=== PATIENT | female | born 1950 | race Caucasian/White ===

== ENCOUNTER 2019-12-01 11:28 | Inpatient (IN) | payer MEDICARE, SELFPAY ==
[2019-12-01] VITALS (11 sets, daily range): BP systolic 101–144; BP diastolic 49–87; PULSE 64–154; RESP 16–26; TEMP 36.1–36.4; O2SAT 98–100; BMI 31.3
--- NOTE | ~2019-12-01 | CT_ITS ---
EXAMINATION: CT abdomen pelvis w con EXAM DATE: 12/01/2019 21:01 INDICATION: Abdominal pain, bloating, fever and diarrhea. TECHNIQUE: Spiral CT of the abdomen and pelvis was performed following intravenous injection of 100 m L Omnipaque 350. Axial, coronal and sagittal images were reviewed. The dose-length product (DLP) fo r this examination was 680.92 mGy-cm. The exposure was tailored according to patient size (auto mA e xposure control), and iterative reconstruction (ASIR) was used as additional dose reduction technique . Comparison is made to prior examination from 02/17/2018. FINDINGS: The liver, spleen, adrenal glands and pancreas are unremarkable. There are cholecystectomy clips. Portal and splenic veins are patent. Kidneys enhance symmetrically. There is no hydronephr osis. The uterus is not identified and has likely been surgically resected. The bladder is unremar kable. There is no retroperitoneal or pelvic lymphadenopathy. There is mild scattered arterioscler otic disease. The appendix is not positively visualized. There is no pericecal inflammatory change to suggest appe ndicitis. Mild diffuse colonic edema, with colonic fluid. Mild sigmoid diverticulosis without adjac ent inflammation. There is expected amount of colonic stool. No free intraperitoneal gas. The he art is normal in size. There are no pericardial or pleural effusions. The lung bases are unremarkab le. There are no osteoblastic or osteolytic lesions identified. IMPRESSION: 1. Mild pancolitis. Could be enterocolitis given colonic fluid, diarrhea. 2. Mild sigmoid diverticulosis. Reviewed, dictated and finalized at location A. GATION INSTALLATION SPECIALIST
[2019-12-01 11:57] LABS: Basophils Absolute Auto 0.1 K/mm3 (0.0-0.1); Basophils Percent Auto 0.9 % (0.2-1.2); Eosinophils Absolute Auto 0.1 K/mm3 (0-0.3); Eosinophils Percent Auto 0.9 % (0-4.4); Hematocrit 42.3 % (37.0-47.0); Hemoglobin 14.2 g/dL (12.0-15.0); Immature Granulocyte Absolute 0.07 K/mm3 (0.00-0.031); Immature Granulocyte Percent A 0.6 % (0-0.5); Lymphocytes Absolute Auto 1.63 K/mm3 (0.9-3.2); Lymphocytes Percent Auto 14.1 % (18.3-44.2); Mean Corpuscular HGB Conc 33.6 g/dl (32-36); Mean Corpuscular Hemoglobin 29.3 pg (26-34); Mean Corpuscular Volume 87.2 fl (80-100); Mean Platelet Volume 9.8 fl (7.4-10.4); Monocytes Absolute Auto 0.6 K/mm3 (0.1-0.6); Monocytes Percent Auto 5.2 % (2.6-8.5); Neutrophils Absolute Auto 9.1 K/mm3 (1.3-6.7); Neutrophils Percent Auto 78.3 % (45.5-73.1); Platelet Count Result 468 k/mm3 (150-375); Red Blood Count 4.85 M/mm3 (4.2-5.4); Red Cell Distribution Width 13.2 % (11.5-14.5); White Blood Count 11.6 K/mm3 (4.5-10.0)
--- NOTE | 2019-12-01 12:03 | ECG_ITS ---
Measurements Intervals Veteran Rate: 116 P: [place]: 0 QRS: 73 QRSD: 101 T: -22 QT: 327 QTc: 455 Interpretive Statements ATRIAL FIBRILLATION WITH RAPID VENTRICULAR RESPONSE NONSPECIFIC ST & T-WAVE ABNORMALITY- INF/LAT LEADS BASELINE ARTIFACT- I, II, III, AVF ABNORMAL ECG Electronically Signed On 12-01-2019 13:22:34 BLENDER/BRAZE APPLICATOR by Neo Flores D.O.
[2019-12-01 12:09] LABS: Alanine Aminotransferase 26 U/L (4-35); Albumin Level 4.4 g/dL (3.5-5.1); Alkaline Phosphatase 92 U/L (38-126); Aspartate Amino Transferase 37 U/L (14-36); Bilirubin,Total 0.8 mg/dL (0.2-1.3); Blood Urea Nitrogen 12 mg/dL (7-17); Calcium 8.8 mg/dL (8.4-10.2); Carbon Dioxide 17 mmol/L (22-30); Chloride 103 mmol/L (98-107); Estimated CRCL calculation 52 ml/min; Estimated Glomerular Filt Rate > 60; Glucose 112 mg/dL (65-105); Lipase 34 U/L (23-300); Potassium 3.1 mmol/L (3.4-5.0); Sodium 136 mmol/L (137-145)
--- NOTE | 2019-12-01 12:22 | ED.NAVMDI ---
HPI - Nausea/Vomiting/Diarrhea General Chief complaint: Nausea/Vomiting/Diarrhea Stated complaint: fever, nausea, diarrhea Time Seen by Provider: 12/01/19 11:41 Source: patient and RN notes reviewed Mode of arrival: ambulatory Limitations: no limitations History of Present Illness HPI Narrative: Pt is a 69 y/o female who presents to the ED with c/o nausea, vomiting, and diarrhea. She notes that she took Amoxicillin 4 days ago for routine dental work, and states that she began having diarrhea the following day. Pt notes that she took a large amount of Imodium for her symptoms 3 days ago. She states that her diarrhea resolved 2 days ago, but returned around 12:00 PM yesterday. Pt notes that she also developed a fever, headache, and lightheadedness earlier yesterday. She states that she has had roughly 20 episodes of diarrhea throughout the night last night. Pt notes that her stools have been yellow and watery, and denies any gross hematochezia. She also reports having yellow-colored emesis and ABD cramping since yesterday. Pt notes that she has a Hx of A-Fib, and states that she began having palpitations earlier this morning. She currently denies any neck pain, cough, or rhinorrhea. MD elicited complaint: nausea, vomiting and diarrhea Onset (ago): day(s) (4) Description of vomiting: bilious Description of diarrhea: watery and other (yellow) Associated nausea: Yes Associated abdominal pain: Yes Location of pain: diffuse Quality: cramping Associated symptoms: fever/chills (fever), headaches, palpitation and other (lightheadedness) Related Data Home Medications Medication Instructions Recorded Confirmed aspirin 81 mg tablet,delayed 81 mg PO DAILY 09/29/19 12/01/19 release fluoxetine 20 mg capsule 20 mg PO DAILY 09/29/19 12/01/19 multivitamin 1 tablet PO DAILY 09/29/19 12/01/19 nifedipine 30 mg tablet,extended 30 mg PO DAILY 09/29/19 12/01/19 release pravastatin 10 mg tablet 10 mg PO DAILY 09/29/19 12/01/19 calcium carbonate [Calcium 600] 2,400 mg PO HS 12/01/19 12/01/19 cholecalciferol (vitamin D3) 5,000 unit PO HS 12/01/19 12/01/19 [Vitamin D3] cyanocobalamin (vitamin B-12) 6,000 mcg PO DAILY 12/01/19 12/01/19 [Vitamin B-12] metoprolol tartrate 50 mg PO Q12H 12/01/19 12/01/19 Allergies Allergy/AdvReac Type Severity Reaction Status Date / Time lisinopril Allergy Mild dizzy Verified 09/29/19 08:15 alendronate sodium Allergy Unknown Hives Verified 11/15/17 13:58 Review of Systems Review of Systems: All systems reviewed & are unremarkable except as noted in HPI and below Constitutional: Constitutional: Denies chills, Reports fever(s), Reports headache(s) and Denies weakness ENT: Denies nasal discharge and Denies neck pain Cardiovascular: Cardiovascular: Denies chest pain, Reports palpitations and Denies dyspnea Respiratory: Respiratory: Denies cough and Denies dyspnea Gastrointestinal: Gastrointestinal: Reports abdominal pain (ABD cramping), Denies hematochezia, Reports diarrhea, Reports nausea and Reports vomiting Genitourinary: Genitourinary: Denies hematuria and Denies dysuria Musculoskeletal: Musculoskeletal: Denies back pain and Denies neck pain Neurologic: Reports other (lightheadedness) PENDING SALE TO [facility] Past Medical History Medical History (Updated 12/02/19 @ 10:08 by Autumn Mcintosh MD) Anxiety Degenerative joint disease GERD (gastroesophageal reflux disease) History of rectal polyps Hypertension Hypothyroidism IBS (irritable bowel syndrome) MDD (major depressive disorder), recurrent episode, moderate Mixed hyperlipidemia Paroxysmal atrial fibrillation On metoprolol. She is not on long-term anticoagulation. Surgical History Surgical History (Updated 12/01/19 @ 22:12 by Piedad Galvan PA-C) History of hysterectomy History of total left knee replacement With revision. Hx of appendectomy Hx of carpal tunnel repair Hx of cataract surgery Hx of cholecystectomy Hx of tubal ligation S/P partial thyroid
[2019-12-01] MEDS: SODIUM CHLORIDE 0.9% IV 1,000 ML 999 ML IV CONT (12:54)
[2019-12-01] MEDS: POTASSIUM CHLORIDE 20 MEQ TABLET 40 MEQ PO (14:01)
[2019-12-01 14:24] LABS: Add Urine Microscopic? YES; Appearance Urine Clear (Clear); Bacteria Urine Trace /hpf; Bilirubin Urine Negative (Negative); Blood Urine 1+ (Negative); Color Urine Yellow (Yellow); Glucose Urine UA Negative (Negative); Ketones Urine Trace mg/dL (Negative); Leukocyte Esterase Ur Negative LEU/UL (Negative); Mucus Urine Rare /lpf; Nitrate Urine Negative (Negative); Protein Urine Negative (Negative); RBC Urine 0-2 /hpf (0-2); Specific Grav Ur 1.009 (1.001-1.035); Squamous Epithelial Cell Urine Occasional /hpf (Few); Urobilinogen Urine Negative mg/dL (<2.0)
--- NOTE | 2019-12-01 17:08 | ADMGEN ---
This patient, Eugenia Chang, was admitted to 2 Medical Room 255-01. Patient/family oriented to hospital policies and general routines including ID bracelet, bed and alarms, visiting hours, pain management, procedures, bathroom and other care routines, personal items, smoking policy, room service/diet, and visiting hours. Valuables list has been completed. Information on how to activate the Rapid Response Team has been discussed. Patient/Family are encouraged to report perceived risks to care and to ask questions if they do not understand what they are told or what they should do. Report received from PAULINE Beltran.
[2019-12-01] MEDS: SODIUM CHLORIDE 0.9% IV 1,000 ML 125 ML IV CONT (17:36)
--- NOTE | 2019-12-01 19:15 | PM.IMHP ---
H&P: HPI History of Present Illness Chief complaint: Fever, nausea, diarrhea. Narrative: Eugenia Chang is a very pleasant 69-year-old female with hypertension, hypothyroidism, paroxysmal atrial fibrillation, and GERD who presented to the emergency department earlier this morning from home for evaluation of nausea, diarrhea, and fever. She had a routine teeth cleaning at her dentist on Wednesday, and notes having to take prophylactic antibiotics (4 - 500 milligram tablets of amoxicillin) since a knee replacement. She was found to have a cavity at that visit, and returned on Wednesday to have that filled. She was instructed once again to take another dose of prophylactic antibiotics, again taking a total of 4 tablets of amoxicillin 500 milligrams. Later that afternoon, she began having diarrhea for which she took Imodium without much benefit. She continues to have innumerable bouts of diarrhea, at least 20 episodes per day. The stools are foul smelling and are described as yellow and watery in nature. Additionally, she has had nausea and notes 1 episode of emesis this morning. Yesterday evening she developed chills, shakes, and had a temperature of 103?. She has also been having diffuse abdominal cramping, more so in the lower abdomen. Today she was lightheaded and weak, and felt it would be best to come in for evaluation. She denies sick contacts. No recent travel. No history of C diff. She denies blood in mucus in the stool. Review of Systems Review of Systems: Narrative: Twelve systems were reviewed with pertinent positives and negatives as per HPI. No sinus congestion, rhinorrhea, otalgia, or odynophagia. She feels mildly short of breath, especially after having diarrhea. She denies cough and wheezing. No chest pain. She did go into AFib at about 0130 this morning, initially it was rapid but her heart rate slowed down after receiving IV fluids in the emergency department. She now believes that she is in a normal sinus rhythm. No dysuria. Except as documented, all other systems were reviewed and are negative. [facility] Past Medical History Medical History (Updated 12/01/19 @ 22:19 by Piedad Galvan PA-C) Anxiety Degenerative joint disease GERD (gastroesophageal reflux disease) History of rectal polyps Hypertension Hypothyroidism IBS (irritable bowel syndrome) MDD (major depressive disorder), recurrent episode, moderate Mixed hyperlipidemia Paroxysmal atrial fibrillation On metoprolol. She is not on long-term anticoagulation. Surgical History Surgical History (Updated 12/01/19 @ 22:12 by Piedad Galvan PA-C) History of hysterectomy History of total left knee replacement With revision. Hx of appendectomy Hx of carpal tunnel repair Hx of cataract surgery Hx of cholecystectomy Hx of tubal ligation S/P partial thyroidectomy For benign thyroid nodules. Family History Family History Mother Hypertension Uterine cancer High cholesterol Sibling PAD (peripheral artery disease) Hx of heart artery stent Father Family history of heart disease in male family member before age 55, Onset Age: 70 CHF (congestive heart failure) Sibling Hypertension High cholesterol Sibling Pancreatic cancer History of quadruple bypass CHF (congestive heart failure) Social History Social History (Updated 12/01/19 @ 22:12 by Piedad Galvan PA-C) Social History: The patient is and lives with her in [place]. 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 No alcohol or drug abuse. She designates her as her surrogate decision maker and she wishes to be a full code. Spiritual care concerns: No Agree to blood products: Yes Meds Home Medications and Allergies Home Medications Medication Instructions Recorded Confirmed Type aspirin 81 m
[2019-12-01 20:29] LABS: Lactic Acid Reflex 1.2 mmol/L (0.7-2.1)
[2019-12-01 20:38] LABS: Blood Urea Nitrogen 11 mg/dL (7-17); Calcium 8.5 mg/dL (8.4-10.2); Carbon Dioxide 27 mmol/L (22-30); Chloride 104 mmol/L (98-107); Estimated CRCL calculation 59 ml/min; Estimated Glomerular Filt Rate > 60; Glucose 113 mg/dL (65-105); Magnesium 1.7 mg/dL (1.6-2.3); Phosphorus 1.7 mg/dL (2.5-4.5); Potassium 2.8 mmol/L (3.4-5.0); Sodium 139 mmol/L (137-145)
--- NOTE | 2019-12-01 22:45 | PC.NURSE ---
12-01-2019 @1445, called and left message for pharmacy for IV dose of potassium phos
[2019-12-01] MEDS: METOPROLOL TARTRATE 50 MG TAB PO (22:46)
[2019-12-01] MEDS: CALCIUM CARBONATE (TUMS) 500 MG (200 MG ELEMENTAL) 800 MG PO (22:46)
--- NOTE | 2019-12-01 23:30 | PC.NURSE ---
12/01/2019 @5163. 2nd call to pharmacy to get IV potassium phos. Per Masood he will send it up
[2019-12-01] MEDS: VANCOMYCIN ORAL 125 MG/2.5 ML SYRUP PO (23:40)
[2019-12-01] MEDS: CHOLECALCIFEROL 1,000 UNIT TABLET 5000 UNITS PO (23:40)
[2019-12-01] MEDS: POTASSIUM PHOS,M-BASIC-D-BASIC 20 MMOL in SODIUM CHLORIDE 0.9% IV 250 ML 62.5 MMOL IVPB (23:40)
[2019-12-02] VITALS (10 sets, daily range): BP systolic 124–137; BP diastolic 54–64; PULSE 63–83; RESP 16; TEMP 36.2–36.4; O2SAT 98–100
[2019-12-02 05:35] LABS: Basophils Percent Auto 0.5 % (0.2-1.2); Eosinophils Absolute Auto 0.2 K/mm3 (0-0.3); Eosinophils Percent Auto 1.9 % (0-4.4); Hematocrit 33.2 % (37.0-47.0); Immature Granulocyte Absolute 0.05 K/mm3 (0.00-0.031); Immature Granulocyte Percent A 0.6 % (0-0.5); Lymphocytes Absolute Auto 1.78 K/mm3 (0.9-3.2); Lymphocytes Percent Auto 20.3 % (18.3-44.2); Mean Corpuscular HGB Conc 33.1 g/dl (32-36); Mean Corpuscular Volume 90.5 fl (80-100); Mean Platelet Volume 9.9 fl (7.4-10.4); Monocytes Absolute Auto 0.7 K/mm3 (0.1-0.6); Monocytes Percent Auto 7.5 % (2.6-8.5); Neutrophils Absolute Auto 6.1 K/mm3 (1.3-6.7); Neutrophils Percent Auto 69.2 % (45.5-73.1); Platelet Count Result 355 k/mm3 (150-375); Red Blood Count 3.67 M/mm3 (4.2-5.4); Red Cell Distribution Width 13.4 % (11.5-14.5); White Blood Count 8.8 K/mm3 (4.5-10.0)
[2019-12-02] MEDS: SODIUM CHLORIDE 0.9% IV 1,000 ML 125 ML IV CONT (05:44)
[2019-12-02] MEDS: LEVOTHYROXINE SODIUM 100 MCG TABLET PO (05:44)
[2019-12-02] MEDS: VANCOMYCIN ORAL 125 MG/2.5 ML SYRUP PO ×3 (05:44→17:00)
[2019-12-02 05:54] LABS: Blood Urea Nitrogen 8 mg/dL (7-17); Calcium 8.2 mg/dL (8.4-10.2); Carbon Dioxide 23 mmol/L (22-30); Chloride 104 mmol/L (98-107); Estimated CRCL calculation 59 ml/min; Estimated Glomerular Filt Rate > 60; Glucose 82 mg/dL (65-105); Magnesium 1.8 mg/dL (1.6-2.3); Potassium 3.4 mmol/L (3.4-5.0); Sodium 137 mmol/L (137-145)
[2019-12-02] MEDS: ASPIRIN 81 MG ENTERIC TABLET PO (08:52)
[2019-12-02] MEDS: CYANOCOBALAMIN 1,000 MCG TABLET 6000 MCG PO (08:52)
[2019-12-02] MEDS: FLUOXETINE HCL 20 MG CAP PO (08:53)
[2019-12-02] MEDS: NIFEdipine 30 MG TAB.ER.24 PO (08:53)
[2019-12-02] MEDS: PANTOPRAZOLE SOD SESQUIHYDRATE 20 MG TAB PO ×2 (08:54→16:56)
[2019-12-02] MEDS: METOPROLOL TARTRATE 50 MG TAB PO ×2 (08:55→21:24)
[2019-12-02] MEDS: PRAVASTATIN SODIUM 10 MG TABLET PO (08:55)
--- NOTE | 2019-12-02 09:38 | PM.IMPN ---
Progress Note: A&P Assessment and Plan (1) Colitis: Code(s): K52.9 - Noninfective gastroenteritis and colitis, unspecified Status: Acute Assessment and Plan: Concern for C diff given recent antibiotic use. Empiric p.o. vancomycin, pending lab confirmation. C diff toxin pending along with stool cultures at this time. The patient is on isolation for possible C diff. (2) Dehydration: Code(s): E86.0 - Dehydration Status: Acute Assessment and Plan: Secondary to volume loss from diarrhea. She was receiving aggressive IV fluid rehydration, but fluids were stopped this morning due to euvolemia. Will monitor electrolytes and bicarb levels closely. (3) Hypokalemia: Code(s): E87.6 - Hypokalemia Status: Acute Assessment and Plan: Potassium will be replaced and monitored. (4) Hypertension: Code(s): I10 - Essential (primary) hypertension Status: Acute Assessment and Plan: Blood pressures were reviewed and they are stable. Continue antihypertensives and monitor daily. (5) GERD (gastroesophageal reflux disease): Code(s): K21.9 - Gastro-esophageal reflux disease without esophagitis Status: Acute Assessment and Plan: No acute issues. Continue omeprazole. (6) Hypothyroidism: Code(s): E03.9 - Hypothyroidism, unspecified Status: Acute Assessment and Plan: Continue levothyroxine. (7) Paroxysmal atrial fibrillation: Code(s): I48.0 - Paroxysmal atrial fibrillation Status: Acute Assessment and Plan: Currently sounds to be in a normal sinus rhythm. Patient reports she was in AFib earlier this morning. Today her telemetry shows normal sinus rhythm with a heart rate of 66 with no abnormal arrhythmias noted. Will DC telemetry at this time. Continue metoprolol. Time Spent With Patient Time with patient: 25 - 35 minutes Subjective Date/time seen: 12/02/19 09:38 Interval history: Date of service 12/02/2019: The patient reports 6 bowel movements within the last few hours this morning. The patient states it is more yellow and there is some substance to her stools now. She continues to have some intermittent abdominal cramping but it is improved. She denies any fevers, chills, nausea, vomiting, chest pain, shortness of breath, leg swelling, calf pain or any other symptoms at this time. Review of Systems Review of Systems: All systems reviewed & are unremarkable except as noted in HPI and below Exam Narrative: Exam Narrative: General: 69-year-old woman sitting up on the side of the bed talking to her . Appears comfortable. In no acute distress. Skin: No jaundice or cyanosis. Good skin turgor. Neck: Full range of motion. Supple. Respiratory: Lungs are clear to auscultation bilaterally. No bony chest wall tenderness. Cardiovascular: The heart has a regular rate and rhythm without murmur. Lower extremities: No lower extremity edema. Distal pulses are easily palpated. No calf tenderness to palpation. Gastrointestinal: Mild diffuse tenderness of her abdomen with palpation. The abdomen is soft and nondistended with active bowel sounds. Psychiatric: Lucid and oriented. Memory intact. Neurologic: No focal deficits. Speech is clear. No facial drooping. Objective Data Vital Signs Vital Signs: Vital Signs - 24 hr 12/01/19 11:38 12/01/19 11:59 12/01/19 12:04 Temperature 97.6 F Pulse Rate 64 154 H Respiratory Rate 16 26 H Blood Pressure 101/49 L 106/81 119/74 Pulse Oximetry 100 12/01/19 12:05 12/01/19 14:30 12/01/19 16:23 Temperature Pulse Rate 94 115 H Respiratory Rate 16 23 H Blood Pressure 106/81 119/74 Pulse Oximetry 98 12/01/19 17:19 12/01/19 17:45 12/01/19 20:00 Temperature 96.9 F L Pulse Rate 77 78 76 Respiratory Rate 18 Blood Pressure 144/70 H Pulse Oximetry 100 12/01/19 22:00 12/01/19 2
[2019-12-02] MEDS: POTASSIUM CHLORIDE 20 MEQ TABLET 40 MEQ PO (09:41)
[2019-12-02] MEDS: MAGNESIUM SULF 2 GM/WATER 50ML 2 GM/50 ML BAG IVPB (09:41)
[2019-12-02] MEDS: CHOLECALCIFEROL 1,000 UNIT TABLET 5000 UNITS PO (21:23)
[2019-12-02] MEDS: CALCIUM CARBONATE (TUMS) 500 MG (200 MG ELEMENTAL) 800 MG PO (21:25)
[2019-12-03] MEDS: VANCOMYCIN ORAL 125 MG/2.5 ML SYRUP PO ×5 (00:09→23:48)
--- NOTE | 2019-12-03 03:06 | PC.NURSE ---
Daylight Savings Time For Daylight Savings Time Ending in the Fall - Clocks are moved back. For Daylight Savings Time Beginning in the Spring - Clocks are moved ahead. For [facility], the time of change occurs at 0200 hrs. Time is taken from the room service server. This entry on the patient's chart recognizes the change in time reflected during documentation. Example: 2 entries for vital signs may be charted for 0200 hrs.
[2019-12-03 05:42] LABS: Hematocrit 32.3 % (37.0-47.0); Hemoglobin 10.5 g/dL (12.0-15.0); Mean Corpuscular HGB Conc 32.5 g/dl (32-36); Mean Corpuscular Hemoglobin 29.6 pg (26-34); Mean Platelet Volume 9.8 fl (7.4-10.4); Platelet Count Result 373 k/mm3 (150-375); Red Blood Count 3.55 M/mm3 (4.2-5.4); Red Cell Distribution Width 13.5 % (11.5-14.5)
[2019-12-03] MEDS: LEVOTHYROXINE SODIUM 100 MCG TABLET PO (05:49)
[2019-12-03 05:52] LABS: Blood Urea Nitrogen 6 mg/dL (7-17); Calcium 8.6 mg/dL (8.4-10.2); Carbon Dioxide 25 mmol/L (22-30); Chloride 110 mmol/L (98-107); Estimated CRCL calculation 66 ml/min; Estimated Glomerular Filt Rate > 60; Glucose 95 mg/dL (65-105); Magnesium 1.9 mg/dL (1.6-2.3); Potassium 3.6 mmol/L (3.4-5.0); Sodium 138 mmol/L (137-145)
[2019-12-03 06:00] VITALS: BP 130/56; PULSE 59; RESP 16; TEMP 36; O2SAT 99
[2019-12-03] MEDS: CYANOCOBALAMIN 1,000 MCG TABLET 6000 MCG PO (08:52)
[2019-12-03] MEDS: ASPIRIN 81 MG ENTERIC TABLET PO (08:52)
[2019-12-03 08:53] VITALS: PULSE 66
[2019-12-03] MEDS: METOPROLOL TARTRATE 50 MG TAB PO ×2 (08:53→21:09)
[2019-12-03] MEDS: FLUOXETINE HCL 20 MG CAP PO (08:53)
[2019-12-03] MEDS: PANTOPRAZOLE SOD SESQUIHYDRATE 20 MG TAB PO ×2 (08:53→17:12)
[2019-12-03] MEDS: NIFEdipine 30 MG TAB.ER.24 PO (08:53)
[2019-12-03] MEDS: PRAVASTATIN SODIUM 10 MG TABLET PO (08:53)
[2019-12-03 14:00] VITALS: BP 136/75; PULSE 66; RESP 18; TEMP 36.7; O2SAT 98
--- NOTE | 2019-12-03 15:34 | PM.IMPN ---
Progress Note: A&P Assessment and Plan (1) Colitis: Code(s): K52.9 - Noninfective gastroenteritis and colitis, unspecified Status: Acute Assessment and Plan: Concern for C diff given recent antibiotic use. Empiric p.o. vancomycin, pending lab confirmation. C diff toxin pending along with stool cultures at this time. The patient is on isolation for possible C diff. (2) Dehydration: Code(s): E86.0 - Dehydration Status: Acute Assessment and Plan: Secondary to volume loss from diarrhea. She is euvolemic. Will monitor electrolytes and bicarb levels closely. (3) Hypokalemia: Code(s): E87.6 - Hypokalemia Status: Acute Assessment and Plan: Potassium will be replaced and monitored. (4) Hypertension: Code(s): I10 - Essential (primary) hypertension Status: Acute Assessment and Plan: Blood pressures were reviewed and they are stable. Continue antihypertensives and monitor daily. (5) GERD (gastroesophageal reflux disease): Code(s): K21.9 - Gastro-esophageal reflux disease without esophagitis Status: Acute Assessment and Plan: No acute issues. Continue omeprazole. (6) Hypothyroidism: Code(s): E03.9 - Hypothyroidism, unspecified Status: Acute Assessment and Plan: Continue levothyroxine. (7) Paroxysmal atrial fibrillation: Code(s): I48.0 - Paroxysmal atrial fibrillation Status: Acute Assessment and Plan: Currently sounds to be in a normal sinus rhythm. Patient reports she was in AFib earlier this morning. Today her telemetry shows normal sinus rhythm with a heart rate of 66 with no abnormal arrhythmias noted. Will DC telemetry at this time. Continue metoprolol. Time Spent With Patient Time with patient: 25 - 35 minutes Subjective Date/time seen: 12/03/19 15:34 Interval history: Date of service 12/03/2019: The patient is feeling better todays. She has had a few bowel movements today and they are more formed, brown in color, and denies any abdominal craming. She is eating and drinking without any issues. She denies any fevers, chills, nausea, vomiting, chest pain, shortness of breath, leg swelling, calf pain or any other symptoms at this time. Review of Systems Review of Systems: All systems reviewed & are unremarkable except as noted in HPI and below Exam Narrative: Exam Narrative: General: 69-year-old woman sitting up on the side of the bed doing a word search. Appears comfortable. In no acute distress. Skin: No jaundice or cyanosis. Good skin turgor. Neck: Full range of motion. Supple. Respiratory: Lungs are clear to auscultation bilaterally. No bony chest wall tenderness. Cardiovascular: The heart has a regular rate and rhythm without murmur. Lower extremities: No lower extremity edema. Distal pulses are easily palpated. No calf tenderness to palpation. Gastrointestinal: The abdomen is soft, nontender and nondistended with active bowel sounds. Psychiatric: Lucid and oriented. Memory intact. Neurologic: No focal deficits. Speech is clear. No facial drooping. Objective Data Vital Signs Vital Signs: Vital Signs - 24 hr 12/02/19 16:00 12/02/19 21:24 12/02/19 21:34 Temperature 97.2 F L Pulse Rate 82 82 66 Respiratory Rate 16 Blood Pressure 129/57 L Pulse Oximetry 99 12/03/19 06:00 12/03/19 08:53 Temperature 96.8 F L Pulse Rate 59 L 66 Respiratory Rate 16 Blood Pressure 130/56 L Pulse Oximetry 99 Intake/Output Intake/Output: Intake & Output 11/30/19 12/01/19 12/02/19 12/04/19 23:59 23:59 23:59 00:59 Intake Total 1360 3081 1040 Output Total 1350 900 Balance 1360 1731 140 Meds/Results Medications: Active Medications Generic Name Dose Route Start Last Admin Trade Name Freq PRN Reason Stop Dose Admin Aspirin 81 mg 12/02/19 09:00 12/03/19 08:52 Aspirin Ec PO 81 mg
[2019-12-03] MEDS: CHOLECALCIFEROL 1,000 UNIT TABLET 5000 UNITS PO (21:08)
[2019-12-03] MEDS: CALCIUM CARBONATE (TUMS) 500 MG (200 MG ELEMENTAL) 800 MG PO (21:08)
[2019-12-03 21:09] VITALS: PULSE 68
[2019-12-03 21:14] VITALS: BP 160/73; PULSE 68; RESP 18; TEMP 36.2; O2SAT 100
[2019-12-04 06:00] VITALS: BP 134/71; PULSE 61; RESP 16; TEMP 36.1; O2SAT 100
[2019-12-04] MEDS: VANCOMYCIN ORAL 125 MG/2.5 ML SYRUP PO ×2 (06:43→12:46)
[2019-12-04] MEDS: LEVOTHYROXINE SODIUM 100 MCG TABLET PO (06:43)
[2019-12-04 07:07] LABS: Blood Urea Nitrogen 4 mg/dL (7-17); Calcium 8.6 mg/dL (8.4-10.2); Carbon Dioxide 25 mmol/L (22-30); Chloride 105 mmol/L (98-107); Estimated CRCL calculation 66 ml/min; Estimated Glomerular Filt Rate > 60; Glucose 85 mg/dL (65-105); Magnesium 1.7 mg/dL (1.6-2.3); Potassium 3.4 mmol/L (3.4-5.0); Sodium 138 mmol/L (137-145)
[2019-12-04 07:57] VITALS: PULSE 61
[2019-12-04] MEDS: PRAVASTATIN SODIUM 10 MG TABLET PO (07:57)
[2019-12-04] MEDS: NIFEdipine 30 MG TAB.ER.24 PO (07:57)
[2019-12-04] MEDS: CYANOCOBALAMIN 1,000 MCG TABLET 6000 MCG PO (07:57)
[2019-12-04] MEDS: METOPROLOL TARTRATE 50 MG TAB PO (07:57)
[2019-12-04] MEDS: PANTOPRAZOLE SOD SESQUIHYDRATE 20 MG TAB PO (07:58)
[2019-12-04] MEDS: FLUOXETINE HCL 20 MG CAP PO (07:58)
[2019-12-04] MEDS: ASPIRIN 81 MG ENTERIC TABLET PO (07:58)
[2019-12-04] MEDS: MAGNESIUM SULF 2 GM/WATER 50ML 2 GM/50 ML BAG IVPB (10:46)
[2019-12-04] MEDS: POTASSIUM CHLORIDE 20 MEQ TABLET 40 MEQ PO (10:47)
[2019-12-04 14:00] VITALS: BP 141/63; PULSE 63; RESP 18; TEMP 36.1; O2SAT 98
--- NOTE | 2019-12-04 15:47 | PM.DS ---
DS: Diagnosis Admitting Diagnosis Admitting Diagnosis: Noninfective gastroenteritis and colitis, unspecified Discharge Diagnosis (1) Colitis: Code(s): K52.9 - Noninfective gastroenteritis and colitis, unspecified Status: Acute Assessment and Plan: Concern for C diff given recent antibiotic use. Her stools are becoming much more formed and brown. C diff toxin was negative but she was positive for both GDH and PCR. Will continue her on oral vancomycin for C diff diagnosis for a total of 10 days and recommend her taking probiotics daily. (2) Dehydration: Code(s): E86.0 - Dehydration Status: Acute Assessment and Plan: Secondary to volume loss from diarrhea. She is euvolemic. Recommended her continue to drink plenty of water to stay hydrated. (3) Hypokalemia: Code(s): E87.6 - Hypokalemia Status: Acute Assessment and Plan: Potassium will be replaced and monitored. (4) Hypertension: Code(s): I10 - Essential (primary) hypertension Status: Acute Assessment and Plan: Blood pressures were reviewed and they are stable. Continue antihypertensives and monitor daily. (5) GERD (gastroesophageal reflux disease): Code(s): K21.9 - Gastro-esophageal reflux disease without esophagitis Status: Acute Assessment and Plan: No acute issues. Continue omeprazole. (6) Hypothyroidism: Code(s): E03.9 - Hypothyroidism, unspecified Status: Acute Assessment and Plan: Continue levothyroxine. (7) Paroxysmal atrial fibrillation: Code(s): I48.0 - Paroxysmal atrial fibrillation Status: Acute Assessment and Plan: Currently sounds to be in a normal sinus rhythm. Patient reports she was in AFib on arrival. Continue metoprolol. DS: Summary Hospital Course Reason for hospitalization: The patient is a 69 year old woman with history of HTN, parysxmal afib, IBS, who presented to the ER with worsening watery diarrhea over the last 3 days. The patient was at the dentist and had to take prophylactic Amoxicillin 4x 500 mg tablets both Wednesday and Wednesday. The patient began having diarrhea Wednesday and by Wednesday she was having 20 episodes per day and decided to come into the hospital. Initial labs showed temp 97.6F, BP 101/49, HR 64, RR 16, O2 100% on RA. Initial labs showed leukocytosis at 11,600, with a left shift, slight hyponatremia at 136, hypokalemia at 3.1, CO2 17, otherwise normal. CT Abd/pelvis showed Mild pancolitis. Could be enterocolitis given colonic fluid, diarrhea. Mild sigmoid diverticulosis. She was admitted into the hospital with possible C.diff, stool cultures sent, IV fluids, and PO Vancomycin. She slowly improved with her symptoms and C. diff GDH antigen was detected, Toxin A&B were not detected but the Toxin B PCR was detected. She was diagnosed with C diff to continue PO Vancomycin and follow up with PCP. Status at Discharge Cognitive/behavioral status at discharge: Stable, improved. Time Spent with Patient Time attestation: Total time spent providing and/or coordinating discharge services: Time spent: Greater than 30 minutes Exam Narrative: Exam Narrative: General: 69-year-old woman sitting up in bed reading a book. Appears comfortable. In no acute distress. Skin: No jaundice or cyanosis. Good skin turgor. Neck: Full range of motion. Supple. Respiratory: Lungs are clear to auscultation bilaterally. No bony chest wall tenderness. Cardiovascular: The heart has a regular rate and rhythm without murmur. Lower extremities: No lower extremity edema. Distal pulses are easily palpated. No calf tenderness to palpation. Gastrointestinal: The abdomen is soft, nontender and nondistended with active bowel sounds. Psychiatric: Lucid and oriented. Memory intact. Neurologic: No focal deficits. Speech is clear. No facial drooping. DS: Data Data Completed an
== END 2019-12-04 16:38 | disposition home or self-care (01) | DRG 373 ==
LOC: ANHED 15:59 → ANH2MED 16:25
PROVIDERS: Physician Assistant; Admitting Provider Family Medicine; Emergency Provider Emergency Medicine; PCP Family Medicine; Visit Provider Internal Medicine
DX: A04.72 Enterocolitis due to Clostridium difficile, not specified as recurrent (principal); E86.0 Dehydration; E87.6 Hypokalemia; I48.0 Paroxysmal atrial fibrillation; I10 Essential (primary) hypertension; K21.9 Gastro-esophageal reflux disease without esophagitis; E03.9 Hypothyroidism, unspecified; K58.9 Irritable bowel syndrome, unspecified; F41.8 Other specified anxiety disorders; E78.2 Mixed hyperlipidemia; Z96.652 Presence of left artificial knee joint; Z90.49 Acquired absence of other specified parts of digestive tract; Z90.710 Acquired absence of both cervix and uterus
CPT/HCPCS: 36415; 74177; 80048; 80053; 81001; 83605; 83690; 83735; 84100; 85025; 85027; 87040; 87045; 87046; 87324; 87427; 87493; 87804; 93005; 96361; 96365; 96366; 96367; 99285; A9270; G0378; J3475; J7030; J7050; Q9967

== ENCOUNTER 2019-12-20 12:05 | Emergency (ER) | payer MEDICARE, SELFPAY ==
[2019-12-20 12:18] VITALS: BP 145/86; PULSE 55; RESP 18; TEMP 36.8; O2SAT 99
--- NOTE | 2019-12-20 12:20 | ED.NAVMDI ---
HPI - Nausea/Vomiting/Diarrhea General Chief complaint: Nausea/Vomiting/Diarrhea Stated complaint: DIARRHEA,FEVER,HX C DIFF Time Seen by Provider: 12/20/19 12:18 Source: patient Mode of arrival: ambulatory Limitations: no limitations History of Present Illness HPI Narrative: Pt is a 69 y/o female who presents to the ED with c/o diarrhea that started at 0230. She states that she has had 5 episodes of watery loose diarrhea since 0230. She reports associated fever of 101.5, chills, and ABD cramps. Pt notes that she was admitted to the hospital on 12/01/19 until 12/04/19 for C.diff. She finished her Vancomycin a week ago. Pt notes that she took 2 Tylenol at 1100 for her fever. She is able to keep fluids down and she denies any vomiting. Pt reports a H/O HTN and HLD, but denies a H/O DM, emphysema, asthma, COPD, NE, or CVA. She is a nonsmoker and a nondrinker. MD elicited complaint: diarrhea Pertinent past history: other (C.diff) Onset (ago): hour(s) (10) Description of diarrhea: watery and other (loose) Associated abdominal pain: Yes Quality: cramping Context: other (Dx with C.diff on 12/01/19) Associated symptoms: fever/chills (101.5) Treatment prior to arrival: other (2 Tylenol ) Related Data Home Medications Medication Instructions Recorded Confirmed aspirin 81 mg tablet,delayed 81 mg PO DAILY 09/29/19 12/01/19 release multivitamin 1 tablet PO DAILY 09/29/19 12/01/19 nifedipine 30 mg tablet,extended 30 mg PO DAILY 09/29/19 12/01/19 release pravastatin 10 mg tablet 10 mg PO DAILY 09/29/19 12/01/19 calcium carbonate [Calcium 600] 2,400 mg PO HS 12/01/19 12/01/19 cholecalciferol (vitamin D3) 5,000 unit PO HS 12/01/19 12/01/19 [Vitamin D3] cyanocobalamin (vitamin B-12) 6,000 mcg PO DAILY 12/01/19 12/01/19 [Vitamin B-12] Allergies Allergy/AdvReac Type Severity Reaction Status Date / Time lisinopril Allergy Mild dizzy Verified 12/20/19 12:32 alendronate sodium Allergy Unknown Hives Verified 12/20/19 12:32 Review of Systems Review of Systems: All systems reviewed & are unremarkable except as noted in HPI and below Constitutional: Constitutional: Reports chills, Reports fever(s) (101.5) and Denies other (decreased intake) Gastrointestinal: Gastrointestinal: Reports abdominal pain (cramps), Reports diarrhea and Denies vomiting PMFSH Past Medical History Medical History Anxiety Degenerative joint disease GERD (gastroesophageal reflux disease) History of rectal polyps Hypertension Hypothyroidism IBS (irritable bowel syndrome) MDD (major depressive disorder), recurrent episode, moderate Mixed hyperlipidemia Paroxysmal atrial fibrillation On metoprolol. She is not on long-term anticoagulation. Surgical History Surgical History History of hysterectomy History of total left knee replacement With revision. Hx of appendectomy Hx of carpal tunnel repair Hx of cataract surgery Hx of cholecystectomy Hx of tubal ligation S/P partial thyroidectomy For benign thyroid nodules. Social History Social History (Updated 12/20/19 @ 12:43 by Amanda Roth) Social History: The patient is and lives with her in [place]. 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 No alcohol or drug abuse. She designates her as her surrogate decision maker and she wishes to be a full code. Smoking status: Never smoker Alcohol intake: never Spiritual care concerns: No Agree to blood products: Yes Exam Narrative: Exam Narrative: General appearance: Well-developed, well-nourished Skin: Normal color Head: Normocephalic, nontraumatic Eyes: Clear conjunctiva ENT: Oropharynx normal, ears normal, nose normal Neck: Supple, nontender Chest and respiratory: Airway patent, no respiratory distress, no accessory muscle use He
[2019-12-20 13:01] LABS: Basophils Absolute Auto 0.1 K/mm3 (0.0-0.1); Basophils Percent Auto 1.3 % (0.2-1.2); Eosinophils Absolute Auto 0.3 K/mm3 (0-0.3); Eosinophils Percent Auto 4.7 % (0-4.4); Hematocrit 40.4 % (37.0-47.0); Hemoglobin 12.9 g/dL (12.0-15.0); Immature Granulocyte Absolute 0.02 K/mm3 (0.00-0.031); Immature Granulocyte Percent A 0.3 % (0-0.5); Lymphocytes Percent Auto 35.3 % (18.3-44.2); Mean Corpuscular HGB Conc 31.9 g/dl (32-36); Mean Corpuscular Hemoglobin 29.3 pg (26-34); Mean Corpuscular Volume 91.6 fl (80-100); Mean Platelet Volume 9.8 fl (7.4-10.4); Monocytes Absolute Auto 0.7 K/mm3 (0.1-0.6); Neutrophils Absolute Auto 3.3 K/mm3 (1.3-6.7); Neutrophils Percent Auto 48.4 % (45.5-73.1); Platelet Count Result 516 k/mm3 (150-375); Red Blood Count 4.41 M/mm3 (4.2-5.4); Red Cell Distribution Width 13.1 % (11.5-14.5); White Blood Count 6.8 K/mm3 (4.5-10.0)
[2019-12-20] MEDS: SODIUM CHLORIDE 0.9% IV 1,000 ML 999 ML IV CONT (13:03)
[2019-12-20 13:13] LABS: Alanine Aminotransferase 19 U/L (4-35); Albumin Level 4.5 g/dL (3.5-5.1); Alkaline Phosphatase 83 U/L (38-126); Aspartate Amino Transferase 26 U/L (14-36); Bilirubin,Total 0.3 mg/dL (0.2-1.3); Blood Urea Nitrogen 21 mg/dL (7-17); Carbon Dioxide 29 mmol/L (22-30); Chloride 95 mmol/L (98-107); Estimated CRCL calculation 58 ml/min; Estimated Glomerular Filt Rate > 60; Glucose 90 mg/dL (65-105); Potassium 4.4 mmol/L (3.4-5.0); Sodium 134 mmol/L (137-145)
[2019-12-20] MEDS: MORPHINE SULFATE 4 MG/ML INJ IV PUSH (13:16)
[2019-12-20] MEDS: ONDANSETRON INJ 4 MG/2 ML VIAL IV PUSH (13:17)
[2019-12-20] MEDS: VANCOMYCIN ORAL 125 MG/2.5 ML SYRUP PO (14:02)
[2019-12-20 14:15] VITALS: BP 142/64; PULSE 90; RESP 16; O2SAT 97
== END 2019-12-20 14:15 | disposition home or self-care (01) ==
PROVIDERS: Emergency Provider Emergency Medicine; PCP Family Medicine
DX: R19.7 Diarrhea, unspecified (principal); K21.9 Gastro-esophageal reflux disease without esophagitis; Z87.19 Personal history of other diseases of the digestive system; I10 Essential (primary) hypertension; E78.2 Mixed hyperlipidemia; I48.0 Paroxysmal atrial fibrillation; Z98.49 Cataract extraction status, unspecified eye; E89.0 Postprocedural hypothyroidism; Z79.82 Long term (current) use of aspirin; Z96.652 Presence of left artificial knee joint
CPT/HCPCS: 36415; 80053; 85025; 96361; 96374; 96375; 99284; A9270; J2270; J2405; J7030

== ENCOUNTER 2020-05-01 16:05 | Outpatient (CLI) | payer MEDICARE, SELFPAY ==
--- NOTE | ~2020-05-01 | CT_ITS ---
EXAMINATION: CT brain & sinus wo con DATE: 05/01/2020 16:50 INDICATION: Dizziness, giddiness. Right facial pain and numbness. TECHNIQUE: Computed tomography (CT) of the head was performed without intravenous contrast. The mA wa s adjusted according to patient size. Iterative reconstruction technique was employed. Exam dose: 60 5.33 mGy-cm total exam DLP. COMPARISON: 03/14/2018 CT brain FINDINGS: No intracranial mass lesion or hemorrhage or cerebrovascular accident, midline shift or mas s effect is detected. Bilateral carotid siphon internal carotid artery calcifications. Mild nonspecif ic diminished attenuation of the cerebral white matter, likely due to chronic small vessel ischemic c hanges. Normal ventricular size. No subdural or epidural hematoma. No fracture or bone destruction of the cranial vault The paranasal sinuses are normally developed and aerated. The ostiomeatal units are patent. The mastoid air cells are aerated. Middle and inner ear apparatus appear unremarkable. IMPRESSION: No acute intracranial finding Cerebral atherosclerosis No significant abnormality of the paranasal sinuses or ostiomeatal units or mastoid air cells Reviewed, dictated and finalized at [facility]. Reviewed, dictated and finalized at location [facility]. IMPRESSION: No acute intracranial finding Cerebral atherosclerosis No significant abnormality of the paranasal sinuses or ostiomeatal units or mas toid air cells
== END 2020-05-01 16:06 | disposition home or self-care (01) ==
LOC: ANHIMG 16:07
PROVIDERS: PCP Family Medicine; Visit Provider Family Medicine
DX: R51 Headache (principal); R42 Dizziness and giddiness; I67.2 Cerebral atherosclerosis
CPT/HCPCS: 70450; 70486

== ENCOUNTER 2020-05-09 12:29 | Outpatient (CLI) | payer MEDICARE, SELFPAY ==
[2020-05-09 13:14] LABS: Erythrocyte Sedimentation Rate 42 mm/hr (0-20)
[2020-05-14 21:21] LABS: CRP, High Sensitivity 2.7 mg/L (***)
== END 2020-05-09 12:30 | disposition home or self-care (01) ==
PROVIDERS: PCP Family Medicine; Visit Provider Family Medicine
DX: R51 Headache (principal)
CPT/HCPCS: 36415; 85652; 86141

== ENCOUNTER 2020-05-20 00:16 | Outpatient (CLI) | payer MEDICARE, SELFPAY ==
[2020-05-20 19:31] LABS: SARS-CoV-2 RNA PCR Negative
== END 2020-05-20 00:17 | disposition home or self-care (01) ==
LOC: ANHCOVIDDT 00:17
PROVIDERS: PCP Family Medicine; Visit Provider Surgery
DX: Z01.812 Encounter for preprocedural laboratory examination (principal); Z20.828 Contact with and (suspected) exposure to other viral communicable diseases
CPT/HCPCS: 87635; C9803; U0003

== ENCOUNTER 2020-05-22 02:54 | Day surgery (SDC) | payer MEDICARE, SELFPAY ==
[2020-05-20 14:52] VITALS: BMI 32.8
--- NOTE | 2020-05-21 12:40 | P.PNAN_ITS ---
Anes - Initial Pre Proc Eval Procedure: Operation Date: 05/22/20 07:30 Proposed Procedures p Right Temporal Artery Biopsy - Hemant Cho DO Date/Time: 05/21/20 12:40 Surgeon: Hemant Cho DO Pre Op Diagnosis: Rt Temporal Headache Patient Data Age: 70 Gender: F Height: 5 ft 3 in Weight: 83.95 kg Allergies Allergy/AdvReac Type Severity Reaction Status Date / Time lisinopril Allergy Mild dizzy Verified 05/22/20 06:20 alendronate sodium Allergy Unknown Hives Verified 05/22/20 06:20 Home Medications Medication Instructions Recorded Confirmed Type aspirin 81 mg tablet,delayed 81 mg PO DAILY 09/29/19 05/22/20 History release multivitamin 1 tablet PO DAILY 09/29/19 05/22/20 History nifedipine 30 mg tablet,extended 30 mg PO DAILY 09/29/19 05/22/20 History release levothyroxine 100 mcg tablet 100 mcg PO DAILY #90 tablet 11/26/19 05/22/20 Rx omeprazole 20 mg capsule,delayed 20 mg PO BID #180 cap 11/26/19 05/22/20 Rx release calcium carbonate [Calcium 600] 2,400 mg PO HS 12/01/19 05/22/20 History cholecalciferol (vitamin D3) 5,000 unit PO HS 12/01/19 05/22/20 History [Vitamin D3] cyanocobalamin (vitamin B-12) 6,000 mcg PO DAILY 12/01/19 05/22/20 History [Vitamin B-12] metoprolol succinate 50 mg 50 mg PO DAILY #90 tablet 04/07/20 05/22/20 Rx tablet,extended release 24 hr L.acid,gas,rory,rham-B.ani-cran 5 500 mg PO DAILY 05/15/20 05/22/20 History billion cell-250mg capsule fluoxetine 20 mg PO DAILY 05/20/20 05/22/20 History magnesium 250 mg PO DAILY 05/20/20 05/22/20 History meclizine 25 mg PO PRN PRN 05/20/20 05/22/20 History pravastatin 10 mg PO HS 05/20/20 05/22/20 History Patient hx anesthesia problems: none Family hx anesthesia problems: none PMFSH Social History Social History (Reviewed 05/17/20 @ 11:29 by BROOKE Welch Social History: The patient is and lives with her in [place]. 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 No alcohol or drug abuse. She designates her as her surrogate decision maker and she wishes to be a full code. Smoking status: Never smoker Second hand tobacco smoke exposure: No Alcohol intake: never Substance use: never Substance use type: does not use Living arrangements: with family Gender identity (if verbalized by the patient): Female Spiritual care concerns: No Agree to blood products: Yes Anes - Eval Final PreProcedure Day of Procedure 05/21/20 12:40 Patient weight: normal Heart: regular rate and rhythm Lungs: clear to auscultation Airway: Mallampati scale class II Neurological: alert and oriented Last oral intake: >/= 8 hours ASA classification: III Emergent: no Anesthetic plan: proceed Anesthesia type and monitoring: general GIVS and standard monitoring Informed Consent: The patient's anesthetic plan and its attendant risks and benefits were discussed with the patient/family/POA. Questions were solicited and answers provided to the satisfaction of the patient/family/POA.
[2020-05-22 06:50] VITALS: BP 117/58; PULSE 55; RESP 16; TEMP 36.6; O2SAT 98
[2020-05-22] MEDS: LACTATED RINGERS 1,000 ML 30 ML IV CONT ×2 (07:04→10:10)
--- NOTE | 2020-05-22 07:15 | WPDHPUPDATE1 ---
History and Physical Update Update Date/Time: 05/22/20 07:15 History and Physical has been reviewed, including an updated exam of the patient. There are NO changes in the patient's condition. Risks, benefits, and alternatives have been discussed and questions answered. Patient agrees to proceed with procedure.
[2020-05-22] MEDS: LIDO 1%/EPINEPHRINE 1:100,000 20 ML VIAL INFILTRATE (07:54)
--- NOTE | 2020-05-22 08:14 | P.OP_ITS ---
Procedure Note - Detailed Date of procedure: 05/22/20 Pre-op diagnosis: Rt Temporal Headache Post-op diagnosis: same Procedure performed: Right temporal artery biopsy Description of procedure: * procedure as well as risks, benefits, and alternatives were discussed with the patient. Written consent was obtained and placed in chart prior to procedure. Patient was brought back to surgical suite. She was placed supine on operating table. Time-out was done to confirm patient and procedure. Sedation was administered by the Anesthesia Department. Her right protestant area was prepped and draped in sterile fashion using Betadine prep. Doppler was used to identify the right temporal artery. The location and course of the artery was marked on her skin. 1% lidocaine with epinephrine was infiltrated directly over this region. A 2 cm incision was then made using a 15 blade scalpel. Careful dissection was then carried out using electrocautery and tenotomy scissors. The temporal artery was identified and cleared for a segment of a couple cm. Three 0 Vicryl ties were then placed on the proximal and distal ends of the cleared artery. The ties were tied down in place and the vessel was then transected using scissors. The segment of the vessel was then removed and sent to the lab for pathology. The wound bed was then inspected. Hemostasis appeared adequate. No other abnormalities were noted. The skin edges were then reapproximated using 4-0 nylon simple interrupted sutures. Bacitracin ointment was then applied. The patient was then awakened from anesthesia and transferred recovery. Anesthesia: MAC and local ( 1% lidocaine with epinephrine) Surgeon: Hemant Cho DO Estimated blood loss (mL): 2 Pathology: yes Complications: No immediate complications Condition: stable Disposition: same day Findings: * right temporal artery biopsy was performed. A 2 cm segment of the vessel was isolated and sent for pathology. No other abnormalities were noted.
[2020-05-22 08:27] VITALS: BP 121/65; PULSE 70; RESP 16; O2SAT 95
[2020-05-22 08:45] VITALS: BP 121/65; PULSE 63; RESP 16; O2SAT 96
[2020-05-22 09:15] VITALS: BP 108/63; PULSE 62; RESP 16; TEMP 36.6
[2020-05-22 09:45] VITALS: BP 118/64; PULSE 51; RESP 16
[2020-05-22 10:10] VITALS: BP 119/59; PULSE 52; RESP 16
--- NOTE | 2020-05-22 12:36 | SUR.PHASEII ---
1000- pt placed hearing aids back in ears. cain notified that will be ready to go soon.
== END 2020-05-22 10:22 | disposition home or self-care (01) ==
PROVIDERS: PCP Family Medicine; Visit Provider Surgery
PROC: (CPT 37609; principal; 2020-05-22 07:30)
DX: R51 Headache (principal); I10 Essential (primary) hypertension; I48.0 Paroxysmal atrial fibrillation; E03.9 Hypothyroidism, unspecified; E78.2 Mixed hyperlipidemia; F32.9 Major depressive disorder, single episode, unspecified; K21.9 Gastro-esophageal reflux disease without esophagitis; F41.9 Anxiety disorder, unspecified; Z79.82 Long term (current) use of aspirin; Z79.899 Other long term (current) drug therapy
CPT/HCPCS: 37609; 88305; 88313; A9270; J2250; J2370; J2704; J3010; J7120

== ENCOUNTER 2020-12-27 12:44 | Outpatient (CLI) | payer MEDICARE, SELFPAY ==
--- NOTE | ~2020-12-27 | MR_ITS ---
EXAMINATION: MR brain/brain stem wo con EXAM DATE: 12/27/2020 13:47 INDICATION: Chronic intractable headache. TECHNIQUE: Magnetic resonance imaging (MRI) of the brain/brain stem obtained without contrast. Sagitt al T1, axial diffusion, gradient echo (T2*), T1, T2, FLAIR sequences obtained. There is no prior st udy for comparison. FINDINGS: There are no areas of restricted diffusion to suggest acute infarction. There is no acute hemorrhage seen on the T2*, a hemosiderin sensitive sequence. No intraparenchymal brain mass lesion. There is mild periventricular and subcortical T2/FLAIR signal hyperintensity, nonspecific but probab ly related to small vessel ischemic disease (microangiopathy). There are no extra-axial collections . Flow voids are seen in the cerebral arteries on the T2-weighted sequences consistent with their ex pected patency. Patient has had bilateral ocular lens surgery. Soft tissue is unremarkable. IMPRESSION: 1. No acute intracranial findings. 2. Chronic age related findings. Reviewed, dictated and finalized at location A.
== END 2020-12-27 12:45 | disposition home or self-care (01) ==
PROVIDERS: PCP Family Medicine
DX: R51.9 Headache, unspecified (principal); G89.29 Other chronic pain
CPT/HCPCS: 70551

== ENCOUNTER → 2021-03-12 11:30 | Outpatient (CLI) | payer MEDICARE, SELFPAY ==
--- NOTE | ~2021-03-12 | MM_ITS ---
EXAMINATION: MM screening [facility] BI w diogo HISTORY: Screening mammogram TECHNIQUE: Craniocaudal and mediolateral oblique 3-D tomosynthesis images were obtained and synthetic 2-D images were generated. CAD analysis was submitted and interpreted. COMPARISON: 10/06/2019, 08/15/2018, 06/30/2017 BREAST PARENCHYMAL COMPOSITION: There are scattered areas of fibroglandular density. FINDINGS: There is no evidence of suspicious mass, calcification, or architectural distortion to sugg est malignancy in either breast. There has been no suspicious interval change. IMPRESSION: 1. No mammographic evidence of malignancy. 2. Recommend routine screening mammography in one year. BI-RADS Category 1: Negative Reviewed, dictated and finalized at location A.
== END ==
PROVIDERS: PCP Family Medicine; Visit Provider Family Medicine
DX: Z12.31 Encounter for screening mammogram for malignant neoplasm of breast (principal)
CPT/HCPCS: 77063; 77067

== ENCOUNTER → 2021-08-13 02:34 | Outpatient (CLI) | payer MEDICARE, SELFPAY ==
[2021-08-13 18:47] LABS: SARS-CoV-2 RNA PCR Negative
== END ==
PROVIDERS: Nurse Practitioner Gerontology; PCP Family Medicine; Visit Provider Family Medicine
DX: R68.89 Other general symptoms and signs (principal); Z20.822 Contact with and (suspected) exposure to COVID-19
CPT/HCPCS: C9803; U0003; U0005

== ENCOUNTER 2022-01-02 09:41 | Outpatient (CLI) | payer MEDICARE, SELFPAY ==
--- NOTE | ~2022-01-02 | XR_ITS ---
EXAMINATION: XR hip RT 2V w AP pelvis EXAM DATE: 01/02/2022 09:55 INDICATION: M25.551 - Pain in right hip TECHNIQUE: Right hip frontal, 'frog leg' projections for interpretation. Frontal projection pelvis. Comparison is made to prior examination from 2005. FINDINGS: Smooth right hip femoral head contour, no radiographic evidence of avascular necrosis. The re is mild symmetric bilateral hip primary osteoarthritis. There is moderate lower lumbar disc disea se. There are no acute fractures or dislocations identified. There is no subcutaneous gas. The soft tissue is unremarkable. There are no radiopaque foreign bodies. IMPRESSION: Mild symmetric bilateral hip osteoarthritis. Reviewed, dictated and finalized at location A.
== END 2022-01-02 09:42 | disposition home or self-care (01) ==
LOC: ANHIMG 09:43
PROVIDERS: PCP Family Medicine; Visit Provider Family Medicine
DX: M16.0 Bilateral primary osteoarthritis of hip (principal); M53.3 Sacrococcygeal disorders, not elsewhere classified
CPT/HCPCS: 73502

== ENCOUNTER 2022-02-18 08:26 | Outpatient (CLI) | payer MEDICARE, SELFPAY ==
--- NOTE | ~2022-02-18 | NM_ITS ---
EXAMINATION: NM radha stress w perfusion DATE: 02/18/2022 11:15 INDICATION: Paroxysmal atrial fibrillation TECHNIQUE: Rest images were obtained following intravenous administration of 10.0 mCi Tc99m tetrofosm in (Myoview). The patient was infused intravenously with Lexiscan (Regadenoson). Then, 31.4 mCi Tc99m tetrofosmin (Myoview) was administered intravenously, and stress images were obtained in supine posi tion with additional post stress images obtained in prone position. Data was reconstructed into short axis and horizontal and vertical long axis SPECT images. Gated SPECT images were also obtained. COMPARISON: None. FINDINGS: There is no definite reversible or fixed perfusion abnormality to suggest ischemia or infar ction. There is normal left ventricular chamber size, wall motion and ejection fraction. Left ventr icular ejection fraction measures >70%. IMPRESSION: 1. Normal myocardial perfusion at rest and during stress. 2. Left ventricular ejection fraction measuring >70%. Reviewed, dictated and finalized at location [facility].
--- NOTE | 2022-02-18 08:56 | EST_ITS ---
Patient Info Name: Eugenia Chang Age: 71 years : 1950 Gender: Female Ht: 62 in Wt: 169 lbs BSA: 1.86 m2 HR: 58 bpm BP: 131 / 67 mmHg Heart Rhythm: Sinus Rhythm Exam Date: 02/18/2022 9:53 AM Exam Location: [facility] Stress Patient Status: Outpatient Admit Date: 02/18/2022 Staff Ordering Physician: Neo Flores DO Attending Provider: Neo Flores DO Exercise Technologist: Nela Salvador CT Exercise Physician: Neo Flores DO Exam Type: CA stress radha w NM Study Info Indications I48.0 - Paroxysmal atrial fibrillation A regadenoson stress test was performed. Summary 1. 1. Negative lexiscan stress test for ischemic ST changes by ECG criteria. 2. 2. Stable hemodynamics throughout the test. 3. 3. Nuclear scan to follow and will be reported separately. Please correlate with it. 4. 4. Patient informed of the above results. Protocol: Lexiscan Stress ECG Details Stage: REST Duration (min): 1 min : 10 sec HR (bpm): 58 SBP (mmHg): 131 DBP (mmHg): 67 Stage: REST Duration (min): 7 min : 13 sec HR (bpm): 58 SBP (mmHg): 131 DBP (mmHg): 67 Stage: STAGE 1 Duration (min): 0 min : 59 sec HR (bpm): 82 SBP (mmHg): 148 DBP (mmHg): 60 Stage: RECOVERY Duration (min): 1 min : 0 sec HR (bpm): 85 SBP (mmHg): 148 DBP (mmHg): 60 Stage: RECOVERY Duration (min): 2 min : 0 sec HR (bpm): 84 SBP (mmHg): 148 DBP (mmHg): 60 Stage: RECOVERY Duration (min): 3 min : 0 sec HR (bpm): 82 SBP (mmHg): 144 DBP (mmHg): 63 Stage: RECOVERY Duration (min): 3 min : 3 sec HR (bpm): 82 SBP (mmHg): 144 DBP (mmHg): 63 Rest HR: 58 bpm Peak HR: 88 bpm Rest Sys BP: 131 mmHg Peak Sys BP: 148 mmHg Max Pred HR: 150 bpm % Max Pred HR: 59 % Target HR: 128 bpm Max RPP: 13,024 bpm*mmHg Termination Reason: Completed protocol Cardiac Symptoms: Shortness of breath Total Time: 1 min : 0 sec Rest Remy BP: 67 mmHg Peak Remy BP: 60 mmHg Total Dose: 0.4 mg Resting ECG Sinus rhythm. Stress ECG No ST changes. Arrhythmias None. Report Signatures
== END 2022-02-18 08:27 | disposition home or self-care (01) ==
PROVIDERS: PCP Family Medicine; Visit Provider Internal Medicine Cardiovascular Disease
DX: I48.0 Paroxysmal atrial fibrillation (principal)
CPT/HCPCS: 78452; 93017; A9502; J2785

== ENCOUNTER → 2022-04-22 15:33 | Outpatient (CLI) | payer MEDICARE, SELFPAY ==
--- NOTE | ~2022-04-22 | MM_ITS ---
EXAMINATION: MM screening [facility] BI w diogo HISTORY: Screening mammogram TECHNIQUE: Craniocaudal and mediolateral oblique 3-D tomosynthesis images were obtained and synthetic 2-D images were generated. CAD analysis was submitted and interpreted. COMPARISON: 03/12/2021, 10/06/2019, 08/15/2018 bilateral screening mammogram examinations BREAST PARENCHYMAL COMPOSITION: FINDINGS: There is no evidence of suspicious mass, calcification, or architectural distortion to sugg est malignancy in either breast. There has been no suspicious interval change. IMPRESSION: 1. No mammographic evidence of malignancy. 2. Recommend routine screening mammography in one year. BI-RADS Category 1: Negative Reviewed, dictated and finalized at location A.
== END ==
PROVIDERS: PCP Family Medicine; Visit Provider Family Medicine
DX: Z12.31 Encounter for screening mammogram for malignant neoplasm of breast (principal)
CPT/HCPCS: 77063; 77067

== ENCOUNTER 2022-04-23 08:02 | Outpatient (CLI) | payer MEDICARE, SELFPAY ==
--- NOTE | 2022-05-26 10:33 | WPDHOMESLEEP ---
Sleep Study - Home Unattended Date of Study: 04/23/22 Ordering Provider: Neo Flores DO Interpreting Provider: Sandrine Hammer MD Home Sleep Study Type: Watch PAT Height: 1.57 m Weight: 79.379 kg Body Mass Index: 32.0 Neck Circumference (inches): 13 Wadley: 2 Reason for Sleep Study Insomnia Sleep History Eugenia Chang is a 72 year old female with insomnia. She has had problems with headaches on the right side of her head and episodes of dizziness. A temporal artery? biopsy was negative for arteritis. She has had difficulty sleeping for several months. Co-morbidities include hypertension and anxiety. [facility] Past Medical History Medical History (Updated 05/26/22 @ 10:43 by Sandrine Hammer MD) Anxiety Degenerative joint disease GERD (gastroesophageal reflux disease) History of rectal polyps Hypertension Hypothyroidism IBS (irritable bowel syndrome) MDD (major depressive disorder), recurrent episode, moderate Mixed hyperlipidemia Paroxysmal atrial fibrillation On metoprolol. She is not on long-term anticoagulation. Surgical History Surgical History History of biopsy of temporal artery 05/22/20 History of hysterectomy History of total left knee replacement With revision. Hx of appendectomy Hx of carpal tunnel repair Hx of cataract surgery Hx of cholecystectomy Hx of tubal ligation Previous back surgery S/P partial thyroidectomy For benign thyroid nodules. Family History Family History Mother Hypertension Uterine cancer High cholesterol Sibling PAD (peripheral artery disease) Hx of heart artery stent Father Family history of heart disease in male family member before age 55, Onset Age: 70 CHF (congestive heart failure) Sibling Hypertension High cholesterol Sibling Pancreatic cancer History of quadruple bypass CHF (congestive heart failure) Social History Social History Social History: The patient is and lives with her in [place]. 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 No alcohol or drug abuse. She designates her as her surrogate decision maker and she wishes to be a full code. Smoking status: Never smoker Second hand tobacco smoke exposure: No Alcohol intake: never Substance use: never Substance use type: does not use Gender identity (if verbalized by the patient): Female Sexual Orientation (if Verbalized by the Patient): Straight or Heterosexual Spiritual care concerns: No Agree to blood products: Yes Medications Home Medications Medication Instructions Recorded Confirmed Type multivitamin 1 tablet PO DAILY 09/29/19 05/21/22 History calcium carbonate 600 mg calcium 2,400 mg PO HS 12/01/19 05/21/22 History (1,500 mg) tablet (Calcium) cholecalciferol (vitamin D3) 125 5,000 unit PO HS 12/01/19 05/21/22 History mcg (5,000 unit) tablet (Vitamin D3) levothyroxine 100 mcg tablet 100 mcg PO DAILY #60 tabs 07/17/21 05/21/22 Rx pravastatin 10 mg tablet 10 mg PO HS #90 tabs 09/17/21 05/21/22 Rx apixaban 5 mg tablet (Eliquis) 5 mg PO BID #180 tabs 01/28/22 05/21/22 Rx metoprolol succinate 50 mg 25 mg PO DAILY #90 tabs 03/06/22 05/21/22 Rx tablet,extended release 24 hr eszopiclone 3 mg tablet (Lunesta) 3 mg PO QHS #30 tabs 03/13/22 05/21/22 Rx flecainide 50 mg tablet 50 mg PO Q12H #180 tabs 05/22/22 Rx Sleep Procedure The sleep study was completed using WatchPAT a technically adequate device with seven channels: peripheral arterial tone, actigraphy, body position, snore, respiratory movement, pulse oximetry, sleep staging, and heart rate. Prior to using the device, the patient received verbal and written instructions for its application and was provided with the
[2022-05-26 10:45] VITALS: BMI 32.0
== END 2022-04-24 13:12 | disposition home or self-care (01) ==
LOC: ANHCSM 08:34
PROVIDERS: PCP Family Medicine; Visit Provider Internal Medicine Cardiovascular Disease
DX: G47.10 Hypersomnia, unspecified (principal); G47.33 Obstructive sleep apnea (adult) (pediatric)
CPT/HCPCS: 95800

== ENCOUNTER 2022-06-04 13:40 | Outpatient (CLI) | payer MEDICARE, SELFPAY ==
--- NOTE | 2022-06-04 13:53 | ECHO_ITS ---
Patient Info Name: Eugenia Chang Age: 72 years : 1950 Gender: Female Ht: 62 in Wt: 170 lbs BSA: 1.87 m2 HR: 56 bpm BP: 146 / 88 mmHg Technical Quality: Fair Exam Date: 06/04/2022 2:20 PM Exam Location: [facility] Pulmonary Patient Status: Outpatient Admit Date: 06/04/2022 Staff Ordering Physician: Neo Flores DO Protozoologist: Rusty Candelario RDCS, RT Attending Provider: Neo Flores DO Referring Physician: Mark MOSELEY; Exam Type: CA echo doppler color flow Study Info Indications I51.89 - Other ill-defined heart diseases Complete two-dimensional, color flow and Doppler transthoracic echocardiogram is performed. Strain analysis performed. Summary 1. Complete two-dimensional, color flow and Doppler transthoracic echocardiogram is performed. 2. Left ventricular chamber dimension is normal. 3. Left ventricular systolic function is normal, estimated at 60-65%. 4. The left ventricular diastolic function is normal. 5. E/e' 9 is minimally elevated. 6. Global longitudinal strain is normal at -20.2%. 7. Left atrial chamber dimension is mildly enlarged. 8. No pulmonary hypertension, estimated pulmonary arterial systolic pressure is 29 mmHg. Left Ventricle E/e' 9 is minimally elevated. Global longitudinal strain is normal at -20.2%. Left ventricular chamber dimension is normal. Left ventricular systolic function is normal, estimated at 60-65%. The left ventricular diastolic function is normal. Right Ventricle Right ventricular systolic function is normal and with normal TAPSE 2.6 cm. Right ventricular chamber dimension is normal. Left Atria Left atrial chamber dimension is mildly enlarged. Right Atria Right atrial chamber dimension is normal. Aortic Valve The aortic valve is trileaflet. There is no aortic valve stenosis. There is no aortic valve regurgitation. Pulmonic Valve There is no pulmonic regurgitation. Mitral Valve There is no mitral valve stenosis. There is no mitral valve regurgitation. Tricuspid Valve There is no tricuspid valve regurgitation. No pulmonary hypertension, estimated pulmonary arterial systolic pressure is 29 mmHg. Pericardium/Pleural There is no pericardial effusion. Inferior Vena Cava Normal inferior vena cava with >50% collapse upon inspiration consistent with normal right atrial pressure, 5 mmHg. Aorta The aortic root size at the sinus of Valsalva is normal. Left Ventricular Outflow Tract Name Value Normal LVOT 2D LVOT Diameter 2.0 cm LVOT Doppler LVOT Peak Gradient 4 mmHg LVOT Mean Gradient 2 mmHg LVOT VTI 25 cm LVOT VTI/AV VTI Ratio 0.8 LVOT Stroke Volume 77 ml LVOT CO 3.7 l/min LVOT CI 2.0 l/min/m2 Mitral Valve Name Value Normal MV
== END 2022-06-04 13:41 | disposition home or self-care (01) ==
PROVIDERS: PCP Family Medicine; Visit Provider Internal Medicine Cardiovascular Disease
DX: I51.89 Other ill-defined heart diseases (principal)
CPT/HCPCS: 93306

== ENCOUNTER 2022-10-04 14:55 | Observation (INO) | payer MEDICARE, SELFPAY ==
[2022-10-04] VITALS (15 sets, daily range): BP systolic 111–201; BP diastolic 53–97; PULSE 52–96; RESP 11–27; TEMP 35.7–36.8; O2SAT 93–100; BMI 31.6
--- NOTE | ~2022-10-04 | XR_ITS ---
EXAMINATION: XR chest 1V Exam Date/Time: 10/04/2022 16:28 WILD ANIMAL CARETAKER HISTORY: Persistent headache, elevated bp. Hx htn, afib Comparison: 02/08/2018. RESULT: Lines, tubes, and devices: Cholecystectomy clips. Lungs and pleura: Mild diffuse reticular opacities. Cardiomediastinal silhouette: Stable. Other: No acute osseous or upper abdominal finding. IMPRESSION: Pulmonary opacities may reflect senescent change, mild interstitial edema, or respiratory bronchiolit is. Reviewed, dictated and finalized at location K. ANIMAL CARETAKER IMPRESSION: Pulmonary opacities may reflect senescent change, mild interstitial edema, or r espiratory bronchiolitis.
--- NOTE | ~2022-10-04 | CT_ITS ---
EXAMINATION: CTA brain carotid DATE: 10/04/2022 18:15 INDICATION: sudden rt temporal h/a TECHNIQUE: Computed tomographic angiography (CTA) of the head and neck was performed with 100 mL Omni paque-350 intravenous contrast. Automated exposure control and iterative reconstruction technique wer e employed. The dose-length product was 956.61 mGy-cm. Maximum intensity projection and volume render ed 3D-reconstructions were created by the technologist on a separate workstation. COMPARISON: CT brain, same date. FINDINGS: CT BRAIN: No acute large vessel infarct, intracranial hemorrhage, mass, or hydrocephalus. CTA HEAD: No large vessel occlusion, aneurysm, high flow vascular malformation, nidus or extravasation. CTA NECK: Aortic arch and proximal great vessels: Mild arch calcification. Right common carotid, carotid bifurcation, and internal carotid artery: Mild calcified plaque at the bifurcation.There is 0% stenosis of the proximal right internal carotid artery relative to normal dis lin artery lumen diameter (NASCET criteria). Left common carotid, carotid bifurcation, and internal carotid artery: Mild calcified plaque at the b ifurcation.There is 0% stenosis of the proximal left internal carotid artery relative to normal dista l artery lumen diameter (NASCET criteria). Vertebral arteries: No significant plaque or stenosis. Other findings: Heterogeneous left thyroid gland. Surgically absent right thyroid gland. Mosaic atten uation in the lungs. IMPRESSION: 1. No large vessel occlusion or severe carotid/vertebral stenosis. 2. Pulmonary opacities which can be seen with asthma, bronchiolitis obliterans, hypersensitivity pneu monitis, and chronic thromboembolic disease. Reviewed, dictated and finalized at location K. .NET ARCHITECT IMPRESSION: 1. No large vessel occlusion or severe carotid/vertebral stenosis. 2. Pulmonary opacities which can be seen with asthma, bronchiolitis obliterans, hypersensitivity pneumonitis, and chronic thromboembolic disease.
--- NOTE | ~2022-10-04 | CT_ITS ---
EXAMINATION: CT brain wo con DATE: 10/04/2022 16:41 INDICATION: Headache . TECHNIQUE: Computed tomography (CT) of the head was performed without intravenous contrast. The mA wa s adjusted according to patient size. Iterative reconstruction technique was employed. The dose-lengt h product was 605.33 mGy-cm. COMPARISON: 05/01/2020. FINDINGS: No acute intracranial hemorrhage or extra-axial fluid collection. No hydrocephalus, mass, or herniation. No acute ischemic infarct. Unremarkable dural venous sinus attenuation. No acute osseous abnormality. The aerated spaces are clear. Mild atrophy and moderate chronic white matter change. Atherosclerotic intracranial calcification. Bi lateral lens replacements. IMPRESSION: No acute intracranial process. Reviewed, dictated and finalized at location K. L WORKER
--- NOTE | ~2022-10-04 | MR_ITS ---
EXAMINATION: MR brain/brain stem wo/w con DATE: 10/05/2022 10:47 INDICATION: Headache. TECHNIQUE: Magnetic resonance imaging (MRI) of the brain and brainstem was performed without and with 15 mL MultiHance intravenous contrast. COMPARISON: Brain MRI 12/27/2020, head CT 10/04/2022 FINDINGS: There are scattered areas of nonspecific increased T2-weighted signal intensity in the cere bral white matter and dana. There is no intracranial hemorrhage, acute infarction, or abnormal intrac ranial mass lesion. The ventricles are normal in size. The paranasal sinuses are clear. There are lik kelly changes of ocular lens replacement surgeries. The mastoid air cells are normal. IMPRESSION: 1. Mild nonspecific cerebral white matter disease and pontine disease, which likely represents chroni c small vessel ischemic disease, worsened from 12/27/2020. Reviewed, dictated and finalized at location A. UCT ANALYST IMPRESSION: 1. Mild nonspecific cerebral white matter disease and pontine disease, which renuka hernandez represents chronic small vessel ischemic disease, worsened from 12/27/2020.
--- NOTE | 2022-10-04 15:31 | ED.HA ---
HPI - Headache General Chief Complaint: Headache Stated Complaint: headache x1 day, elevated BP Time Seen by Provider: 10/04/22 15:30 History of Present Illness HPI Narrative: 72 years old white female presents with sudden onset of right-sided headache while bending over at work out yesterday Nothing different about her workout yesterday compared to the past. Patient explaining her pain like she got hit by something at the right side of her head. Constant, 9 out of 10, not improving on Tylenol. Patient had similar symptoms years ago and went through a lot of tests including temporal artery biopsy with negative results the headache at that time lasted for few months and resolve spontaneously, no significant diagnosis was done at that time. Patient reports that headache associated with nausea since yesterday. Patient denies focal neurodeficit. Fever, chills, vomiting. Last right-sided headache was 2 months ago. But this 1 is different. Patient had stronger headache than today this headache is not the worst ever. History of atrial fibrillation, hypertension, hypothyroidism. Patient does not smoke or drink or uses drugs. Patient drove to the emergency room by her . Related Data Home Medications Medication Instructions Recorded Confirmed multivitamin 1 tablet PO DAILY 09/29/19 08/27/22 calcium carbonate 600 mg calcium 2,400 mg PO HS 12/01/19 08/27/22 (1,500 mg) tablet (Calcium) cholecalciferol (vitamin D3) 125 5,000 unit PO HS 12/01/19 08/27/22 mcg (5,000 unit) tablet (Vitamin D3) Allergies Allergy/AdvReac Type Severity Reaction Status Date / Time alendronate sodium Allergy Unknown Hives Verified 10/04/22 15:40 nortriptyline AdvReac Severe Nightmare Verified 10/04/22 15:40 lisinopril AdvReac Mild dizzy Verified 10/04/22 15:40 Review of Systems Review of Systems: All systems reviewed & are unremarkable except as noted in HPI and below PMFSH Past Medical History Medical History Anxiety Degenerative joint disease GERD (gastroesophageal reflux disease) History of rectal polyps Hypertension Hypothyroidism IBS (irritable bowel syndrome) MDD (major depressive disorder), recurrent episode, moderate Mixed hyperlipidemia Paroxysmal atrial fibrillation On metoprolol. She is not on long-term anticoagulation. Surgical History Surgical History History of biopsy of temporal artery 05/22/20 History of hysterectomy History of total left knee replacement With revision. Hx of appendectomy Hx of carpal tunnel repair Hx of cataract surgery Hx of cholecystectomy Hx of tubal ligation Previous back surgery S/P partial thyroidectomy For benign thyroid nodules. Family History Family History Mother Hypertension Uterine cancer High cholesterol Sibling PAD (peripheral artery disease) Hx of heart artery stent Father Family history of heart disease in male family member before age 55, Onset Age: 70 CHF (congestive heart failure) Sibling Hypertension High cholesterol Sibling Pancreatic cancer History of quadruple bypass CHF (congestive heart failure) Social History Social History Social History: The patient is and lives with her in [place]. 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 No alcohol or drug abuse. She designates her as her surrogate decision maker and she wishes to be a full code. Smoking status: Never smoker Second hand tobacco smoke exposure: No Alcohol intake: never Substance use: never Substance use type: does not use Lack of Transportation: No Lack of Food: Never True Current Housing: I Have Housing Concerned About Future Housing: No Difficulty
--- NOTE | 2022-10-04 16:00 | ECG_ITS ---
Measurements Intervals [place] Rate: 76 P: 56 NH: 220 QRS: 30 QRSD: 106 T: 63 QT: 333 QTc: 375 Interpretive Statements SINUS RHYTHM WITH FIRST DEGREE AV BLOCK BASELINE ARTIFACT- I, II, III, AVR, AVL, AVF BORDERLINE ECG COMPARED TO ECG 12/01/2019 12:00:39 SINUS RHYTHM NOW PRESENT FIRST DEGREE AV BLOCK NOW PRESENT Electronically Signed On 10-04-2022 20:44:12 OPERATIONAL REVIEW SERGEANT by Neo Flores D.O.
[2022-10-04] MEDS: MORPHINE SULFATE (*CRX) 4 MG/ML INJ IV PUSH (16:27)
[2022-10-04] MEDS: ONDANSETRON INJ 4 MG/2 ML VIAL IV PUSH ×2 (16:27→20:26)
[2022-10-04 16:32] LABS: Add Urine Microscopic? YES; Appearance Urine Clear (Clear); Basophils Percent Auto 0.7 % (0.2-1.2); Bilirubin Urine Negative (Negative); Blood Urine Negative (Negative); Color Urine Yellow (Yellow); Eosinophils Absolute Auto 0.2 K/mm3 (0-0.3); Eosinophils Percent Auto 4.2 % (0-4.4); Glucose Urine UA Negative (Negative); Hematocrit 38.5 % (37.0-47.0); Hemoglobin 12.5 g/dL (12.0-15.0); Immature Granulocyte Absolute 0.01 K/mm3 (0.00-0.031); Immature Granulocyte Percent A 0.2 % (0-0.5); Ketones Urine Negative (Negative); Leukocyte Esterase Ur Trace LEU/UL (Negative); Lymphocytes Absolute Auto 1.67 K/mm3 (0.9-3.2); Lymphocytes Percent Auto 29.4 % (18.3-44.2); Mean Corpuscular HGB Conc 32.5 g/dl (32-36); Mean Corpuscular Hemoglobin 30.7 pg (26-34); Mean Corpuscular Volume 94.6 fl (80-100); Mean Platelet Volume 9.6 fl (7.4-10.4); Monocytes Absolute Auto 0.5 K/mm3 (0.1-0.6); Monocytes Percent Auto 9.5 % (2.6-8.5); Neutrophils Absolute Auto 3.2 K/mm3 (1.3-6.7); Nitrate Urine Negative (Negative); Platelet Count Result 375 k/mm3 (150-375); Protein Urine Negative (Negative); Red Blood Count 4.07 M/mm3 (4.2-5.4); Red Cell Distribution Width 12.9 % (11.5-14.5); Urobilinogen Urine 0.2 mg/dL (<2.0); White Blood Count 5.7 K/mm3 (4.5-10.0); pH Urine 7.5 (5.0-9.0)
[2022-10-04 16:36] LABS: RBC Urine 0-2 /hpf (0-2); Squamous Epithelial Cell Urine Occasional /hpf (Few)
[2022-10-04 16:41] LABS: Alanine Aminotransferase 21 U/L (6-35); Albumin Level 4.2 g/dL (3.5-5.1); Alkaline Phosphatase 71 U/L (38-126); Anion Gap 8 mmol/L (8-16); Aspartate Amino Transferase 26 U/L (14-36); Bilirubin,Total 0.2 mg/dL (0.2-1.3); Blood Urea Nitrogen 13 mg/dL (7-17); Calcium 8.7 mg/dL (8.4-10.2); Carbon Dioxide 30 mmol/L (22-30); Chloride 100 mmol/L (98-107); Estimated CRCL calculation 40 ml/min; Estimated Glomerular Filt Rate 49; Glucose 93 mg/dL (65-110); Potassium 3.4 mmol/L (3.4-5.0); Sodium 138 mmol/L (137-145)
[2022-10-04 16:45] LABS: INR 1.1; Prothrombin Time 14.2 Seconds (11.1-14.7)
[2022-10-04 16:46] LABS: Partial Thromboplastin Time 41.7 SECONDS (22.3-36.8)
[2022-10-04 16:52] LABS: Troponin I < 0.012 ng/mL (0.000-0.034)
[2022-10-04 17:01] LABS: Erythrocyte Sedimentation Rate 31 mm/hr (0-20)
[2022-10-04] MEDS: HYDROmorphone HCL INJ (*CRX) 1 MG/ML SYR 0.5 MG IV PUSH (17:50)
[2022-10-04] MEDS: hydrALAZINE HCL 20 MG/ML VIAL IV PUSH ×2 (18:43→19:26)
[2022-10-04] MEDS: SODIUM CHLORIDE 0.9% IV 1,000 ML 999 ML IV CONT ×2 (18:48→19:52)
[2022-10-04] MEDS: SODIUM CHLORIDE 0.9% IV 1,000 ML 125 ML IV CONT (19:26)
[2022-10-04 19:43] LABS: Influenza A QL RT-PCR Negative (Negative); Influenza B QL RT-PCR Negative (Negative); RSV RNA, RT-PCR Negative (Negative); SARS-CoV-2 RNA PCR Negative
--- NOTE | 2022-10-04 23:16 | PC.NURSE ---
This patient, Eugenia Chang, was admitted to Medical Room 344-01. Patient/family oriented to hospital policies and general routines including ID bracelet, bed and alarms, visiting hours, pain management, procedures, bathroom and other care routines, personal items, smoking policy, room service/diet, and visiting hours. Information on how to activate the Rapid Response Team has been discussed. Patient/Family are encouraged to report perceived risks to care and to ask questions if they do not understand what they are told or what they should do.
[2022-10-05] VITALS (9 sets, daily range): BP systolic 147–163; BP diastolic 55–63; PULSE 53–75; RESP 16–20; TEMP 36.4–36.8; O2SAT 95–98
[2022-10-05] MEDS: ACETAMINOPHEN 325 MG TABLET 650 MG PO ×2 (02:12→07:42)
[2022-10-05] MEDS: ONDANSETRON INJ 4 MG/2 ML VIAL IV PUSH ×2 (02:13→13:06)
[2022-10-05 09:27] LABS: Basophils Percent Auto 0.3 % (0.2-1.2); Eosinophils Absolute Auto 0.1 K/mm3 (0-0.3); Eosinophils Percent Auto 0.7 % (0-4.4); Hematocrit 36.2 % (37.0-47.0); Hemoglobin 11.7 g/dL (12.0-15.0); Immature Granulocyte Absolute 0.02 K/mm3 (0.00-0.031); Immature Granulocyte Percent A 0.3 % (0-0.5); Lymphocytes Absolute Auto 1.25 K/mm3 (0.9-3.2); Lymphocytes Percent Auto 17.8 % (18.3-44.2); Mean Corpuscular HGB Conc 32.3 g/dl (32-36); Mean Corpuscular Hemoglobin 30.8 pg (26-34); Mean Corpuscular Volume 95.3 fl (80-100); Mean Platelet Volume 9.6 fl (7.4-10.4); Monocytes Absolute Auto 0.5 K/mm3 (0.1-0.6); Monocytes Percent Auto 7.4 % (2.6-8.5); Neutrophils Absolute Auto 5.2 K/mm3 (1.3-6.7); Neutrophils Percent Auto 73.5 % (45.5-73.1); Platelet Count Result 360 k/mm3 (150-375); Red Cell Distribution Width 13.3 % (11.5-14.5)
[2022-10-05 09:37] LABS: Alanine Aminotransferase 19 U/L (6-35); Albumin Level 3.8 g/dL (3.5-5.1); Alkaline Phosphatase 65 U/L (38-126); Anion Gap 4 mmol/L (8-16); Aspartate Amino Transferase 24 U/L (14-36); Bilirubin,Total 0.5 mg/dL (0.2-1.3); Blood Urea Nitrogen 9 mg/dL (7-17); Carbon Dioxide 25 mmol/L (22-30); Chloride 103 mmol/L (98-107); Estimated CRCL calculation 71 ml/min; Estimated Glomerular Filt Rate > 60; Glucose 93 mg/dL (65-110); Magnesium 1.6 mg/dL (1.6-2.3); Potassium 3.2 mmol/L (3.4-5.0); Sodium 132 mmol/L (137-145)
[2022-10-05] MEDS: amLODIPine BESYLATE 5 MG TABLET 10 MG PO (09:56)
[2022-10-05] MEDS: hydroCHLOROthiazide 25 MG TABLET PO (09:57)
[2022-10-05] MEDS: METOPROLOL SUCCINATE EXT REL 50 MG TABCR PO (09:57)
[2022-10-05] MEDS: LEVOTHYROXINE SODIUM 100 MCG TABLET PO (09:57)
[2022-10-05] MEDS: oxyCODONE/ACETAMINOPHEN (*CRX) 5-325 MG TABLET 1 TABLET PO ×2 (10:00→17:41)
--- NOTE | 2022-10-05 11:57 | WPDNEURCNPN ---
Assessment and Plan Assessment and plan (1) Headache: Code(s): R51.9 - Headache, unspecified Status: Acute Plan Complains of headache with evaluation in the past for the temporal arteritis and biopsy negative, CTA is normal and so as the MRI of the brain will treat her symptom medically Consult date: 10/05/22 HPI: Eugenia Chang is a 72 year old female admitted to the hospital through the emergency room for the complaints of headache of 24 hours duration in addition to the history of hypertension. Patient reportedly developed the headache while bending over at work and felt as if she was hit by something on the right side of her head she complained of constant headache 9/10 pain level without improvement for patient has had the similar symptoms about a year ago when she underwent complete investigations which included the temporal artery biopsy as well and the headache lasted for several months then resolved spontaneously this time the headache is associated with the nausea but there is no neurological deficit or any other generalized symptomatology she has been taking only supplemental vitamins and calcium. She does have ongoing history of hypertension, hypothyroidism, irritable bowel syndrome, and major depressive disorder recurrent in addition to the paroxysmal atrial fibrillation for which she is on metoprolol and as mentioned reports she has undergone the temporal artery biopsy in the past on May 22, 2020, she has never a smoker never a drinker and her initial exam was nonfocal with normal vital sign normal CBC normal BMP normal UA and negative for influenza A Ambien RSV and stars COVID Review of Systems Review of Systems: All systems reviewed & are unremarkable except as noted in HPI and below PMFSH Past Medical History Medical History Anxiety Degenerative joint disease GERD (gastroesophageal reflux disease) History of rectal polyps Hypertension Hypothyroidism IBS (irritable bowel syndrome) MDD (major depressive disorder), recurrent episode, moderate Mixed hyperlipidemia Paroxysmal atrial fibrillation On metoprolol. She is not on long-term anticoagulation. Surgical History Surgical History History of biopsy of temporal artery 05/22/20 History of hysterectomy History of total left knee replacement With revision. Hx of appendectomy Hx of carpal tunnel repair Hx of cataract surgery Hx of cholecystectomy Hx of tubal ligation Previous back surgery S/P partial thyroidectomy For benign thyroid nodules. Family History Family History Mother Hypertension Uterine cancer High cholesterol Sibling PAD (peripheral artery disease) Hx of heart artery stent Father Family history of heart disease in male family member before age 55, Onset Age: 70 CHF (congestive heart failure) Sibling Hypertension High cholesterol Sibling Pancreatic cancer History of quadruple bypass CHF (congestive heart failure) Social History Social History Social History: The patient is and lives with her in [place]. 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 She smoked remotely in her teens. No alcohol or drug abuse. She designates her as her surrogate decision maker and she wishes to be a full code. Smoking status: Never smoker Second hand tobacco smoke exposure: No Alcohol intake: never Substance use: never Substance use type: does not use Lack of Transportation: No Lack of Food: Never True Current Housing: I Have Housing Concerned About Future Housing: Decline to Answer Difficulty Paying Gas/Electric Bills: Decline to Answer Difficulty Paying for Meds: Decline to Answer Currently Unemployed: Decline to Answer
--- NOTE | 2022-10-05 12:36 | PM.IMHP ---
H&P: HPI History of Present Illness Date/Time: 10/05/22 12:36 Chief Complaint: Headache Narrative: 72 years old F with PMH of HTN presented with headache. According to her it started on wednesday, she was working out, she bend over when she developed severe headache on riggh temporal side. this has been associated with nausea and few episodes of vomiting.Denies any visual symptoms, redness of eye, trauma to frontal/temporal region. Denies fever, chills, Upper reps symptoms. Presented to ER, BP was significantly elevated. ?Patient had similar symptoms years ago and went through a lot of tests including temporal artery biopsy with negative results the headache at that time lasted for few months and resolve spontaneously, no significant diagnosis was done at that time.? Review of Systems Review of Systems: All systems reviewed & are unremarkable except as noted in HPI and below Constitutional: Constitutional: Reports no additional constitutional complaints Eyes: Eyes: Reports no additional eye complaints ENT: Reports system reviewed and no additional complaints, except as documented Cardiovascular: Cardiovascular: Reports no additional cardiovascular complaints Respiratory: Respiratory: Reports no additional respiratory complaints Gastrointestinal: Gastrointestinal: Reports no additional gastrointestinal complaints Genitourinary: Genitourinary: Reports no additional female genitourinary complaints Musculoskeletal: Musculoskeletal: Reports no additional musculoskeletal complaints Neurologic: Reports headache(s) Psychiatric: Psychiatric: Reports no additional psychiatric complaints [facility] Past Medical History Medical History (Updated 10/05/22 @ 12:42 by Adriana Coy MD) Anxiety Degenerative joint disease GERD (gastroesophageal reflux disease) History of rectal polyps Hypertension Hypothyroidism IBS (irritable bowel syndrome) MDD (major depressive disorder), recurrent episode, moderate Mixed hyperlipidemia Paroxysmal atrial fibrillation On metoprolol. She is not on long-term anticoagulation. Surgical History Surgical History History of biopsy of temporal artery 05/22/20 History of hysterectomy History of total left knee replacement With revision. Hx of appendectomy Hx of carpal tunnel repair Hx of cataract surgery Hx of cholecystectomy Hx of tubal ligation Previous back surgery S/P partial thyroidectomy For benign thyroid nodules. Family History Family History Mother Hypertension Uterine cancer High cholesterol Sibling PAD (peripheral artery disease) Hx of heart artery stent Father Family history of heart disease in male family member before age 55, Onset Age: 70 CHF (congestive heart failure) Sibling Hypertension High cholesterol Sibling Pancreatic cancer History of quadruple bypass CHF (congestive heart failure) Social History Social History Social History: The patient is and lives with her in [place]. 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 No alcohol or drug abuse. She designates her as her surrogate decision maker and she wishes to be a full code. Smoking status: Never smoker Second hand tobacco smoke exposure: No Alcohol intake: never Substance use: never Substance use type: does not use Lack of Transportation: No Lack of Food: Never True Current Housing: I Have Housing Concerned About Future Housing: Decline to Answer Difficulty Paying Gas/Electric Bills: Decline to Answer Difficulty Paying for Meds: Decline to Answer Currently Unemployed: Decline to Answer Education: Decline to Answer Difficulty w/ Childcare or Family Care: No Gender identity (if verbalized by the patient): Fem
[2022-10-05] MEDS: SUMAtriptan SUCCINATE 6 MG/0.5 ML VIAL SUB-Q (12:48)
[2022-10-05] MEDS: MAGNESIUM SULF 2 GM/WATER 50ML 2 GM/50 ML BAG IVPB (12:51)
[2022-10-05] MEDS: FLECAINIDE ACETATE 50 MG TABLET PO (13:02)
[2022-10-05] MEDS: POTASSIUM CHLORIDE 20 MEQ TABLET.ER 40 MEQ PO ×2 (13:04→17:39)
[2022-10-05] MEDS: CALCIUM CARBONATE (OSCAL) 500 MG TABLET 2000 MG PO (21:05)
[2022-10-05] MEDS: APIXABAN 5 MG TABLET PO (21:05)
[2022-10-05] MEDS: CHOLECALCIFEROL 1,000 UNITS TABLET 5000 UNITS PO (21:05)
[2022-10-06] VITALS (8 sets, daily range): BP systolic 131–164; BP diastolic 58–85; PULSE 55–90; RESP 16–18; TEMP 36.4–36.6; O2SAT 93–100
[2022-10-06] MEDS: oxyCODONE/ACETAMINOPHEN (*CRX) 5-325 MG TABLET 1 TABLET PO ×3 (01:03→20:00)
[2022-10-06] MEDS: FLECAINIDE ACETATE 50 MG TABLET PO ×3 (01:06→20:01)
[2022-10-06] MEDS: LEVOTHYROXINE SODIUM 100 MCG TABLET PO (05:23)
[2022-10-06 05:52] LABS: Basophils Absolute Auto 0.1 K/mm3 (0.0-0.1); Eosinophils Absolute Auto 0.2 K/mm3 (0-0.3); Hematocrit 35.3 % (37.0-47.0); Hemoglobin 11.5 g/dL (12.0-15.0); Immature Granulocyte Absolute 0.01 K/mm3 (0.00-0.031); Immature Granulocyte Percent A 0.2 % (0-0.5); Lymphocytes Absolute Auto 2.17 K/mm3 (0.9-3.2); Lymphocytes Percent Auto 41.6 % (18.3-44.2); Mean Corpuscular HGB Conc 32.6 g/dl (32-36); Mean Corpuscular Hemoglobin 30.1 pg (26-34); Mean Corpuscular Volume 92.4 fl (80-100); Mean Platelet Volume 9.7 fl (7.4-10.4); Monocytes Absolute Auto 0.5 K/mm3 (0.1-0.6); Monocytes Percent Auto 9.8 % (2.6-8.5); Neutrophils Absolute Auto 2.3 K/mm3 (1.3-6.7); Neutrophils Percent Auto 43.4 % (45.5-73.1); Platelet Count Result 347 k/mm3 (150-375); Red Blood Count 3.82 M/mm3 (4.2-5.4); Red Cell Distribution Width 13.3 % (11.5-14.5); White Blood Count 5.2 K/mm3 (4.5-10.0)
[2022-10-06 05:56] LABS: Anion Gap 7 mmol/L (8-16); Blood Urea Nitrogen 7 mg/dL (7-17); Calcium 8.9 mg/dL (8.4-10.2); Carbon Dioxide 26 mmol/L (22-30); Chloride 106 mmol/L (98-107); Estimated CRCL calculation 62 ml/min; Estimated Glomerular Filt Rate > 60; Glucose 81 mg/dL (65-110); Magnesium 1.8 mg/dL (1.6-2.3); Potassium 3.9 mmol/L (3.4-5.0); Sodium 139 mmol/L (137-145)
[2022-10-06] MEDS: amLODIPine BESYLATE 5 MG TABLET 10 MG PO (09:26)
[2022-10-06] MEDS: hydroCHLOROthiazide 25 MG TABLET PO (09:27)
[2022-10-06] MEDS: APIXABAN 5 MG TABLET PO ×2 (09:27→20:01)
[2022-10-06] MEDS: MULTIVITS W-FE,MIN CHEWABLE TABLET 1 TABLET PO (11:32)
--- NOTE | 2022-10-06 13:20 | PM.IMPN ---
Progress Note: A&P Assessment and Plan (1) Headache: Code(s): R51.9 - Headache, unspecified Status: Acute (2) Hypertension, uncontrolled: Code(s): I10 - Essential (primary) hypertension Status: Acute (3) SCAR (acute kidney injury): Code(s): N17.9 - Acute kidney failure, unspecified Status: Acute (4) UTI (urinary tract infection): Code(s): N39.0 - Urinary tract infection, site not specified Status: Acute Plan 1)headache: Acute onset MRI brain unremarkable Pain control with percocet Sumatriptan did not help Add gabapentin 2)HTN:BP uncontrolled Can be exacerbating headache Bp is 150/50 Add Norvasc, HCTZ Add PRN IV hydralazine 3)Afibb: resume eliquis, Flecainide 4)?UTI:UA s/o UTI follow UC Start on IV ceftriaxone 5)SCAR: Creat is nl now 6)DVT ppx:On Eliquis 7)Code:Full Subjective Date/time seen: 10/06/22 13:20 72 years old F with PMH of HTN presented with? headache. According to her it started on wednesday, she was working out, she bend over when she developed severe headache on riggh temporal side. this has been associated with nausea and few episodes of vomiting. Pt states percocet is not helping having severe bang like headache worse on the R temporal area. Sumatriptan yesterday did not help her. Awaiting to see neurology. Offered tylenol and ibuprofenpt does not want these. Review of Systems Review of Systems: Sever headaches All systems reviewed & are unremarkable except as noted in HPI and below Exam Const: General: comfortable Resp: Effort & Inspection: normal respiratory effort Auscultation: clear to auscultation bilaterally Cardio: Rate: regular rate Rhythm: regular rhythm GI: Auscultation: normal bowel sounds Neuro: Cranial nerves: Yes Equal, round and reactive pupils present Speech: normal speech Motor exam (neuro): 5/5 motor strength present throughout Extrem: General: normal to inspection Psych: Mental Status: mental status grossly normal Objective Data Vital Signs Vital Signs: Vital Signs - 24 hr 10/05/22 17:31 10/05/22 19:33 10/05/22 20:00 Temperature 36.6 C 36.8 C Pulse Rate 53 L 56 L Respiratory Rate 16 20 Blood Pressure 150/58 H 147/55 H Pulse Oximetry 97 97 96 Oxygen Delivery Room Air 10/06/22 00:00 10/06/22 01:06 10/06/22 05:07 Temperature 36.6 C 36.4 C Pulse Rate 57 L 90 58 L Respiratory Rate 18 16 Blood Pressure 150/58 H 151/61 H Pulse Oximetry 93 97 Oxygen Delivery 10/06/22 09:26 10/06/22 08:00 Temperature Pulse Rate 55 L Respiratory Rate Blood Pressure Pulse Oximetry Oxygen Delivery Room Air Intake/Output Intake/Output: Intake & Output 10/03/22 10/04/22 10/05/22 10/06/22 23:59 23:59 23:59 23:59 Intake Total 3000 1270 790 Output Total 3250 1100 Balance 3000 1980 310 Meds/Results Medications: Active Medications Generic Name Dose Route Start Last Admin Trade Name Freq PRN Reason Stop Dose Admin Acetaminophen 650 mg 10/04/22 18:52 10/05/22 07:42 Acetaminophen 325 Mg Tablet PO 650 mg Q4H PRN Administration Mild Pain (1-3) or Fever Amlodipine Besylate 10 mg 10/05/22 09:00 10/06/22 09:26 Amlodipine Besylate 5 Mg Tablet PO 10 mg QAM MORIAH Administration Apixaban 5 mg 10/05/22 21:00 10/06/22 09:27 Apixaban 5 Mg Tablet PO 5 mg Q12HR MORIAH Administration Calcium Carbonate 2,000 mg 10/05/22 21:00 10/05/22 21:05 Calcium Carbonate (Oscal) 500 Mg Tablet PO 11/04/22 20:59 2,000 mg HS MORIAH Administration Clorazepate Dipotassium 3.75 mg 10/06/22 09:00 Clorazepate Dipotassium (*Crx) 3.75 Mg Tablet PO Q12HR MORIAH Flecainide Acetate 50 mg 10/05/22 13:00 10/06/22 09:26 Flecainide Acetate 50 Mg Tablet PO 50 mg Q12HR MORIAH Administration Hydralazine HCl 10 mg 10/05/22 12:47 Hydralazine Hcl 20 Mg/Ml Vial IV PUSH Q8H PRN Blood Pressure - High Hydrochlorothiazide
[2022-10-06] MEDS: CLORAZEPATE DIPOTASSIUM (*CRX) 3.75 MG TABLET PO ×2 (14:52→23:22)
[2022-10-06] MEDS: GABAPENTIN 300 MG CAPSULE PO (17:22)
[2022-10-06] MEDS: PRAVASTATIN SODIUM 10 MG TABLET PO (20:00)
[2022-10-06] MEDS: CHOLECALCIFEROL 1,000 UNITS TABLET 5000 UNITS PO (20:00)
[2022-10-06] MEDS: CALCIUM CARBONATE (OSCAL) 500 MG TABLET 2000 MG PO (20:00)
[2022-10-07] VITALS (8 sets, daily range): BP systolic 120–143; BP diastolic 64–74; PULSE 63–87; RESP 14–18; TEMP 36.2–36.5; O2SAT 95–99
[2022-10-07] MEDS: oxyCODONE/ACETAMINOPHEN (*CRX) 5-325 MG TABLET 1 TABLET PO (05:05)
[2022-10-07] MEDS: LEVOTHYROXINE SODIUM 100 MCG TABLET PO (05:05)
[2022-10-07] MEDS: CLORAZEPATE DIPOTASSIUM (*CRX) 3.75 MG TABLET PO (09:09)
[2022-10-07] MEDS: amLODIPine BESYLATE 5 MG TABLET 10 MG PO (09:09)
[2022-10-07] MEDS: FLECAINIDE ACETATE 50 MG TABLET PO ×2 (09:09→20:34)
[2022-10-07] MEDS: GABAPENTIN 300 MG CAPSULE PO ×2 (09:10→12:04)
[2022-10-07] MEDS: hydroCHLOROthiazide 25 MG TABLET PO (09:10)
[2022-10-07] MEDS: APIXABAN 5 MG TABLET PO ×2 (09:10→20:34)
[2022-10-07] MEDS: MULTIVITS W-FE,MIN CHEWABLE TABLET 1 TABLET PO (12:04)
--- NOTE | 2022-10-07 12:11 | WPDNEUROPN ---
Subjective Date/time seen: 10/07/22 12:11 Interval history: follow-up for the complaints of headaches in addition to the anxiety and history of temporal arteritis and biopsy negative in the past CTA normal and so as the MRI of the brain subsequent to the evaluation yesterday after thorough discussion she was started on clorazepate 3.75 mg q.12 hours and she reported significant improvement in her symptomatology she has not taken any Percocet since morning was advised to continue this medication also discussed with the nurse and hopefully she can be discharged tomorrow she has also been taking gabapentin 300 mg 3 times a day that can be continued as such addition to her apixaban 5 mg q.12 hours Review of Systems Review of Systems: All systems reviewed & are unremarkable except as noted in HPI and below Exam Narrative: remains awake alert cooperative in no obvious acute distress during the interview and discussion with the she became tearful was assured and advised to continue the medication as such her speech was not dysphasic not dysarthric not dysphonic she was able to follow verbal commands appropriately Aaron neurological examination was nonfocal Objective Data Vital Signs Vital Signs: Vital Signs - 24 hr 10/06/22 19:54 10/06/22 20:00 10/06/22 23:10 Temperature 36.6 C Pulse Rate 63 63 68 Respiratory Rate 16 16 18 Blood Pressure 131/58 L 143/85 H Pulse Oximetry 98 98 100 Oxygen Delivery Room Air Room Air 10/07/22 00:20 10/07/22 04:40 10/07/22 04:57 Temperature 36.2 C L Pulse Rate 67 64 63 Respiratory Rate 14 18 Blood Pressure 143/64 H Pulse Oximetry 95 96 98 Oxygen Delivery Autopap Autopap 10/07/22 09:09 10/07/22 08:00 Temperature Pulse Rate 78 Respiratory Rate Blood Pressure Pulse Oximetry Oxygen Delivery Autopap Intake/Output Intake/Output: Intake & Output 10/04/22 10/05/22 10/06/22 10/07/22 23:59 23:59 23:59 23:59 Intake Total 3000 1270 1550 620 Output Total 3250 3500 900 Balance 3000 -1980 -1950 -280 Meds/Results Medications: Active Medications Generic Name Dose Route Start Last Admin Trade Name Freq PRN Reason Stop Dose Admin Acetaminophen 650 mg 10/04/22 18:52 10/05/22 07:42 Acetaminophen 325 Mg Tablet PO 650 mg Q4H PRN Administration Mild Pain (1-3) or Fever Amlodipine Besylate 10 mg 10/05/22 09:00 10/07/22 09:09 Amlodipine Besylate 5 Mg Tablet PO 10 mg QAM MORIAH Administration Apixaban 5 mg 10/05/22 21:00 10/07/22 09:10 Apixaban 5 Mg Tablet PO 5 mg Q12HR MORIAH Administration Calcium Carbonate 2,000 mg 10/05/22 21:00 10/06/22 20:00 Calcium Carbonate (Oscal) 500 Mg Tablet PO 11/04/22 20:59 2,000 mg HS MORIAH Administration Clorazepate Dipotassium 3.75 mg 10/06/22 14:25 10/07/22 09:09 Clorazepate Dipotassium (*Crx) 3.75 Mg Tablet PO 3.75 mg Q12HR MORIAH Administration Flecainide Acetate 50 mg 10/05/22 13:00 10/07/22 09:09 Flecainide Acetate 50 Mg Tablet PO 50 mg Q12HR MORIAH Administration Gabapentin 300 mg 10/06/22 13:30 10/07/22 12:04 Gabapentin 300 Mg Capsule PO 300 mg TID MORIAH Administration Hydralazine HCl 10 mg 10/05/22 12:47 Hydralazine Hcl 20 Mg/Ml Vial IV PUSH Q8H PRN Blood Pressure - High Hydrochlorothiazide 25 mg 10/05/22 09:00 10/07/22 09:10 Hydrochlorothiazide 25 Mg Tablet PO 25 mg QAM MORIAH Administration Ceftriaxone Sodium/Dextrose 1 gm in 50 mls @ 100 mls/hr 10/05/22 11:00 10/07/22 12:05 Rocephin 1 Gm/D5w 50 Ml IVPB Infused Q24H MORIAH Infusion Levothyroxine Sodium 100 mcg 10/05/22 08:55 10/07/22 05:05 Levothyroxine Sodium 100 Mcg Tablet PO 100 mcg [id number] MORIAH Administration Metoprolol Succinate 50 mg 10/05/22 09:00 10/05/22 09:57 Metoprolol Succinate Ext Rel 50 Mg Tabcr PO 50 mg DAILY MORIAH Administration Multivitamins/Minerals 1 tablet 10/06/22 12:00 10/07/22 12:04 Multivits W-Fe,Min Chewable
--- NOTE | 2022-10-07 12:14 | PM.DS ---
DS: Admitting Diagnosis Discharge Date 10/07/22 Admitting Diagnosis headache DS: Discharge Diagnosis Discharge Diagnosis (1) Headache: Code(s): R51.9 - Headache, unspecified Status: Acute (2) Hypertension, uncontrolled: Code(s): I10 - Essential (primary) hypertension Status: Acute (3) SCAR (acute kidney injury): Code(s): N17.9 - Acute kidney failure, unspecified Status: Acute (4) UTI (urinary tract infection): Code(s): N39.0 - Urinary tract infection, site not specified Status: Acute (5) MDD (major depressive disorder), recurrent episode, moderate: Code(s): F33.1 - Major depressive disorder, recurrent, moderate Status: Acute Plan 1)headache: Acute onset MRI brain unremarkable Pain control with percocet Sumatriptan did not help Add gabapentin 2)HTN:BP uncontrolled Can be exacerbating headache Bp is 150/50 Add Norvasc, HCTZ Add PRN IV hydralazine 3)Afibb: resume eliquis, Flecainide 4)?UTI:UA s/o UTI follow UC Start on IV ceftriaxone 5)SCAR: Creat is nl now 6)DVT ppx:On Eliquis 7)Code:Full DS: Summary Hospital Course Hospital Course: 72 years old F with PMH of HTN presented with? headache. According to her it started on wednesday, she was working out, she bend over when she developed severe headache on riggh temporal side. this has been associated with nausea and few episodes of vomiting.Denies any visual symptoms, redness of eye, trauma to frontal/temporal region. Denies fever, chills, upper resp symptoms. Presented to ER, BP was significantly elevated. Patient had similar symptoms years ago and went through a lot of tests including temporal artery biopsy with negative results the headache at that time lasted for few months and resolve spontaneously, no significant diagnosis was done at that time.? CTA head and neck as well as MRI brain were both done within normal limits. Neurology was consulted and recommended starting clorazepate 3.75 mg every 12 hours and Percocet as needed. She was also started on gabapentin 300 mg 3 times a day. This regimen was initially too sedating as well as too expensive at discharge. Patient was switched to gabapentin 300 mg q.h.s., Klonopin 0.5 mg q.12 hours as needed and restarted on home Prozac she had been previously taking but stopped of her own accord. Symptoms improved dramatically, labs remained stable. She was discharged in stable condition with prescriptions and close follow-up with Neurology. She will also need to follow up with her family doctor for possible blood pressure medication as her blood pressure was somewhat elevated. Time Spent with Patient Time attestation: Total time spent providing and/or coordinating discharge services: Exam Narrative: General: No acute distress, alert and oriented per baseline HEENT: Atraumatic, normocephalic, mucous membranes moist CV: Regular rate and rhythm, S1, S2 Lungs: Clear to auscultation bilaterally, no rales or crackles noted, no wheezes, good air entry Abdomen: Soft, nontender, nondistended Extremities: Normal to inspection Skin: No rashes noted, no lesions or wounds seen Psych: Euthymic, normal affect DS: Data Data Completed and Pending Labs on day of discharge: Preliminary micro results at discharge 10/05/22 11:46 Urine Culture - Preliminary Clean Catch Midstream Gram negative bacilli isolated Discharge Plan Discharge Attending physician on discharge: Kristina Malone Consulting providers: Ginette Khan Discharging Clinician: Kristina Malone Patient Disposition: Home, Self-Care Activity: as tolerated Diet: as tolerated Patient Instructions: Antibiotic Form, Blood Thinners (DC) Stand Alone Forms: General Discharge Information Follow-up/Referrals: Christine Parra MD [Primary Care Provider] - Ginette Khan MD [Physician] - Discharge Medications: New fluoxetine 20 mg Tablet
--- NOTE | 2022-10-07 17:16 | PM.IMPN ---
Progress Note: A&P Assessment and Plan (1) Headache: Code(s): R51.9 - Headache, unspecified Status: Acute Assessment and Plan: Much improved, decrease gabapentin to q.h.s., switch clorazepate to Klonopin, restart fluoxetine History of significant workup, appreciate neurology consultation (2) Hypertension, uncontrolled: Code(s): I10 - Essential (primary) hypertension Status: Acute Assessment and Plan: Was stable and controlled on metoprolol 50 mg daily, will discontinue Norvasc and hydrochlorothiazide, suspect her accelerated hypertension was secondary to her pain from her headache, will defer further blood pressure management to her family doctor as her blood pressure was in the 120s over 80s prior to admission (3) SCAR (acute kidney injury): Code(s): N17.9 - Acute kidney failure, unspecified Status: Acute Assessment and Plan: Resolved (4) UTI (urinary tract infection): Code(s): N39.0 - Urinary tract infection, site not specified Status: Acute Assessment and Plan: Urine culture showing Proteus, currently receiving Rocephin, will deescalate to Keflex at discharge to complete a 7 day course (5) PAF (paroxysmal atrial fibrillation): Code(s): I48.0 - Paroxysmal atrial fibrillation Status: Acute Assessment and Plan: Continue metoprolol, flecainide Plan DVT prophylaxis with Eliquis GI prophylaxis not indicated Code status full code Subjective Date/time seen: 10/07/22 17:16 Interval history: No overnight events noted. No chest pain or shortness of breath. No nausea, vomiting or diarrhea. No fevers or chills. Headache much improved. She is feeling quite groggy with the gabapentin would like to only take that at bedtime. She also states she used to be on fluoxetine at seemed to help her, she would like to restarted because she thinks that she is getting depressed/anxious again since the loss of her mother. Review of Systems Review of Systems: 12 point review of systems was assessed and was negative except as noted in the HPI Exam Narrative: General: No acute distress, alert and oriented per baseline HEENT: Atraumatic, normocephalic, mucous membranes moist CV: Regular rate and rhythm, S1, S2 Lungs: Clear to auscultation bilaterally, no rales or crackles noted, no wheezes, good air entry Abdomen: Soft, nontender, nondistended Extremities: Normal to inspection Skin: No rashes noted, no lesions or wounds seen Psych: Euthymic, normal affect Neuro: Cranial nerves 2-12 grossly intact, strength +5/5 upper and lower extremities bilaterally Objective Data Vital Signs Vital Signs: Vital Signs - 24 hr 10/06/22 19:54 10/06/22 20:00 10/06/22 23:10 Temperature 97.8 F Pulse Rate 63 63 68 Respiratory Rate 16 16 18 Blood Pressure 131/58 L 143/85 H Pulse Oximetry 98 98 100 Oxygen Delivery Room Air Room Air 10/07/22 00:20 10/07/22 04:40 10/07/22 04:57 Temperature 97.1 F L Pulse Rate 67 64 63 Respiratory Rate 14 18 Blood Pressure 143/64 H Pulse Oximetry 95 96 98 Oxygen Delivery Autopap Autopap 10/07/22 09:09 10/07/22 08:00 10/07/22 14:08 Temperature 97.2 F L Pulse Rate 78 78 Respiratory Rate 18 Blood Pressure 122/65 Pulse Oximetry 97 Oxygen Delivery Autopap Intake/Output Intake/Output: Intake & Output 10/04/22 10/05/22 10/06/22 10/07/22 23:59 23:59 23:59 23:59 Intake Total 3000 1270 1550 860 Output Total 3250 3500 900 Balance 3000 -1980 -1950 -40 Meds/Results Medications: Active Medications Generic Name Dose Route Start Last Admin Trade Name Freq PRN Reason Stop Dose Admin Acetaminophen 650 mg 10/04/22 18:52 10/05/22 07:42 Acetaminophen 325 Mg Tablet PO 650 mg Q4H PRN Administration Mild Pain (1-3) or Fever Amlodipine Besylate 10 mg 10/05/22 09:00 10/07/22 09:09 Amlodipine Besylate 5 Mg Tablet PO 10 mg QAM MORIAH Administration Apixab
[2022-10-07] MEDS: PRAVASTATIN SODIUM 10 MG TABLET PO (20:34)
[2022-10-07] MEDS: CHOLECALCIFEROL 1,000 UNITS TABLET 5000 UNITS PO (20:34)
[2022-10-07] MEDS: CALCIUM CARBONATE (OSCAL) 500 MG TABLET 2000 MG PO (20:34)
[2022-10-07] MEDS: GABAPENTIN 100 MG CAPSULE PO (20:34)
[2022-10-07] MEDS: clonazePAM (*CRX) 0.5 MG TABLET PO (20:34)
[2022-10-08 00:40] VITALS: PULSE 72; RESP 13; O2SAT 97
[2022-10-08 03:05] VITALS: PULSE 69; RESP 12; O2SAT 98
[2022-10-08 04:33] VITALS: BP 113/59; PULSE 70; RESP 16; TEMP 36.6; O2SAT 97
[2022-10-08] MEDS: LEVOTHYROXINE SODIUM 100 MCG TABLET PO (06:04)
[2022-10-08 08:57] VITALS: PULSE 80
[2022-10-08] MEDS: FLECAINIDE ACETATE 50 MG TABLET PO (08:57)
[2022-10-08] MEDS: APIXABAN 5 MG TABLET PO (08:57)
[2022-10-08] MEDS: FLUoxetine HCL 20 MG CAPSULE PO (08:58)
[2022-10-08] MEDS: MULTIVITS W-FE,MIN CHEWABLE TABLET 1 TABLET PO (12:56)
== END 2022-10-08 16:35 | disposition home or self-care (01) ==
LOC: ANHED 18:45 → ANH3MED 23:12 → ANH3MEDSUR 10-09 09:34
PROVIDERS: Internal Medicine; Admitting Provider Family Medicine; Emergency Provider Emergency Medicine; PCP Family Medicine; Visit Provider Student in an Organized Health Care Education/Training Program
DX: R51.9 Headache, unspecified (principal); I10 Essential (primary) hypertension; N17.9 Acute kidney failure, unspecified; N39.0 Urinary tract infection, site not specified; B96.4 Proteus (mirabilis) (morganii) as the cause of diseases classified elsewhere; F33.1 Major depressive disorder, recurrent, moderate; I48.0 Paroxysmal atrial fibrillation; R11.0 Nausea; E03.9 Hypothyroidism, unspecified; Z20.822 Contact with and (suspected) exposure to COVID-19; F41.9 Anxiety disorder, unspecified; G93.89 Other specified disorders of brain; R90.82 White matter disease, unspecified; R91.8 Other nonspecific abnormal finding of lung field; M19.90 Unspecified osteoarthritis, unspecified site; K21.9 Gastro-esophageal reflux disease without esophagitis; I44.0 Atrioventricular block, first degree; K58.9 Irritable bowel syndrome, unspecified; Z98.890 Other specified postprocedural states; Z79.01 Long term (current) use of anticoagulants; Z79.899 Other long term (current) drug therapy; E78.2 Mixed hyperlipidemia; Z82.49 Family history of ischemic heart disease and other diseases of the circulatory system
CPT/HCPCS: 36415; 70450; 70496; 70498; 70553; 71045; 80048; 80053; 81001; 83735; 84484; 85025; 85610; 85652; 85730; 87077; 87086; 87186; 87637; 93005; 96361; 96365; 96366; 96372; 96374; 96375; 96376; 99285; A9270; A9577; G0378; J0360; J0696; J1170; J2270; J2405; J3030; J3475; J7030; Q9967

== ENCOUNTER 2022-10-28 12:56 | Outpatient (CLI) | payer MEDICARE, SELFPAY ==
--- NOTE | 2022-10-29 12:55 | WPDPFTINT ---
PFT Procedure Performed PFT Procedure Performed Spirometry with Pre/Post Bronchodilator Plethysmography (Lung Vol) Diffusing Cap (DLCO) Flow Vol Loop PFT Interpretation Lung volumes were measured with the body plethysmography method. Lung volumes are unremarkable. Spirometry showed normal expiratory flow rates and a normal FEV1 to FVC ratio of 73%. Following administration of a bronchodilator there was no significant change in the expiratory flow rates. Lung diffusion capacity is borderline normal at 70% predicted. Flow volume loop is consistent with suboptimal patient effort. Impression: Spirometry and lung volumes within normal range. Borderline normal lung diffusion capacity.
--- NOTE | 2022-10-29 12:58 | WPDSIXMINUTE ---
Six Minute Walk Procedure Procedure Performed Pulmonary Stress Test (6 min walk) Six Minute Walk Six Minute Walk: This 6 minute walk test was carried out with the patient breathing ambient air. The baseline pre-walk oxyhemoglobin saturation was 99%. The patient walked 243 meters with no stops during testing. During the walk the oxyhemoglobin saturation remained in the range of 99%-100%. Impression: No evidence of oxyhemoglobin desaturation on this testing.
== END 2022-10-28 12:57 | disposition home or self-care (01) ==
PROVIDERS: PCP Family Medicine; Visit Provider Internal Medicine Critical Care Medicine
DX: R06.00 Dyspnea, unspecified (principal)
CPT/HCPCS: 94060; 94618; 94726; 94729

== ENCOUNTER 2023-04-06 07:50 | Outpatient (CLI) | payer MEDICARE, SELFPAY ==
[2023-04-06 09:34] LABS: Hemoglobin A1C 5.1 % (<5.7)
[2023-04-06 09:52] LABS: Urine Cotinine NEGATIVE
== END 2023-04-06 07:51 | disposition home or self-care (01) ==
LOC: ANHSURGERY 08:00
PROVIDERS: PCP Family Medicine; Visit Provider Orthopaedic Surgery
DX: M17.11 Unilateral primary osteoarthritis, right knee (principal); Z01.818 Encounter for other preprocedural examination
CPT/HCPCS: 80307; 83036; 86850; 86900; 86901; 87081

== ENCOUNTER 2023-04-12 03:52 | Day surgery (SDC) | payer MEDICARE, SELFPAY ==
[2023-04-06 07:51] VITALS: BP 138/63; PULSE 55; RESP 16; TEMP 36.9; O2SAT 99; BMI 29.7
--- NOTE | 2023-04-06 08:31 | PC.NURSE ---
Report to the Outpatient Waiting Room, entrance under the green pavilion located off [facility], at time __6:00AM on date __04/12/23 . Planned Procedure Time: __7:30AM . Time changes happen often and if your time is changed the preop area will call you the afternoon before. - You and your visitor will be asked to self-screen and do not enter if you have any COVID symptoms. - A mask is optional within the hospital at this time. Patients may have clear liquids (water, carbonated beverages, clear teas, apple juice) until 3 hours prior to surgery with a maximum of 20 ounces. - No food from midnight until time of surgery Take the following medications with a SIP of water the morning of surgery: __AMLODIPINE, LEVOTHYROXINE, METOPROLOL, SERTRALINE, INHALER NEEDED DO NOT STOP ANY OF YOUR OTHER PRESCRIPTION MEDICATIONS PRIOR TO SURGERY ?EXCEPT THE FOLLOWING Medications to discontinue per physician ____HOLD ELIQUIS 3 DAYS PRE-OP- LAST DOSE 04/08/23, HOLD ALL VITAMINS/SUPPLEMENTS 3 DAYS PRE-OP - LAST DOSE 04/08/23 Please no make-up, nail ukrainian, hairspray, perfume, deodorant, or body powder the day of surgery. No jewelry (including any body piercings) or valuables the day of surgery, leave them at home. Please take a shower or bath the night before, or the morning of, surgery with an antibacterial soap. Wear comfortable, loose fitting clothing. Children are encouraged to wear pajamas. - Jewelry must be removed prior to entering the operating room. Rings and piercings that are not removed may be cut off. - The hospital will not accept responsibility for valuables. - Please leave all valuables, including medications, at home the day of surgery. If you are going home after surgery, a licensed armored car driver must drive you home. - NO public transportation without another adult if you receive anesthesia. - We recommend that an adult stay with you for 24 hours following discharge. - We also recommend that you do not drive, make important decision, drink alcoholic beverages, or take any drugs that were not prescribed by your health care provider for at least 24 hours after your discharge time. Follow any additional instructions given to you from your surgeon. HIBICLENS SHOWER PER DR BAILEY If you or anyone in your household have experienced Covid symptoms in the past week, please notify your surgeon or the nurse liaison at the phone number below for possible testing. Telephone instructions given to __PATIENT and asked if any additional questions and then verbalized understanding. Patient advised to call surgeon office or pre surgery nurse liaison [phone] if any additional questions.
--- NOTE | 2023-04-09 14:41 | WPDANESEPPF ---
Anes - Initial Pre Proc Eval Procedure: Operation Date: 04/12/23 07:30 Proposed Procedures p Right Total Knee Arthroplasty - Chandler Richard MD Date/Time: 04/09/23 14:41 Surgeon: Chandler Richard MD Pre Op Diagnosis: oa right knee Patient Data Age: 72 Gender: F Height: 1.57 m Weight: 73.9 kg Last Vital Signs Temp 98.4 F 04/06/23 07:51 Pulse 55 L 04/06/23 07:51 Resp 16 04/06/23 07:51 BP 138/63 04/06/23 07:51 Pulse Ox 99 04/06/23 07:51 O2 Del Method Room Air 04/06/23 07:51 Allergies Allergy/AdvReac Type Severity Reaction Status Date / Time alendronate sodium Allergy Unknown Hives Verified 04/12/23 06:34 nortriptyline AdvReac Severe Nightmare Verified 04/12/23 06:34 lisinopril AdvReac Mild dizzy Verified 04/12/23 06:34 Home Medications Medication Instructions Recorded Confirmed Type multivitamin 1 tablet PO DAILY 09/29/19 04/12/23 History calcium carbonate 600 mg calcium 2,400 mg PO HS 12/01/19 04/12/23 History (1,500 mg) tablet (Calcium) cholecalciferol (vitamin D3) 125 5,000 unit PO HS 12/01/19 04/12/23 History mcg (5,000 unit) tablet (Vitamin D3) apixaban 5 mg tablet (Eliquis) 5 mg PO BID #180 tabs 01/28/22 04/12/23 Rx sertraline 25 mg tablet 25 mg PO BID 90 days #180 tabs 11/20/22 04/12/23 Rx amlodipine 5 mg tablet 5 mg PO QAM 04/06/23 04/12/23 History eszopiclone 3 mg tablet (Lunesta) 3 mg PO QHS PRN Insomnia 04/06/23 04/12/23 History levalbuterol tartrate 45 2 inh inhalation DAILY PRN Dyspnea 04/06/23 04/12/23 History mcg/actuation aerosol inhaler levothyroxine 100 mcg tablet 100 mcg PO 5XW 04/06/23 04/12/23 History metoprolol succinate 50 mg 50 mg PO QAM 04/06/23 04/12/23 History tablet,extended release 24 hr pravastatin 10 mg tablet 10 mg PO HS 04/06/23 04/12/23 History Patient hx anesthesia problems: none Family hx anesthesia problems: none Results Review: All pre-operative results and documents have been reviewed as part of the pre-operative evaluation. [facility] Past Medical History Medical History Acute mucoid otitis media of left ear Acute right-sided low back pain with right-sided sciatica Anxiety Atherosclerosis of aorta Breast screening Degenerative joint disease GERD (gastroesophageal reflux disease) History of rectal polyps Hypertension Hypothyroidism IBS (irritable bowel syndrome) MDD (major depressive disorder), recurrent episode, moderate Mixed hyperlipidemia Paroxysmal atrial fibrillation On metoprolol. She is not on long-term anticoagulation. Right hip pain Sacroiliac joint dysfunction of right side Trochanteric bursitis of right hip Surgical History Surgical History History of biopsy of temporal artery 05/22/20 History of hysterectomy History of total left knee replacement With revision. Hx of appendectomy Hx of carpal tunnel repair Hx of cataract surgery Hx of cholecystectomy Hx of tubal ligation Previous back surgery S/P partial thyroidectomy For benign thyroid nodules. Family History Family History Mother Hypertension Uterine cancer High cholesterol Sibling PAD (peripheral artery disease) Hx of heart artery stent Father Family history of heart disease in male family member before age 55, Onset Age: 70 CHF (congestive heart failure) Sibling Hypertension High cholesterol Sibling Pancreatic cancer History of quadruple bypass CHF (congestive heart failure) Social History Social History Social History: The patient is and lives with her in [place]. 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 She smoked remotely in her teens. No alcohol or drug abuse. She designates her as her surrogate decision ma
--- NOTE | 2023-04-09 15:04 | PM.IMHP ---
H&P: HPI History of Present Illness Date/Time: 04/09/23 15:04 Chief Complaint: Right knee DJD Narrative: 72-year-old female patient of Dr. King who presents today for a right total knee arthroplasty. Patient has severe patellofemoral osteoarthritis in the right knee. She is unable take anti-inflammatories due to being on Eliquis. She had a cortisone injection in November of this year which only gave her about 1 month of relief. She tried physical therapy without improvement of her symptoms. She has had her left knee replaced in the past and is happy with her results. She feels at this point she is having symptoms on regular basis and would rather proceed with total knee arthroplasty at this point rather continue nonsurgical treatment. Review of Systems Review of Systems: All systems reviewed & are unremarkable except as noted in HPI and below PMFSH Past Medical History Medical History Acute mucoid otitis media of left ear Acute right-sided low back pain with right-sided sciatica Anxiety Atherosclerosis of aorta Breast screening Degenerative joint disease GERD (gastroesophageal reflux disease) History of rectal polyps Hypertension Hypothyroidism IBS (irritable bowel syndrome) MDD (major depressive disorder), recurrent episode, moderate Mixed hyperlipidemia Paroxysmal atrial fibrillation On metoprolol. She is not on long-term anticoagulation. Right hip pain Sacroiliac joint dysfunction of right side Trochanteric bursitis of right hip Surgical History Surgical History History of biopsy of temporal artery 05/22/20 History of hysterectomy History of total left knee replacement With revision. Hx of appendectomy Hx of carpal tunnel repair Hx of cataract surgery Hx of cholecystectomy Hx of tubal ligation Previous back surgery S/P partial thyroidectomy For benign thyroid nodules. Family History Family History Mother Hypertension Uterine cancer High cholesterol Sibling PAD (peripheral artery disease) Hx of heart artery stent Father Family history of heart disease in male family member before age 55, Onset Age: 70 CHF (congestive heart failure) Sibling Hypertension High cholesterol Sibling Pancreatic cancer History of quadruple bypass CHF (congestive heart failure) Social History Social History Social History: The patient is and lives with her in [place]. 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 No alcohol or drug abuse. She designates her as her surrogate decision maker and she wishes to be a full code. Smoking status: Never smoker Second hand tobacco smoke exposure: No Alcohol intake: never Substance use: never Substance use type: does not use Lack of Transportation: No Lack of Food: Never True Current Housing: I Have Housing Concerned About Future Housing: No Difficulty Paying Gas/Electric Bills: No Difficulty Paying for Meds: No Currently Unemployed: No Education: High School Diploma/GED Difficulty w/ Childcare or Family Care: No Living arrangements: with family Additional living arrangements comments: [facility] Occupation/Education: retired Gender identity (if verbalized by the patient): Female Sexual Orientation (if Verbalized by the Patient): Straight or Heterosexual Spiritual care concerns: No Agree to blood products: Yes Meds Home Medications and Allergies Home Medications Medication Instructions Recorded Confirmed Type multivitamin 1 tablet PO DAILY 09/29/19 04/06/23 History calcium carbonate 600 mg calcium 2,400 mg PO HS 12/01/19 04/06/23 History (1,500 mg) tablet (Calcium) cholecalciferol (
[2023-04-12] VITALS (16 sets, daily range): BP systolic 115–153; BP diastolic 56–71; PULSE 54–86; RESP 14–21; TEMP 36.2–36.9; O2SAT 94–99
--- NOTE | ~2023-04-12 | XR_ITS ---
[id number] DATE: 04/12/2023 11:05 INDICATION: Right total knee replacement TECHNIQUE: Postoperative AP and crosstable lateral views COMPARISON: None FINDINGS: Status post right knee arthroplasty without patellar resurfacing. There is expected postope rative subcutaneous and intra-articular gas. Normal alignment at the knee joint. No fracture or dislo cation, periosteal reaction or bone destruction or any unusual radiopaque foreign body. IMPRESSION: Status post right knee arthroplasty Reviewed, dictated and finalized at [facility]. Reviewed, dictated and finalized at location [facility].
[2023-04-12] MEDS: LACTATED RINGERS 1,000 ML 30 ML IV CONT ×2 (06:45→11:03)
[2023-04-12] MEDS: TRANEXAMIC ACID 1,000MG/ISO100 1,000 MG/100 ML BAG 200 MG IVPB (06:54)
[2023-04-12] MEDS: ACETAMINOPHEN 500 MG TABLET 1000 MG PO ×3 (06:58→18:16)
[2023-04-12] MEDS: VANCOMYCIN 1,000 MG/NS 250 ML BAG 250 MG IVPB (07:04)
--- NOTE | 2023-04-12 07:15 | WPDHPUPDATE1 ---
History and Physical Update Update Date/Time: 04/12/23 07:15 History and Physical has been reviewed, including an updated exam of the patient. There are NO changes in the patient's condition. Risks, benefits, and alternatives have been discussed and questions answered. Patient agrees to proceed with procedure.
[2023-04-12] MEDS: ceFAZolin 2 GM/D5W 50 ML 2 GM/50 ML BAG IVPB (07:28)
[2023-04-12] MEDS: ceFAZolin SODIUM 1 GM VIAL 3 GM (07:48)
[2023-04-12] MEDS: GENTAMICIN BONE CEMENT REFOBACIN 1 EACH TOPICAL (07:49)
[2023-04-12] MEDS: KETOROLAC 15 MG/ML VIAL (*BKC) IV PUSH (07:53)
[2023-04-12] MEDS: ceFAZolin SODIUM 1 GM VIAL 2 GM IV PUSH (10:10)
[2023-04-12] MEDS: TRANEXAMIC ACID 1,000 MG/10 ML AMPUL 1000 MG IV PUSH (10:10)
--- NOTE | 2023-04-12 10:51 | W.PM.PROC2 ---
Procedure Note - Detailed Date of Procedure 04/12/23 Pre-op Diagnosis Severe patellofemoral oa right knee Post-op Diagnosis Same Procedure Performed Right total knee arthroplasty Surgeon Chandler Richard MD [employer] Elena Anesthesia General Description of Procedure Patient was brought to the operating room and general anesthesia was administered. She received 2 g of Ancef weight based vancomycin 1 g of tranexamic acid preoperatively. The right leg appeared to have about 2 or 3? of hyperextension preoperatively. Was no medial pseudolaxity mild lateral laxity. The right leg was prepped draped usual fashion. Limb was exsanguinated and tourniquet elevated to 300 mmHg. A 7 in longitudinal midline incision was used and a vastus medialis splitting approach utilized splitting them the vastus medialis at the superior pole of patella. Infrapatellar and suprapatellar fat pads were excised a quadriceps synovectomy carried out. A minor lateral facetectomy was performed. She had severe eburnation and scalloping of the lateral and apical ridge of patella due to wear. There was similar complete eburnation of the lateral trochlear ridge. At the center the apical ridge the patella measured 19 mm. The inferior lateral portion of patella only measured 13 mm. With her history of diminished bone density, I felt that non resurfacing would be the safest approach. I felt the patella was simply too thin to safely resurfaced this with out risking severe complications. We carefully trimmed osteophytes around the patella contour the lateral rim was somewhat prominent due to the scalloping of the center of the lateral facet. A guide nemo was inserted down the femoral canal after aspiration of canal contents and using the 5 degree valgus cutting bushing 9 mm of bone was removed the medial femoral condyle which removed about 6 laterally. Next the tibial plateau was cut. We tried to cut the tibia at perpendicular 0? varus valgus and no significant slope. Our initial cut did not get through the articular cartilage posteriorly and we reapplied the tibial cutting guide and the 2nd cut did. Meniscal remnants were excised the PCL recessed. Flexion gap at 90? was 8 mm medially and 11 mm laterally. We set the sizing guide at 4? of external rotation. We applied the 60 femoral cutting block this was clearly going to notch. We applied the 62.5 cutting block. Anterior cut was made. Posterior chamfer cuts were made and as expected the 62.5 was far too wide. She had posterior curve of her distal femoral metaphysis which we anticipated as being a problem and we therefore introduced about 3 or 4? of posterior slope to the distal femoral cut and with this we were able to applied the 60 vanguard cutting guide and all the cuts revisited and the 60 fit very nice see that tight fit and when flush with the medial femoral condyle distally overhung 1 mm laterally. The 10 mm CR trial was placed and we had equal flexion gaps. The tibia was sized to a 67 which fit line to line anteromedial to posterolateral. The bone in the center of the tibia was quite soft with the peripheral bone was good. We trialed with the 10 insert. The medial side particularly with the arthrotomy approximated was tight at 90? and there was a slight bounce present in extension. We removed the posterior femoral bone proximal to the condyles of the femoral trial and we reapplied the tibial cutting guide and applied about 1 degree of varus to the original cut and this was punched again and repeat trialing with the 10 , I felt had appropriate stability at 90? but there was still a slight bounce in extension barely perceptible but there is no medial opening in extension and therefore an additional mm of bone was removed the distal femur chamfer cuts revisited and on read trialing the knee came out easily to full extension with mm and half of opening medially and extension 3 mm laterally appropriate stability throughout range of mot
--- NOTE | 2023-04-12 11:10 | PM.OP ---
Procedure Note - Brief Procedure Note - Brief Date of procedure: 04/12/23 oa right knee Procedure performed: Right total knee arthroplasty Surgeon: MICHA Sarkar Description of procedure: 72-year-old female underwent right total knee arthroplasty on 04/12. I was involved in the procedure including positioning the patient on the OR table as well as 1st assisting to the time of surgery. Total time spent was 3-1/2 hours
[2023-04-12] MEDS: fentaNYL CITRATE INJ (*CRX) 100 MCG/2 ML VIAL 25 MCG IV PUSH ×8 (11:25→11:49)
[2023-04-12] MEDS: SODIUM CHLORIDE 0.9% IV 1,000 ML 125 ML IV CONT (13:01)
[2023-04-12] MEDS: oxyCODONE HCL (*CRX) 5 MG TAB IR PO ×6 (13:01→22:48)
--- NOTE | 2023-04-12 13:10 | ADMGEN ---
This patient, Eugenia Chang, was admitted to 2 Medical Room 259-01. Patient/family oriented to hospital policies and general routines including ID bracelet, bed and alarms, visiting hours, pain management, procedures, bathroom and other care routines, personal items, smoking policy, room service/diet, and visiting hours. Information on how to activate the Rapid Response Team has been discussed. Patient/Family are encouraged to report perceived risks to care and to ask questions if they do not understand what they are told or what they should do.
[2023-04-12] MEDS: KETOROLAC 15 MG/ML VIAL (*BKC) 7.5 MG IV PUSH ×2 (14:17→18:16)
[2023-04-12] MEDS: ceFAZolin 1 GM/NS 50 ML 1 GM/50 ML BAG IVPB ×2 (14:33→22:48)
--- NOTE | 2023-04-12 16:22 | PCPTNOTE ---
On 04/12/23, the student, KARIME Miranda, provided care and completed [facility] documentation on this patient. I have reviewed the student's documentation and agree with the findings.
[2023-04-12] MEDS: SERTRALINE HCL 25 MG TABLET PO (16:38)
[2023-04-12] MEDS: SENNA/DOCUSATE SODIUM TABLET 2 TAB PO (16:39)
--- NOTE | 2023-04-12 17:12 | WPDCN ---
Assessment and Plan Assessment and plan (1) Osteoarthritis of right knee: Code(s): M17.11 - Unilateral primary osteoarthritis, right knee Status: Acute Assessment and Plan: Postoperative day 0 status post right total knee arthroplasty. Wound care, pain control, and DVT prophylaxis deferred to Dr. Richard. The patient has a history of C diff and should watch for diarrhea. Check baseline labs in a.m.. Agree with PT/OT (2) Hypertension: Qualifiers: Hypertension type: essential hypertension Qualified Code(s): I10 - Essential (primary) hypertension Code(s): I10 - Essential (primary) hypertension Status: Acute Assessment and Plan: Blood pressures were reviewed and they have been stable postoperatively. Continue antihypertensives and monitor. (3) Hypothyroidism: Qualifiers: Hypothyroidism type: acquired Qualified Code(s): E03.9 - Hypothyroidism, unspecified Code(s): E03.9 - Hypothyroidism, unspecified Status: Acute Assessment and Plan: Continue levothyroxine and check TSH. (4) Mixed hyperlipidemia: Code(s): E78.2 - Mixed hyperlipidemia Status: Acute Assessment and Plan: Continue pravastatin and check LFTs. (5) Obstructive sleep apnea on CPAP: Code(s): G47.33 - Obstructive sleep apnea (adult) (pediatric) Status: Acute Assessment and Plan: CPAP will be provided for the patient to use while hospitalized. (6) Paroxysmal atrial fibrillation: Code(s): I48.0 - Paroxysmal atrial fibrillation Status: Acute Assessment and Plan: Currently in a sinus rhythm. Continue metoprolol. Resume Eliquis when okay with Dr. Richard. Plan Thank you for allowing us to participate in this patient's care. Please do not hesitate to contact us with any questions. HPI Data of Consult Date/Time: 04/12/23 16:45 Requesting Physician: Chandler Richard MD Consult Narrative Reason for consult: Postoperative medical management. Narrative: This is a 72-year-old female with hypertension, hyperlipidemia, hypothyroidism, paroxysmal atrial fibrillation, gastroesophageal reflux disease, and osteoarthritis whom the hospitalist service has been consulted for help managing her medical conditions postoperatively. She has severe arthritis in her right knee and she has had ongoing symptoms despite conservative outpatient treatment and she elected for replacement today. Her left knee was replaced previously and she did well with that. Her surgery was performed today under general anesthesia with no immediate complications documented an estimated blood loss of 250 mL. She felt a bit woozy postoperatively but that passed quickly and she has done remarkably well since that time. She has been up to the chair and ambulating with a walker and her pain is well controlled. Appetite has been good and she denies nausea and vomiting. She also denies fever, chills, sweats, chest pain, shortness a breath. No paresthesias, skin color, or temperature changes distal to the surgical site. She has been off of her Eliquis since the in anticipation of the surgery and that will likely be resumed tomorrow. She has not had any recent episodes of atrial fibrillation. She wears her CPAP at night and brought her unit from home. She believes her chronic medical problems are well controlled on home medications. Review of Systems Review of Systems: Twelve systems were reviewed and are negative except for as per HPI. FORMERLY [facility] Past Medical History Medical History (Updated 04/12/23 @ 17:20 by Piedad Galvan PA-C) Anxiety Atherosclerosis of aorta Clostridium difficile infection (11/2019) Degenerative joint disease Depression Gastroesophageal reflux disease History of rectal polyps Hypertension Hypothyroidism Irritable bowel syndrome Mixed hyperlipidemia Obstructive sleep apnea on CPAP Paroxysmal atrial fibrillation On metopr
[2023-04-12] MEDS: VANCOMYCIN 1,000 MG/NS 250 ML 1,000 MG/250 ML BAG 250 MG IVPB (18:13)
[2023-04-12] MEDS: PRAVASTATIN SODIUM 10 MG TABLET PO (20:34)
[2023-04-12] MEDS: FAMOTIDINE 20 MG TABLET PO (20:34)
[2023-04-12] MEDS: CHOLECALCIFEROL 1,000 UNITS TABLET 5000 UNITS PO (20:34)
[2023-04-13] VITALS (8 sets, daily range): BP systolic 113–128; BP diastolic 46–55; PULSE 51–65; RESP 16–18; TEMP 36.2–36.6; O2SAT 93–97
[2023-04-13] MEDS: KETOROLAC 15 MG/ML VIAL (*BKC) 7.5 MG IV PUSH (00:13)
[2023-04-13] MEDS: ACETAMINOPHEN 500 MG TABLET 1000 MG PO ×3 (00:14→11:33)
[2023-04-13] MEDS: oxyCODONE HCL (*CRX) 5 MG TAB IR PO ×7 (01:46→12:36)
[2023-04-13] MEDS: LEVOTHYROXINE SODIUM 100 MCG TABLET PO (05:42)
[2023-04-13 05:56] LABS: Basophils Percent Auto 0.4 % (0.2-1.2); Eosinophils Absolute Auto 0.1 K/mm3 (0-0.3); Eosinophils Percent Auto 0.8 % (0-4.4); Hematocrit 30.1 % (37.0-47.0); Hemoglobin 9.7 g/dL (12.0-15.0); Immature Granulocyte Absolute 0.17 K/mm3 (0.00-0.031); Immature Granulocyte Percent A 1.6 % (0-0.5); Lymphocytes Absolute Auto 1.72 K/mm3 (0.9-3.2); Mean Corpuscular HGB Conc 32.2 g/dl (32-36); Mean Corpuscular Hemoglobin 30.8 pg (26-34); Mean Corpuscular Volume 95.6 fl (80-100); Mean Platelet Volume 9.7 fl (7.4-10.4); Monocytes Percent Auto 8.9 % (2.6-8.5); Neutrophils Absolute Auto 7.8 K/mm3 (1.3-6.7); Neutrophils Percent Auto 72.3 % (45.5-73.1); Platelet Count Result 280 k/mm3 (150-375); Red Blood Count 3.15 M/mm3 (4.2-5.4); Red Cell Distribution Width 13.3 % (11.5-14.5); White Blood Count 10.7 K/mm3 (4.5-10.0)
[2023-04-13 06:06] LABS: Alanine Aminotransferase 28 U/L (6-35); Albumin Level 3.3 g/dL (3.5-5.1); Alkaline Phosphatase 54 U/L (38-126); Anion Gap 4 mmol/L (8-16); Aspartate Amino Transferase 33 U/L (14-36); Bilirubin,Total 0.5 mg/dL (0.2-1.3); Blood Urea Nitrogen 11 mg/dL (7-17); Calcium 8.2 mg/dL (8.4-10.2); Carbon Dioxide 30 mmol/L (22-30); Chloride 96 mmol/L (98-107); Estimated CRCL calculation 73 ml/min; Estimated Glomerular Filt Rate > 60; Glucose 103 mg/dL (65-110); Magnesium 1.4 mg/dL (1.6-2.3); Potassium 3.3 mmol/L (3.4-5.0); Sodium 130 mmol/L (137-145)
[2023-04-13] MEDS: ceFAZolin 1 GM/NS 50 ML 1 GM/50 ML BAG IVPB (06:07)
--- NOTE | 2023-04-13 06:29 | PM.PNORT ---
Subjective Subjective Date/Time Seen: 04/13/23 06:29 Interval history: Day 1 patient is alert. She is afebrile vital signs are stable. Dressing is intact and dry. Patient was up yesterday with physical therapy and comfortable. She is having a little bit more pain this morning particularly in posterior aspect of the knee. Was able left leg up off the pillow without discomfort. Morning labs are noted. I talked with patient about making sure and that if she needs a 2nd oxycodone as for at help with pain control. We will plan to have the patient work with physical therapy this morning and if she is doing well she may be discharged home she feels she needs additional therapy then she will leave later this afternoon after her 2nd session. Objective Data Vital Signs Vital Signs: Vital Signs - 24 hr 04/12/23 06:40 04/12/23 11:03 04/12/23 11:10 Temperature 36.7 C 36.9 C Pulse Rate 63 86 83 Respiratory Rate 16 20 14 Blood Pressure 152/58 H 133/71 134/70 Pulse Oximetry 99 99 99 Oxygen Delivery Room Air Simple Face Mask Simple Face Mask Oxygen Flow Rate 8 8 04/12/23 11:25 04/12/23 11:40 04/12/23 11:55 Temperature 36.2 C L Pulse Rate 78 78 70 Respiratory Rate 14 16 16 Blood Pressure 132/71 127/59 L 115/63 Pulse Oximetry 99 96 99 Oxygen Delivery Simple Face Mask Nasal Cannula Nasal Cannula Oxygen Flow Rate 8 2 2 04/12/23 12:05 04/12/23 12:30 04/12/23 12:45 Temperature 36.3 C L 36.4 C 36.4 C Pulse Rate 73 70 72 Respiratory Rate 14 16 16 Blood Pressure 120/56 L 129/57 L 130/57 L Pulse Oximetry 98 98 98 Oxygen Delivery Nasal Cannula Oxygen Flow Rate 2 04/12/23 13:15 04/12/23 14:15 04/12/23 15:15 Temperature 36.6 C 36.6 C Pulse Rate 62 63 Respiratory Rate 16 16 Blood Pressure 153/57 H 148/59 H Pulse Oximetry 99 94 Oxygen Delivery Room Air Oxygen Flow Rate 04/12/23 16:47 04/12/23 16:01 04/12/23 19:44 Temperature 36.4 C 36.4 C L Pulse Rate 60 76 58 L Respiratory Rate 16 17 Blood Pressure 149/57 H 145/61 H Pulse Oximetry 99 96 Oxygen Delivery Oxygen Flow Rate 04/12/23 20:00 04/12/23 22:09 04/13/23 00:07 Temperature 36.2 C L Pulse Rate 54 L 54 L Respiratory Rate 21 H 17 Blood Pressure 113/46 L Pulse Oximetry 97 Oxygen Delivery Autopap Oxygen Flow Rate 04/13/23 00:00 04/13/23 02:00 04/13/23 04:00 Temperature Pulse Rate 53 L 65 Respiratory Rate 18 Blood Pressure Pulse Oximetry Oxygen Delivery Autopap Oxygen Flow Rate 04/13/23 05:52 Temperature 36.6 C Pulse Rate 51 L Respiratory Rate 16 Blood Pressure 121/55 L Pulse Oximetry 96 Oxygen Delivery Oxygen Flow Rate Intake/Output Intake/Output: Intake & Output 04/10/23 04/11/23 04/12/23 04/13/23 23:59 23:59 23:59 23:59 Intake Total 3340 850 Output Total 1000 900 Balance 2340 -50 Meds/Results Medications: Active Medications Generic Name Dose Route Start Last Admin Trade Name Freq PRN Reason Stop Dose Admin Acetaminophen 1,000 mg 04/12/23 12:18 04/13/23 05:42 Acetaminophen 500 Mg Tablet PO 1,000 mg Q6H MORIAH Administration Amlodipine Besylate 5 mg 04/13/23 09:00 Amlodipine Besylate 5 Mg Tablet PO QAM MORIAH Apixaban 2.5 mg 04/13/23 09:00 Apixaban 2.5 Mg Tablet PO 04/24/23 21:01 Q12HR MORIAH Celecoxib 100 mg 04/13/23 08:00 Celecoxib 100 Mg Capsule PO DAILY@0800 MORIAH Cephalexin HCl 500 mg 04/13/23 10:00 Cephalexin 500 Mg Capsule PO Q6HR MORIAH Diphenhydramine HCl 25 mg 04/12/23 12:18 Diphenhydramine Hcl Inj 50 Mg/Ml Vial IV PUSH Q6H PRN Itching Famotidine 20 mg 04/12/23 21:00 04/12/23 20:34 Famotidine 20 Mg Tablet PO 20 mg Q12HR MORIAH Administration Vancomycin HCl 1,000 mg in 250 mls @ 250 mls/hr 04/12/23 19:00 04/12/23 19:13 Vancomycin 1,000 Mg/Ns 250 Ml IVPB 04/13/23 07:59 Infused Q12H MORIAH Infusion Cefazolin Sodium 1 gm in 50 mls @ 100 mls/hr 04/12/23 15:00 07
--- NOTE | 2023-04-13 06:34 | PM.DS ---
DS: Admitting Diagnosis Discharge Date 04/13 Admitting Diagnosis Right knee DJD DS: Discharge Diagnosis Discharge Diagnosis (1) Osteoarthritis of right knee: Code(s): M17.11 - Unilateral primary osteoarthritis, right knee Status: Acute DS: Summary Hospital Course Hospital Course: 72-year-old female underwent right total knee arthroplasty on 04/12. Underwent the procedure without complications. Postoperatively she has been afebrile vital signs are stable. And she is weight-bearing as tolerated. She was up walking with physical therapy day of surgery and comfortable. Pain is well controlled with scheduled Tylenol as well as oxycodone 5 mg. She is on Celebrex 100 mg daily for 3 days. She will be on Eliquis 2.5 mg b.i.d. for 3 days and then she will resume normal 5 mg dosing. She will also go home with a 10 day course of Keflex. She will also go home with Senokot patient states she has MiraLax at home versus on a daily basis for constipation. Patient was advised to keep leg elevated home with the foot higher than the heart prevent swelling but also do her exercise on an hourly basis. She has outpatient therapy starting last . She was advised any questions or concerns she is to call the office otherwise we will see her at her appointed date. Time Spent with Patient Time attestation: Total time spent providing and/or coordinating discharge services: DS: Data Data Completed and Pending Labs on day of discharge: Labs from last 24 hours 04/13/23 05:32 WBC 10.7 H RBC 3.15 L Hgb 9.7 L Hct 30.1 L MCV 95.6 MCH 30.8 MCHC 32.2 RDW 13.3 Plt Count 280 MPV 9.7 Immature Gran % (Auto) 1.6 H Neut % (Auto) 72.3 Lymph % (Auto) 16.0 L Dade % (Auto) 8.9 H Eos % (Auto) 0.8 Baso % (Auto) 0.4 Lymph # (Auto) 1.72 Dade # (Auto) 1.0 H Eos # (Auto) 0.1 Baso # (Auto) 0.0 Abs Immat Gran (auto) 0.17 H Absolute Neuts (auto) 7.8 H Absolute Nucleated RBC 0.0 Nucleated RBC % 0.0 Sodium 130 L Potassium 3.3 L Chloride 96 L Carbon Dioxide 30 Anion Gap 4 L BUN 11 Creatinine 0.60 L Estim Creat Clear Calc 73 Estimated GFR > 60 Glucose 103 Calcium 8.2 L Magnesium 1.4 L Total Bilirubin 0.5 Direct Bilirubin 0.0 AST 33 ALT 28 Alkaline Phosphatase 54 Total Protein 6.0 L Albumin 3.3 L TSH (Reflex) Pending Discharge Plan Discharge Patient Disposition: Home, Self-Care Discharge Instructions: [facility], [place] [id number] [place] [address] POST-OPERATIVE DISCHARGE INSTRUCTIONS TOTAL KNEE ARTHROPLASTY 1. When resting, lie on back with leg elevated above heart to minimize swelling. Significant swelling could indicate a blood clot and if this occurs call the office (or go to the ER) to have a venous ultrasound. 2. Do exercise 5 times a day. 3. Do not sit with leg down except for meals. 4. Wound Care: Nursing will give additional dressings at discharge. Patient to change dressing at home 1 week from surgery, then maintain until seen in office. 5. May shower with dressing in place. 6. Follow weight bearing status instructions. IMPORTANT: Remember not to sit in the chair for more than 30 minutes at a time. As a rule, during the first 14 days after surgery, only sit in the chair to work on the chair knee bending stretch exercise, for meals or for use of the restroom. Sitting in the chair promotes significant swelling in the knee and leg which will make the knee stiff and more painful and which simulates having a blood clot in the veins of the leg. If this type of significant diffuse swelling occurs, an ultrasound at the hospital will be necessary to rule out a blood clot. Be up walking around with the walker for a few minutes every hour while awake and then rest laying on your back on the couch or in bed with your leg elevated on cushions or pillows. Do not rest in the chair.
[2023-04-13] MEDS: VANCOMYCIN 1,000 MG/NS 250 ML 1,000 MG/250 ML BAG 125 MG IVPB (06:35)
[2023-04-13] MEDS: METOPROLOL SUCCINATE EXT REL 50 MG TABCR PO (08:03)
[2023-04-13] MEDS: APIXABAN 2.5 MG TABLET PO (08:03)
[2023-04-13] MEDS: FAMOTIDINE 20 MG TABLET PO (08:04)
[2023-04-13] MEDS: amLODIPine BESYLATE 5 MG TABLET PO (08:04)
[2023-04-13] MEDS: polyethylene glycoL 3350 17 GM POWD.PACK PO (08:04)
[2023-04-13] MEDS: SERTRALINE HCL 25 MG TABLET PO (08:04)
[2023-04-13] MEDS: CELECOXIB 100 MG CAPSULE PO (08:04)
[2023-04-13] MEDS: SENNA/DOCUSATE SODIUM TABLET 2 TAB PO (08:04)
[2023-04-13 08:08] LABS: Free T4 Free Thyroxine Reflex 1.43 ng/dL (0.78-2.19)
[2023-04-13 08:52] LABS: Total Triiodothyronine (T3) 0.89 NG/ML (0.97-1.69)
[2023-04-13] MEDS: POTASSIUM CHLORIDE 20 MEQ ER TABLET 40 MEQ PO (09:50)
[2023-04-13] MEDS: CEPHALEXIN 500 MG CAPSULE PO (09:50)
[2023-04-13] MEDS: MAGNESIUM SULF 2 GM/WATER 50ML 2 GM/50 ML BAG IVPB (09:50)
[2023-04-13] MEDS: ONDANSETRON INJ 4 MG/2 ML VIAL IV PUSH (10:34)
--- NOTE | 2023-04-13 13:21 | PM.IMPN ---
Progress Note: A&P Assessment and Plan (1) Osteoarthritis of right knee: Code(s): M17.11 - Unilateral primary osteoarthritis, right knee Status: Acute Assessment and Plan: Postoperative day 1 status post right total knee arthroplasty. Wound care, pain control, and DVT prophylaxis deferred to Dr. Richard. The patient has a history of C diff and should watch for diarrhea. PT OT to see. (2) Hypertension: Qualifiers: Hypertension type: essential hypertension Qualified Code(s): I10 - Essential (primary) hypertension Code(s): I10 - Essential (primary) hypertension Status: Acute Assessment and Plan: Blood pressures were reviewed and they have been stable postoperatively. Continue antihypertensives and monitor. (3) Hypothyroidism: Qualifiers: Hypothyroidism type: acquired Qualified Code(s): E03.9 - Hypothyroidism, unspecified Code(s): E03.9 - Hypothyroidism, unspecified Status: Acute Assessment and Plan: Continue levothyroxine and TSH 0.270 repeat as an outpatient basis (4) Mixed hyperlipidemia: Code(s): E78.2 - Mixed hyperlipidemia Status: Acute Assessment and Plan: Continue pravastatin LFTs normal (5) Obstructive sleep apnea on CPAP: Code(s): G47.33 - Obstructive sleep apnea (adult) (pediatric) Status: Acute Assessment and Plan: CPAP will be provided for the patient to use while hospitalized. (6) Paroxysmal atrial fibrillation: Code(s): I48.0 - Paroxysmal atrial fibrillation Status: Acute Assessment and Plan: Currently in a sinus rhythm. Continue metoprolol. Resume Eliquis when okay with Dr. Richard. Plan Hypokalemia and hypomagnesemia replace ordered Subjective Date/time seen: 04/13/23 13:21 Interval history: Reports pain in her nurse and right knee working with therapy. No chest pain shortness of breath. Labs reviewed. Review of Systems Review of Systems: All systems reviewed & are unremarkable except as noted in HPI and below Exam Narrative: General: A well-developed female sitting up in bed in no acute distress. HEENT: PERRL, EOMI. Sclera anicteric. Oral mucosa moist. Oropharynx clear. Neck: Supple. Respiratory: Lungs are clear to auscultation bilaterally. Cardiovascular: Regular rate and rhythm with S1-S2. Gastrointestinal: Abdomen is soft, nontender, and nondistended with positive bowel sounds. Skin: Warm and dry. No rash or lesions on limited exam. Extremities: No cyanosis, clubbing, or edema. Radial and pedal pulses intact. Musculoskeletal: Right knee dressing is clean, dry, intact. No swelling or bruising noted. She is neurovascularly intact distal to the surgical site. Neurological: Alert. Cranial nerves 2-12 are grossly intact. No gross focal deficits to casual conversation. Psychiatric: Pleasant and cooperative with normal mood and affect. Judgment and insight intact. Objective Data Vital Signs Vital Signs: Vital Signs - 24 hr 04/12/23 14:15 04/12/23 15:15 04/12/23 16:47 Temperature 97.8 F 97.6 F Pulse Rate 63 60 Respiratory Rate 16 16 Blood Pressure 148/59 H 149/57 H Pulse Oximetry 94 99 Oxygen Delivery Room Air Fraction of Inspired Oxygen 04/12/23 16:01 04/12/23 19:44 04/12/23 20:00 Temperature 97.5 F L Pulse Rate 76 58 L 54 L Respiratory Rate 17 Blood Pressure 145/61 H Pulse Oximetry 96 Oxygen Delivery Fraction of Inspired Oxygen 04/12/23 22:09 04/13/23 00:07 04/13/23 00:00 Temperature 97.2 F L Pulse Rate 54 L 53 L Respiratory Rate 21 H 17 Blood Pressure 113/46 L Pulse Oximetry 97 Oxygen Delivery Autopap Fraction of Inspired Oxygen 04/13/23 02:00 04/13/23 04:00 04/13/23 05:52 Temperature 97.9 F Pulse Rate 65 51 L Respiratory Rate 18 16 Blood Pressure 121/55 L Pulse Oximetry 96 Oxygen Delivery Autopap Fraction of Inspired Oxygen
== END 2023-04-13 12:58 | disposition home or self-care (01) ==
LOC: ANHSURGERY 06:19 → ANH2MED 12:21
PROVIDERS: Physician Assistant; Physician Assistant Surgical; PCP Family Medicine; Visit Provider Orthopaedic Surgery
PROC: (CPT 27447; principal; 2023-04-12 07:30)
DX: M17.11 Unilateral primary osteoarthritis, right knee (principal); F41.9 Anxiety disorder, unspecified; K21.9 Gastro-esophageal reflux disease without esophagitis; I10 Essential (primary) hypertension; E03.9 Hypothyroidism, unspecified; K58.9 Irritable bowel syndrome, unspecified; F33.9 Major depressive disorder, recurrent, unspecified; E78.2 Mixed hyperlipidemia; I48.0 Paroxysmal atrial fibrillation; G47.33 Obstructive sleep apnea (adult) (pediatric); Z79.01 Long term (current) use of anticoagulants; Z79.51 Long term (current) use of inhaled steroids
CPT/HCPCS: 27447; 36415; 73560; 80048; 80076; 80307; 83036; 83735; 84439; 84443; 84480; 85025; 86850; 86900; 86901; 87081; 97110; 97116; 97161; 97165; 97530; 97535; A9270; C1713; C1776; J0171; J0690; J1100; J1170; J1885; J2270; J2405; J2704; J2795; J3010; J3370; J3475; J7030; J7120

== ENCOUNTER 2023-12-21 12:22 | Outpatient (CLI) | payer MEDICARE, SELFPAY ==
[2023-12-21 12:50] LABS: Hemoglobin 13.3 g/dL (12.0-15.0); Mean Corpuscular HGB Conc 32.4 g/dl (32-36); Mean Corpuscular Hemoglobin 29.6 pg (26-34); Mean Corpuscular Volume 91.3 fl (80-100); Platelet Count Result 378 k/mm3 (150-375); Red Blood Count 4.49 M/mm3 (4.2-5.4); Red Cell Distribution Width 12.8 % (11.5-14.5); White Blood Count 6.1 K/mm3 (4.5-10.0)
[2023-12-21 13:08] LABS: Alanine Aminotransferase 20 U/L (6-35); Albumin Level 4.4 g/dL (3.5-5.1); Alkaline Phosphatase 94 U/L (38-126); Anion Gap 7 mmol/L (4-12); Aspartate Amino Transferase 29 U/L (14-36); Bilirubin,Total 0.7 mg/dL (0.2-1.3); Blood Urea Nitrogen 11 mg/dL (7-17); Calcium 9.5 mg/dL (8.4-10.2); Carbon Dioxide 30 mmol/L (22-30); Chloride 102 mmol/L (98-107); Estimated Glomerular Filt Rate > 60; Glucose 83 mg/dL (65-110); Potassium 3.9 mmol/L (3.4-5.0); Sodium 139 mmol/L (137-145)
[2023-12-24 10:14] LABS: Immunoglobulin A 211 mg/dL (70-320); TTG IGA AB <1.0 U/mL (<15.0)
== END 2023-12-21 12:23 | disposition home or self-care (01) ==
PROVIDERS: PCP Family Medicine; Visit Provider Nurse Practitioner Family
DX: R19.7 Diarrhea, unspecified (principal)
CPT/HCPCS: 36415; 80053; 82784; 84443; 85027; 86364

== ENCOUNTER 2023-12-29 13:06 | Outpatient (CLI) | payer MEDICARE, SELFPAY ==
--- NOTE | ~2023-12-29 | DEXA_ITS ---
Bone Density Report Name: Eugenia Chang Age: 73 Sex: Female Ethnicity: White Date of : 1950 Indication: osteopenia; height loss; inflammatory bowel disease; prior fracture; hysterectomy; postmenopausal Referring Provider: YOVANNY DIAZ Study: Bone densitometry was performed. Exam Date: December 29, 2023 Accession number: [id number] Bone Density: Region BMD T-score Z-score Classification AP Spine (L1-L4) 1.058 0.1 2.4 Normal Femoral Neck (Left) 0.609 -2.2 -0.2 Osteopenia Total Hip (Left) 0.751 -1.6 0.1 Osteopenia Femoral Neck (Right) 0.589 -2.3 -0.4 Osteopenia Total Hip (Right) 0.666 -2.3 -0.6 Osteopenia Total Hip Mean 0.709 -2.0 -0.3 Osteopenia World Health Organization criteria for BMD impression classify patients as: Normal (T-score at or above -1.0), Osteopenia (T-score between -1.0 and -2.5), or Osteoporosis (T-score at or below -2.5). 10-year Fracture Risk(1): Major Osteoporotic Fracture 21% Hip Fracture 5.0% Reported Risk Factors: [place] (), Neck BMD=0.589, BMI=28.7, previous fracture (1) FRAX(R) Version 3.08. Fracture probability calculated for an untreated patient. Fracture probability may be lower if the patient has received treatment. Previous Exams: Region Exam Age BMD T-score BMD Change BMD Change Date g/cm2 vs Baseline vs Previous AP Spine(L1-L4) 12/29/2023 73 1.058 0.1 0.116* 0.069* 10/06/2019 69 0.990 -0.5 0.048* 0.048* 06/30/2017 67 0.942 -1.0 Total Hip(Left) 12/29/2023 73 0.751 -1.6 -0.011 -0.058* 10/06/2019 69 0.809 -1.1 0.047* 0.047* 06/30/2017 67 0.762 -1.5 Total Hip(Right) 12/29/2023 73 0.666 -2.3 -0.075* -0.093* 10/06/2019 69 0.759 -1.5 0.018 0.018 06/30/2017 67 0.741 -1.6 *Denotes significance at 95% confidence level, LSC for AP Spine = 0.022 g/cm2, LSC for Total Hip = 0.027 g/cm2 Clinical Information Provided by Patient: Has had a low trauma fracture Has used the following medications: Vitamin D, Calcium, MTV Has the following medical conditions: Inflammatory bowel diseases, Hysterectomy Patient maximum height was 64 Menopause Age: 32 Does not regularly consume dairy products Onset of menses at age 14 Number of children 2 Impression: The patient has low bone mass, based on the Right Total Hip T-score. The patient has an estimated ten-yea
--- NOTE | ~2023-12-29 | MM_ITS ---
EXAMINATION: MM screening fabiola BI w diogo HISTORY: Screening TECHNIQUE: Craniocaudal and mediolateral oblique 3-D tomosynthesis images were obtained and synthetic 2-D images were generated. CAD analysis was submitted and interpreted. COMPARISON: 04/22/2022 BREAST PARENCHYMAL COMPOSITION: There are scattered areas of fibroglandular density. FINDINGS: There is no evidence of suspicious mass, calcification, or architectural distortion to sugg est malignancy in either breast. There has been no suspicious interval change. IMPRESSION: 1. No mammographic evidence of malignancy. 2. Recommend routine screening mammography in one year. BI-RADS Category 1: Negative Reviewed, dictated and finalized at location A.
== END 2023-12-29 13:07 ==
LOC: MICIMG 13:07
PROVIDERS: PCP Family Medicine; Visit Provider Family Medicine
DX: Z12.31 Encounter for screening mammogram for malignant neoplasm of breast (principal); Z78.0 Asymptomatic menopausal state; M85.852 Other specified disorders of bone density and structure, left thigh; M85.851 Other specified disorders of bone density and structure, right thigh
CPT/HCPCS: 77063; 77067; 77080

== ENCOUNTER 2024-02-09 00:20 | Day surgery (SDC) | payer MEDICARE, SELFPAY ==
[2024-01-31 12:09] VITALS: BMI 28.5
--- NOTE | 2024-01-31 13:18 | PC.NURSE ---
Spoke with patient regarding medication XARELTO. Pt. verbalizes understanding that the last dose of XARELTO is to be taken on 02/06/2024 and the Endoscopist will instruct them when to restart after the procedure.
[2024-02-09 11:23] VITALS: BP 146/62; PULSE 60; RESP 18; TEMP 36.6; O2SAT 100
[2024-02-09] MEDS: LACTATED RINGERS 1,000 ML 150 ML IV CONT (11:34)
--- NOTE | 2024-02-09 11:35 | WPDANESEPPF ---
Anes - Initial Pre Proc Eval Procedure: Operation Date: 02/09/24 13:00 Proposed Procedures p Colonoscopy - Juan Ba MD Date/Time: 02/09/24 11:35 Surgeon: Juan Ba MD Pre Op Diagnosis: Diarrhea unspecified, Irritable bowel syndrome wit Patient Data Age: 73 Gender: F Height: 1.57 m Weight: 68.9 kg Last Vital Signs Temp 97.9 F 02/09/24 11:23 Pulse 60 02/09/24 11:23 Resp 18 02/09/24 11:23 BP 146/62 H 02/09/24 11:23 Pulse Ox 100 02/09/24 11:23 O2 Del Method Room Air 02/09/24 11:23 Allergies Allergy/AdvReac Type Severity Reaction Status Date / Time alendronate sodium Allergy Intermediate Hives Verified 02/09/24 11:22 lisinopril Allergy Mild dizzy Verified 02/09/24 11:22 nortriptyline AdvReac Severe Nightmare Verified 02/09/24 11:22 Home Medications Medication Instructions Recorded Confirmed Type multivitamin 1 tablet PO DAILY 09/29/19 01/31/24 History calcium carbonate (Calcium 600) 2,400 mg PO HS 12/01/19 01/31/24 History cholecalciferol (vitamin D3) 125 5,000 unit PO HS 12/01/19 01/31/24 History mcg (5,000 unit) tablet (Vitamin D3) clonazepam 0.5 mg tablet 0.5 mg PO QHS #30 tabs 07/22/23 01/31/24 Rx pravastatin 10 mg tablet 10 mg PO HS #100 tabs 09/13/23 01/31/24 Rx amlodipine 5 mg tablet See Rx Instructions .Route 11/16/23 01/31/24 Rx .COMPLEX #90 tabs metoprolol succinate 50 mg See Rx Instructions .Route 12/10/23 01/31/24 Rx tablet,extended release 24 hr .COMPLEX #90 tabs budesonide 3 mg 3 mg PO TID 01/31/24 01/31/24 History capsule,delayed,extended release magnesium oxide 600 mg PO HS 01/31/24 01/31/24 History rivaroxaban 20 mg tablet (Xarelto) 20 mg PO DAILY 01/31/24 01/31/24 History levothyroxine 88 mcg tablet See Rx Instructions .Route 02/01/24 02/09/24 Rx .COMPLEX #64 tabs Patient hx anesthesia problems: none Family hx anesthesia problems: none Results Review: All pre-operative results and documents have been reviewed as part of the pre-operative evaluation. [facility] Past Medical History Medical History (Updated 01/16/24 @ 03:58 by Christine Parra MD) Anxiety Atherosclerosis of aorta C. difficile colitis Clostridium difficile infection (11/2019) Degenerative joint disease Depression Gastroesophageal reflux disease History of rectal polyps Hypertension Hypothyroidism Irritable bowel syndrome Mixed hyperlipidemia Obstructive sleep apnea on CPAP Paroxysmal atrial fibrillation On metoprolol. She is not on long-term anticoagulation. Surgical History Surgical History History of appendectomy History of biopsy of temporal artery (04/2020) Negative for inflammation. History of carpal tunnel release History of cataract surgery History of cholecystectomy History of partial hysterectomy History of partial thyroidectomy History of spinal surgery (2017) L3-L4 herniated disc. History of total left knee replacement (2014) With revision in 2016. History of total right knee replacement (04/12/23) History of tubal ligation Family History Family History Mother Hypertension Uterine cancer High cholesterol Sibling PAD (peripheral artery disease) Hx of heart artery stent Father Family history of heart disease in male family member before age 55, Onset Age: 70 CHF (congestive heart failure) Sibling Hypertension High cholesterol Sibling Pancreatic cancer History of quadruple bypass CHF (congestive heart failure) Social History Social History Social History: The patient is and lives with her in [place]. 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 She smoked remotely in her teens. No alcohol or drug abuse. She designates her as her surrogate decision maker and
--- NOTE | 2024-02-09 12:00 | PM.HPGS ---
History of Present Illness History of Present Illness Consent: Risks, benefits, and alternatives have been discussed and questions answered. Patient agrees to proceed with procedure. Chief complaint: Diarrhea unspecified, Irritable bowel syndrome wit Narrative: Eugenia Chang is a 73 year old female with ibs-d, last colonoscopy 2014 but lately with more diarrhea, stool sample negative for infection, serology for celiac negative, tried questran in the past- s/p jose Review of Systems Review of Systems: All systems reviewed & are unremarkable except as noted in HPI and below [facility] Past Medical History Medical History (Updated 01/16/24 @ 03:58 by Christine Parra MD) Anxiety Atherosclerosis of aorta C. difficile colitis Clostridium difficile infection (11/2019) Degenerative joint disease Depression Gastroesophageal reflux disease History of rectal polyps Hypertension Hypothyroidism Irritable bowel syndrome Mixed hyperlipidemia Obstructive sleep apnea on CPAP Paroxysmal atrial fibrillation On metoprolol. She is not on long-term anticoagulation. Surgical History Surgical History (Updated 02/09/24 @ 12:01 by Juan Ba MD) History of appendectomy History of biopsy of temporal artery (04/2020) Negative for inflammation. History of carpal tunnel release History of cataract surgery History of cholecystectomy History of partial hysterectomy History of partial thyroidectomy History of spinal surgery (2017) L3-L4 herniated disc. History of total left knee replacement (2014) With revision in 2016. History of total right knee replacement (04/12/23) History of tubal ligation Family History Family History Mother Hypertension Uterine cancer High cholesterol Sibling PAD (peripheral artery disease) Hx of heart artery stent Father Family history of heart disease in male family member before age 55, Onset Age: 70 CHF (congestive heart failure) Sibling Hypertension High cholesterol Sibling Pancreatic cancer History of quadruple bypass CHF (congestive heart failure) Social History Social History Social History: The patient is and lives with her in [place]. 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 She smoked remotely in her teens. No alcohol or drug abuse. She designates her as her surrogate decision maker and she wishes to be a full code. Smoking status: Never smoker Second hand tobacco smoke exposure: No Alcohol intake: current Substance use: never Substance use type: does not use Do You Feel Safe in your Home?: Yes Lack of Transportation: No Lack of Food: Never True Current Housing: I Have Housing Concerned About Future Housing: No Difficulty Paying Gas/Electric Bills: No Difficulty Paying for Meds: No Currently Unemployed: No Education: High School Diploma/GED Difficulty w/ Childcare or Family Care: No Living arrangements: with family Occupation/Education: retired Gender identity (if verbalized by the patient): Female Sexual Orientation (if Verbalized by the Patient): Straight or Heterosexual Spiritual care concerns: No Agree to blood products: Yes Meds Home Medications and Allergies Home Medications Medication Instructions Recorded Confirmed Type multivitamin 1 tablet PO DAILY 09/29/19 01/31/24 History calcium carbonate (Calcium 600) 2,400 mg PO HS 12/01/19 01/31/24 History cholecalciferol (vitamin D3) 125 5,000 unit PO HS 12/01/19 01/31/24 History mcg (5,000 unit) tablet (Vitamin D3) clonazepam 0.5 mg tablet 0.5 mg PO QHS #30 tabs 07/22/23 01/31/24 Rx pravastatin 10 mg tablet 10 mg PO HS #100 tabs 09/13/23 01/31/24 Rx amlodipine 5 mg tablet See Rx Instructions .Route 11/16/23 01/31/24 Rx .COMPLEX #90 tabs metoprolol succinat
[2024-02-09 12:22] VITALS: BP 92/36; PULSE 62; RESP 16; O2SAT 100
[2024-02-09 12:32] VITALS: BP 100/43; PULSE 79; RESP 21; O2SAT 99
[2024-02-09 12:42] VITALS: BP 128/52; PULSE 58; RESP 13; O2SAT 100
== END 2024-02-09 12:55 | disposition home or self-care (01) ==
PROVIDERS: PCP Family Medicine; Referring Provider Nurse Practitioner Family; Visit Provider Internal Medicine Gastroenterology
PROC: 0DJD8ZZ Inspection of Lower Intestinal Tract, Via Natural or Artificial Opening Endoscopic (ICD-10-PCS; CPT 45378; principal; 2024-02-09 13:00)
DX: K58.0 Irritable bowel syndrome with diarrhea (principal); K57.30 Diverticulosis of large intestine without perforation or abscess without bleeding; K63.5 Polyp of colon; K64.8 Other hemorrhoids; I10 Essential (primary) hypertension; E03.9 Hypothyroidism, unspecified; E78.2 Mixed hyperlipidemia; F41.9 Anxiety disorder, unspecified; F32.A Depression, unspecified; K21.9 Gastro-esophageal reflux disease without esophagitis; G47.33 Obstructive sleep apnea (adult) (pediatric); I48.0 Paroxysmal atrial fibrillation; I70.0 Atherosclerosis of aorta; Z79.01 Long term (current) use of anticoagulants; Z99.89 Dependence on other enabling machines and devices; Z98.890 Other specified postprocedural states; Z90.49 Acquired absence of other specified parts of digestive tract; Z98.1 Arthrodesis status; Z98.51 Tubal ligation status; Z87.891 Personal history of nicotine dependence; Z86.010 Personal history of colon polyps; Z80.49 Family history of malignant neoplasm of other genital organs; Z80.0 Family history of malignant neoplasm of digestive organs; Z82.49 Family history of ischemic heart disease and other diseases of the circulatory system
CPT/HCPCS: 45380; 88305; J2704; J7120

== ENCOUNTER 2024-07-18 13:21 | Outpatient (CLI) | payer MEDICARE, SELFPAY ==
--- NOTE | ~2024-07-18 | CT_ITS ---
EXAMINATION:CT diagnostic chest wo con DATE: 07/18/2024 13:54 INDICATION: Shortness of breath. TECHNIQUE: Computed tomography (CT) of the chest was performed without intravenous contrast. Automate d exposure control and iterative reconstruction technique were employed. The dose-length product (DLP ) was 248.24 mGy-cm. COMPARISON: CT abdomen and pelvis 12/01/19 FINDINGS: There is a 2 mm nodule in left upper lobe, likely benign. There is no pneumonia or pleural effusion. Right thyroid lobe is absent. There are nodules in left thyroid lobe measuring up to 12 mm, likely not clinically significant. The heart size is normal. There are coronary artery calcification s. No pericardial effusion. There are changes of cholecystectomy. There is severe thoracic spondylosi s. There is mild chronic anterior wedging of multiple vertebral bodies. IMPRESSION: 1. No etiology for the patient's symptoms. Reviewed, dictated and finalized at location A.
== END 2024-07-18 13:22 | disposition home or self-care (01) ==
PROVIDERS: PCP Family Medicine; Visit Provider Internal Medicine Pulmonary Disease
DX: R06.02 Shortness of breath (principal)
CPT/HCPCS: 71250

== ENCOUNTER 2024-12-01 08:42 | Outpatient (CLI) | payer MEDICARE, SELFPAY ==
--- OUTSIDE RECORDS SUMMARY | 2024-12-01 08:58 | XMS_ITS | Referral Summary ---
Author Organization [facility] Address [address] [place] [address] Care Team Providers Care Vegetable Worker Name Role Phone Christine Parra MD Primary Care Provider + Source Comments [facility],non-owned Affiliates and Associated Physician Practices is amultiple site organization consisting of ambulatory clinics and hospital sitesin [place], [place], [place] and [place]. This disclosure is being madepursuant to the Care Everywhere program and may not contain all information available regarding this patient. Last updated 18.[facility] Allergies No known active allergies Medications * Be aware that medications may not be up to date on this document. Alwaysverify current medications with the patient. Medication Sig Dispensed Refills Start Date End Date Status LEVOTHYROXINE 10 MCG/ML PO CMPD SOLN (SYNTHROID) SOLN Take 10 mcg by mouth once daily Active NIFEdipine CR 24hr (ADALAT CC) 30 MG tablet Take 30 mg by mouth once daily Take on an empty stomach. Active METOPROLOL-HCTZ 50-25 MG Take 50 mg by mouth once daily Active pravastatin (PRAVACHOL) 10 MG tablet Take 10 mg by mouth at bedtime Active FLUoxetine (PROZAC) 20 MG/5ML oral solution Take 20 mg by mouth once daily Active Calcium Carbonate-Vit D-Min (CALCIUM 1200 PO) Take 1,200 mcg by mouth 2 times daily Active vitamin D, ergocalciferol, (DRISDOL) 1.25 MG (31614 UT) capsule Take 50,000 Units by mouth every 30 days Active Aspirin (ASPIR-LOW) 81 MG Take 81 mg by mouth once daily Active vitamin B-12 ([facility] VITAMIN B-12) 500 MCG tablet Take 6,000 mcg by mouth once daily Active Active Problems Problem Noted Date Diagnosed Date Osteoarthritis of knee 06/05/2015 Overview (07/24/2020): Osteoarthritis, knee Immunizations Name Administration Dates Next Due INFLUENZA VACCINE, CELL CULT URE, QUADR. (FLUCELVAX QUADRIVALENT; 6MO+), 0.5 ML (CCIIV4) 07/10/2019 INFLUENZA VACCINE, HIGH-DOSE , QUADR. (FLUZONE HIGH-DOSE QUADRIVALENT; 65Y+), 0.7 ML (HD-IIV4) 07/22/2020 INFLUENZA VACCINE, QUADR. (F LUZONE; FLULAVAL; FLUARIX; AFLURIA QUADRIVALENT; 6MO+), 0.5 ML (IIV4) 07/04/2015 Zoster Hzv Vacc Recombinant Inj Im 09/22/2019, Social History Tobacco Use Types Packs/Day Years Used Date Smoking Tobacco: Never Smokeless Tobacco: Never Alcohol Use Standard Drinks/Week Comments Never 0 (1 standard drink = 0.6 oz pur e alcohol) AUDIT-C Answer Date Recorded Frequency of Alcohol Consumption Never 08/28/2019 Average Number of Drinks Not on file 019 Frequency of Binge Drinking Not on file 10/2018 Sex and Gender Information Value Date Recorded Sex Assigned at Not on file Gender Identity Not on file Sexual Orientation Not on file Last Filed Vital Signs Vital Sign Reading Time Taken Comments Blood Pressure 154/70 07/24/2020 10:51 AM CDT Pulse 52 07/24/2020 10:51 AM CDT Temperature 36.6 C (97.8 F) 07/24/2020 10:51 AM CDT Respiratory Rate 16 08/28/2019 10:35 AM AIR TWISTER WINDER Oxygen Saturation 96% 08/28/2019 10:35 AM AIR TWISTER W[employer]ER Inhaled Oxygen Concentration - - Weight 83.7 kg (184 lb 8 oz) 07/24/2020 10:51 AM CDT Height 160 cm (5' 3 ) 07/24/2020 10:51 AM CDT Body Mass Index 32.68 07/24/2020 10:51 AM CDT Plan of Treatment Not on file Care Teams Vegetable Worker Relationship Specialty Start Date End Date Christine Parra MD [address] [place] [address] PCP - General 05/23/20
--- OUTSIDE RECORDS SUMMARY | 2024-12-01 08:58 | XMS_ITS | Clinical Summary ---
Author Organization [facility] Address [facility] [place] [address] Care Team Providers Care Agricultural Economics Teacher Name Role Phone Joe Chavez MD Primary Care Provider Allergies No known active allergies Medications pravastatin (PRAVACHOL) 10 mg tablet take 1 tablet by oral route every day 0 0 6 Active cholecalciferol (VITAMIN D3) 2,000 unit capsule take 1 by Oral route every day 0 0 4 Active levothyroxine sodium (TIROSINT) 100 mcg capsule take 1 capsule by oral route every day 0 0 4 Active calcium (CALCIO GERARDO) 500 mg tablet take 1 by Oral route every day 0 0 4 Active metoprolol XL (TOPROL-XL) 50 mg extended release tablet Take 2 tablets (100 mg total) by mouth daily 3 Active sertraline (ZOLOFT) 25 mg tablet 3 Active apixaban (ELIQUIS) 5 mg tablet Take 1 tablet (5 mg total) by mouth 2 (two) times a day 180 tablet 3 3 Active amLODIPine (NORVASC) 5 mg tablet Take 1 tablet (5 mg total) by mouth daily Active budesonide EC (ENTOCORT EC) 3 mg 24 hr capsule Take by mouth daily 4 Active rivaroxaban (XARELTO) 20 mg tablet Take 1 tablet (20 mg total) by mouth daily with breakfast 90 tablet 3 4 01/17/20 25 Active Active Problems Problem Noted Date Diagnosed Date Anticoagulation management encounter 05/23/2023 S/P ablation of atrial fibrillation 05/23/2023 Closed fracture of distal end of radius 12/26/19 23 Fracture of forearm 12/25/2022 Low back pain 12/25/2022 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 Maintaining sinus rhythm without antiarrhythmic medications. No changes to management today The patient has a PMQ3FP1-MYDa score of 3. Given this, I recommended continued anticoagulation for thromboprophylaxis, about which she was disappointed. A newer indication for percutaneous left atrial appendage occlusion is personal preference (a IIB indication), and I provided her with material to review. The patient has inquired about following up with her part maker, which is closer to her home. I have no problem with this, and recommended that she have an ECG performed at least yearly. I asked her to contact me if she had any questions or if additional follow-up is needed. Assessment & Plan (05/23/2023 12:30 PM CDT): The patient is three-month status post ablation for atrial fibrillation, doing well. Maintaining sinus rhythm without antiarrhythmic drug therapy. No changes to management at this time. The patient has a XCP8VD7-KCSt score of 3. I have therefore recommended continued anticoagulation. The patient will follow-up with me in 6 months for an office visit and twelve- lead ECG. Assessment & Plan (12/08/2022 10:41 PM CDT): Highly symptomatic, drug-refractory atrial fibrillation. Occurring in context of structurally normal heart. Reviewed management options with patient, including alternative AAD therapy and catheter ablation. Pt prefers to proceed with ablation. I reviewed procedural steps, risks/benefits, recovery and expected outcomes after AF ablation in detail. Pt understands and wishes to proceed. --Atrial fibrillation ablation w/anesthesia. --Continue flecainide 100 mg BID for now. Anticipate stopping during f/u after ablation. --Continue metoprolol XL 100 mg daily. --Continue apixaban 5 mg BID, hold starting the evening prior to procedure. Hypothyroidism 08/16/2020 Near syncope 08/16/2020 Osteoarthritis of knee 06/05/2015 Overview (01/01/2017): Osteoarthritis, knee Encounters Date Type Department Care Team Description 11/22/2024 9:08 AM SECURITY INCIDENT RESPONSE SPECIALIST - 11/22/2024 11:59 PM SECURITY INCIDENT RESPONSE SPECIALIST Hospital Encounter [facility] [address] [place] [address] Dyspnea, unspecified type Discharge Disposition: Discharge to home or self care 11/22/2024 8:20 AM SECURITY INCIDENT RESPONSE SPECIALIST Office Visit [facility] - [facility] [address] [facility] [address] [place] [address] Pau Emanuel MD Muscle tension dysphonia (Primary Dx); Paralysis of vocal cords and larynx, unilateral; Dyspnea, unspecified type; Thyroid nodule from Last 3 Months Immunizations Immunization Administration Dates Next Due Influenza, Quadrivalent, Katarina l Culture-based MDCK, Antibiotic Free, Intramuscular 07/10/2019 Influenza, Quadrivalent, Hig h Dose, Preservative Free, Intrr 07/22/2020 Influenza, Quadrivalent, Spl it, Preservative Free, Intramuscular 07/04/2015 Influenza, Trivalent, High D ose, Split, Preservative Free, Intramuscular 07/06/2017 Influenza, Trivalent, IM (MDV) 07/06/2018 Influenza, Trivalent, Preservative Free, Intramu scular 10/18/2013 Pneumococcal Conjugate PCV 13 07/06/2017 Pneumococcal Polysaccharide PPV23 07/06/2018 ZOSTER Recombinant 09/22/2019,07/10/2019 Surgical History Surgery Date Site/Laterality Comments APPENDECTOMY Appendectomy PARTIAL HYSTERECTOMY partial hysterectomy ELBOW SURGERY elbow surgery CHOLECYSTECTOMY Cholecystectomy KNEE ARTHROSCOPY Left Arthroscopy knee CARPAL TUNNEL RELEASE Carpal tunnel release OTHER SURGICAL HISTORY half of thyroid removed OTHER SURGICAL HISTORY Arthroplasty, total knee OTHER SURGICAL HISTORY Incise knee joint for infection CATARACT EXTRACTION 2017 HYSTERECTOMY 1982 JOINT REPLACEMENT 2014, 2016 LASIK 2017 SPINE SURGERY 2018 Medical History Medical History Date Comments Disorder of thyroid Thyroid dise ase Hx Other Medical Headache, migra ine Hypertension Hypertension Hx Other Medical gerd Anxiety Depression Migraines Family History Medical History Relation Name Comments Clotting disorder Brother 1 Carlitos Coronary artery disease Brother 1 Carlitos Dwayne nary artery disease; Cancer Brother 2 Anish Early Brother 2 Anish Heart attack Brother 2 Anish Cancer Brother 3 Anish Early Brother 3 Anish Heart attack Brother 3 Anish Cancer Father Antonio Early Father Antonio Heart attack Father Antonio Cancer Mother Sasha Hypertension Mother Sasha Obesity Mother Sasha Pancreatic cancer Mother Sasha Cancer, pa ncreas; Diabetes Other 1 Family history of diabetes; Hypertension Other 2 Family history of Hypertension; Arthritis Other 3 Family history of arthritis; Gout Other 4 Family history of Gout; Blood Clot Other 5 Family history of blood clots; Diabetes Sister 1 Ghislaine Hypertension Sister 1 Ghislaine Obesity Sister 1 Ghislaine Diabetes Sister 2 Ghislaine Hypertension Sister 2 Ghislaine Obesity Sister 2 Ghislaine Relation Name Status Comments Brother 1 Carlitos Brother 2 Anish Brother 3 Anish Alive Father Antonio Alive Mother Sasha Other 1 Other 2 Other 3 Other 4 Other 5 Sister 1 Ghislaine Sister 2 Ghislaine Alive Social History Tobacco Use Types Packs/Day Years Used Date Smoking Tobacco: Never Smokeless Tobacco: Never Tobacco Cessation:Counseling Given: Not Answered Alcohol Use Standard Drinks/Week Comments No 0 (1 standard drink = 0.6 oz pur e alcohol) AUDIT-C Answer Date Recorded Q1: How often do you have a drink containing alc ohol? Never 01/10/2022 Average Number of Drinks Not on file 022 Q3: How often do you have si x or more drinks on one occasion? Never 01/10/2022 Personal Safety Answer Date Recorded Have you ever been in or are you currently in a harmful physical or emotional relationship or is someone making you feel afraid or unsafe? Denies 12/17/2022 Comments Unknown Sex and Gender Information Value Date Recorded Sex Assigned at Not on file Legal Sex Female 2:09 AM SECURITY INCIDENT RESPONSE SPECIALIST Gender Identity Female 11/24/2020 10:12 AM SECURITY INCIDENT RESPONSE SPECIALIST Sexual Orientation Straight 11/24/2020 10 :12 AM SECURITY INCIDENT RESPONSE SPECIALIST Obstetrics History Last Filed Vital Signs Vital Sign Reading Time Taken Comments Blood Pressure 152/76 11/22/2024 8:14 AM SECURITY INCIDENT RESPONSE SPECIALIST Pulse 65 11/22/2024 8:14 AM SECURITY INCIDENT RESPONSE SPECIALIST Temperature 36.8 C (98.2 F) 12/25/2022 12:16 PM CDT Respiratory Rate 22 12/25/2022 12:16 PM CDT Oxygen Saturation 97% 01/17/2024 11:24 AM CDT Inhaled Oxygen Concentration - - Weight 75 kg (165 lb 6.4 oz) 11/22/2024 8:14 AM SECURITY INCIDENT RESPONSE SPECIALIST Height 157.5 cm (5' 2 ) 11/22/2024 8:14 AM SECURITY INCIDENT RESPONSE SPECIALIST Body Mass Index 30.25 11/22/2024 8:14 AM SECURITY INCIDENT RESPONSE SPECIALIST Plan of Treatment Health Maintenance Due Date Last Done Comments Breast Cancer Screening-Mammogram 1950 Colon Cancer Screening-Colonoscopy 1950 Depression Screening 1950 Fall Risk Assessment 1950 Hepatitis C Screening 1950 Osteoporosis Screening-Bone Density Scan 1951 DTaP/Tdap/Td Vaccine (1 - Tdap) 1962 Hepatitis B Screening 1969 Well Visit 65+ 2016 Influenza Vaccine (#1) 2024 0, 07/10/2019, 07/06/2018, Additional history exists Pneumococcal vaccine 65+ Completed 07/06/2018, 06/27 Zoster Vaccine Completed 09/22/2019, 07/10/2019 Medical Devices Implanted Type Area Filter Tank Tender Helper Device Identifier Shelf Expiration Date Model / Serial / Lot [employer] Vascade Mvp 6-12fr Venous Closure [id number] - [id number] - [id number] Implanted:Qty: 1 on 12/17/2022 by Miguel Angel Garay III, MD at [facility] Collagen [employer] 09/10/2024 800-612C-1 [id number] / [id number] / [id number] [employer] Vascade Mvp 6-12fr Venous Closure [id number] - [id number] - [id number] Implanted:Qty: 1 on 12/17/2022 by Miguel Angel Garay III, MD at [facility] [employer] 09/10/2024 800-612C-1 0U / [id number] / [id number] [employer] Vascade Mvp 6-12fr Venous Closure [id number] - [id number] - [id number] Implanted:Qty: 1 on 12/17/2022 by Miguel Angel Garay III, MD at [facility] [employer] 09/10/2024 800-612C-1 0U / [id number] / [id number] Procedures Procedure Name Priority Date/Time Associated Diagnosis Comments XR CHEST PA LATERAL 2 VIEWS Schedule Routine, Read Routine (OP Routine) 11/22/2024 9:21 AM SECURITY INCIDENT RESPONSE SPECIALIST Dyspnea, unspecified type from Last 3 Months Results * XR Chest PA Lateral 2 Views (11/22/2024 9:21 AM SECURITY INCIDENT RESPONSE SPECIALIST) Anatomical Region Laterality Modality Body, Chest N/A Computed Radiogr aphy 11/22/2024 9:24 AM SECURITY INCIDENT RESPONSE SPECIALIST Impressions 11/22/2024 9:24 AM SECURITY INCIDENT RESPONSE SPECIALIST No prior comparison. Right upper quadrant surgical clips. The lungs are clear without pneumothorax, pleural effusion, focal consolidation, or pulmonary edema. The cardiomediastinal contours are within normal limits. Electronically signed by: Hemant Glez M.D. Narrative 11/22/2024 9:24 AM SECURITY INCIDENT RESPONSE SPECIALIST EXAMINATION: 2 view chest radiograph Procedure Note Hemant Glez MD - 11/22/2024 EXAMINATION: 2 view chest radiograph IMPRESSION: No prior comparison. Right upper quadrant surgical clips. The lungs are clear without pneumothorax, pleural effusion, focal consolidation, or pulmonary edema. The cardiomediastinal contours are within normal limits. Electronically signed by: Hemant Glez M.D. Pau Emanuel MD IMG XR PROCEDURES Fi nal Result from Last 3 Months Insurance [employer] Member Subscriber Plan / Payer ( fective 2022-Present) Name:Eugenia Chang Relation to Subscriber:Self Name:Eugenia Chang Payer ID:[id number] (NAIC) Type:[facility] MEDICARE Address: [place] [id number] MEDICARE SOLUT[employer] Member Subscriber Plan / Payer ( fective 2022-) Name:Eugenia Chang Relation to Subscriber:Self Name:Eugenia Chang Payer ID:[id number] (NAIC) Type:[facility] MEDICARE Address: [place] [id number] MEDICARE SOLUTIONS Care Teams Agricultural Economics Teacher Relationship Specialty Start Date End Date Joe Chavez MD [address] [facility] [address] [place] [address] PCP - General Family Medicine 11/22/24
--- OUTSIDE RECORDS SUMMARY | 2024-12-01 08:58 | XMS_ITS | Clinical Summary ---
Author Organization [facility] Address [address] [place] [address] Care Team Providers Care Superintendent Pier Name Role Phone Christine Parra MD Primary Care Provider + Source Comments [facility],non-owned Affiliates and Associated Physician Practices is amultiple site organization consisting of ambulatory clinics and hospital sitesin [place], [place], [place] and [place]. This disclosure is being madepursuant to the Care Everywhere program and may not contain all information available regarding this patient. Last updated 18.[facility] Allergies No known active allergies Medications * [...] Active vitamin D, ergocalciferol, (DRISDOL) 1.25 MG (48396 UT) capsule Take 50,000 Units by mouth [...] CDT Respiratory Rate 16 08/28/2019 10:35 AM MENTAL HYGIENIST Oxygen Saturation 96% 08/28/2019 10:35 AM MENTAL HYGIENIST Inhaled Oxygen Concentration - - Weight 83.7 kg (184 lb 8 oz) 07/24/2020 10:51 AM CDT Height 160 cm (5' 3 ) 07/24/2020 10:51 AM CDT Body Mass Index 32.68 07/24/2020 10:51 AM CDT Plan of Treatment Health Maintenance Due Date Last Done Comments BONE DENSITY TESTING 1950 COLOGUARD (AGES 45-75) - COL ON CA SCREENING 1951 COLON MONITORING 1951 COLONOSCOPY - COLON CA SCREENING 1951 CT COLONOGRAPHY - COLON CA SCREENING 1951 Colorectal Cancer Screening 1951 FIT - COLON CA SCREENING 1951 FLEX SIG - COLON CA SCREENING 1951 MAMMOGRAM 1951 HEPATITIS C SCREENING 04/11/1969 DTAP/TDAP/TD VACCINES (1 - Tdap) 1970 PNEUMOCOCCAL VACCINE 50+ (1 of 1 - PCV) 2001 SCREENING FOR DIABETES 08/28/2019 COVID-19 VACCINE ( - 2023-2 5 season) 2024 INFLUENZA VACCINE (#1) 2024 0, 07/10/2019, 07/04/2015 DEPRESSION SCREENING 09/27/2024 MEDICARE AWV CALENDAR YEAR 2024 Respiratory Syncytial Virus (RSV) Vaccine Pt: or over 60 yrs (1 - 1-dose 75+ series) 2026 ZOSTER VACCINE Completed 09/22/2019, 07/13/2019 HEPATITIS B VACCINE Aged Out No longe r eligible based on patient's age to complete this topic HIB VACCINE Aged Out No longer eligi ble based on patient's age to complete this topic HPV VACCINE Aged Out No longer eligi ble based on patient's age to complete this topic MENINGOCOCCAL (Group B) VACCINE Aged Out No longer eligible b ased on patient's age to complete this topic MENINGOCOCCAL VACCINE Aged Out No albaro elvis eligible based on patient's age to complete this topic Care Teams Superintendent Pier Relationship Specialty Start Date End Date Christine Parra MD [address] [facility] [address] [place] [address] PCP - General 05/23/20
--- OUTSIDE RECORDS SUMMARY | 2024-12-01 08:58 | XMS_ITS | Data Portability ---
Author Organization [place] [facility], Main Office Address [address] [place] [address] Care Team Providers Care Box Puller Name Role Phone YOVANNY DIAZ Primary Care Provider YOVANNY DIAZ Referring Provider [phone] Assessment Encounter Date Assessment Date Assessment LastModified by Organization Details LastModified Time 04/26/2023 04/26/2023 HPI: Patient returns. She is 2 weeks out from right total knee arthroplasty. Overall doing well. She does not feel the oxycodone is giving her any pain relief. She would like to switch to hydrocodone 7.5 which she has used in the past and thinks they worked better. She is back on her chronic Eliquis 5 mg b.i.d.. We are not use Celebrex on her because of this. She did finish up her antibiotics. She has been taking Tylenol. She is doing therapy here at our office. Physical exam: Patient's incision is well healed. Dressing was removed. She has no increased swelling in either lower extremity. Minimal bruising noted. Range of motion is from 0-105 degrees. Impression: Patient is 2 weeks out right total knee arthroplasty. Overall range of motion is doing well. I encouraged her to continue to work hard on her motion. Hopefully the hydrocodone will improve her pain control. She is going to have to keep track of the mg Tylenol she is taking per day so that she is not taking more than 4000 mg we discussed this as well. She is hoping just to take the hydrocodone and avoid the extra Tylenol completely. She can transition to the cane as comfort allows. We will see her back in 2 weeks for re-evaluation. Not available 04/26/2023 14:24:46 05/10/2023 05/10/2023 HPI: Patient returns. She is 1 month out right total knee arthroplasty. She is still having quite a bit of soreness in the knee. She has been taking hydrocodone 7.5 which do help. Again she did not feel the oxycodone was giving her much improvement. She is walking little bit in the house without the cane at this point. She does use out about. She is doing therapy here at the office. She is on her chronic dosing of Eliquis, therefore not able do Celebrex with her. Physical exam: Patient is walking relatively well with a cane. Incision is well healed. She did have 2 sutures pits at the mid incision that looked very benign. There is no increased swelling in either lower extremity. Range of motion is from 0-120 degrees. Impression: Patient is doing well 1 month out right total knee. I encouraged her to continue work hard on getting all of her flexion back. I have refilled her pain pills today. We will see her back in 2 weeks with x-rays of the knee at that time [email or web address] Not available 05/10/2023 14:37:50 05/24/2023 05/24/2023 HPI: Patient returns. She is now 6 weeks out from right total knee arthroplasty. She is doing very well. Only complaint is having little bit of stiffness in the knee at times. She has been starting to ride her exercise bike at her house and thinks this helps a lot with her symptoms. She still uses a cane when she goes out of the house for a little safety but not really bearing any weight into it. Overall her pain level is minimum. She is very happy her results at this point. Physical exam: Patient's incision is well healed. Range of motion is from 0-135 degrees. She has excellent stability in both flexion and extension. There is no increased swelling in either lower extremity. She walks very well today. Impression: Patient is doing very well 6 weeks out right total knee arthroplasty. I encouraged her continue with her home exercise program for the next 6 months so that she does not lose any of her motion in that time. She may stop the baby aspirin as well as any other medications are we put her on through surgery and may resume any medications that were stopped. Long-term risk of infection was discussed. This point patient is doing very well so we can see her back at her 1 year follow-up or sooner if she has problems. Not available 05/24/2023 14:36:18 06/21/2023 06/21/2023 The patient has a new onset of knee pain status post total knee arthroplasty 10 weeks ago. She was doing very well she may have overdone it a little bit may have start-up a small bleed within the knee joint she is on blood thinners and had a slight sudden strain to the knee. I think this will calm down with time otherwise knee looks benign. She is going to continue to work on her exercise routine she cannot take anti-inflammator ies due to the fact that she is on blood thinners we talked about using heat working on her therapy and then icing afterwards. She will continue work on range of motion and gentle strengthening not overdo it for now. We will have her see Dr. Richard next week for her next recheck to make sure everything is still looking okay. She was reassured by the visit. She voiced understanding agrees above plan she will call for any further problems difficulties or questions. [email or web address] Not available 06/21/2023 11:12:58 06/30/2023 06/30/2023 HPI: Patient returns. She is here follow-up of right knee pain. She injured 2 weeks ago when she was going down steps at home and lost her balance. She had a quick sudden flexion to the right knee. She is about 80 days out from her right total knee arthroplasty. Prior to this knee was doing very well. She saw Ron last week, he felt that the knee was just aggravated no significant physical exam findings were found. She states over last week the knee has gotten even better to the point now where she is having minimal discomfort. Physical exam: A 73-year-old female alert pleasant. She is walking very well today. She has no limp. Has no effusion right knee. Incision is well healed. Range of motion is from 0-130 degrees. She has had excellent stability in both flexion extension. She has little bit of pain with full flexion but overall mild. Impression: Patient had a stumble down steps 2 weeks ago where she had a quick sudden flexion to the right knee. It has improved very quickly. At this point knee is stable and has good range motion. She is comfortable and happy with the way it feels. We will see her back at her 1 year follow-up. 20 minutes was spent treatment patient than half this in [id number] conversation Not available 06/30/2023 09:18:30 Plan of Treatment Reminders Order Date Submit Date Provider Last Modified By Organization Details Last Modified Time Details Appointments None record ed. Lab None record ed. Referral None record ed. Procedures None record ed. Surgeries None record ed. Imaging XR, knee 023 05/24/20 23 [email or web address] [facility], [address], [place], [address], 21:36:05 Medication Orders None record ed. Patient TargetsNo targets recorded. Patient InstructionsNo instructions recorded. Reason for Referral None Reported. Results Created Date Observation Date Name Description Value Unit Range Abnormal Flag Note LastModifiedBy Organization Detail LastModifiedTime 04/12/2004/12/2023 XR, knee No observ ation record ed. [email or web address] [facility] [address], [place], [address], 04/13/2023 13:06:49 05/24/20 XR, knee No observ ation record ed. [facility] [address], [place], [address], 05/24/2023 14:34:50 Result Notes None recorded. 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 977751772 Active Not Available [facility] 3 13:53:24 Low back pain 947334242 Active Not Available [facility] 3 13:53:24 Knee pain Active Not Available [facility] 3 13:53:24 Pain of left hip joint 0538024567625 00 Active 2021 Not Available [facility] 13:53:24 Fracture of forearm 91360153 Active Not Available [facility] 3 13:53:24 Pain of right knee joint 6487754386562 00 Active 2022 Anai Catalan TRAMAINEHailee arreola, [facility] [employer] [facility] 3 15:50:59 Osteoarthr itis of right knee joint 8248599803375 00 Active 2022 TRAMAINE FallonHailee arreola, [facility] [employer] [facility] 3 16:13:37 Problem Notes None recorded. Procedures Surgical History Date Name Laterality Status Provider Name and Address Organization Details Recorded Time procedure on gallbladder completed Not Available [facility] 11/25/2022 13:52:37 procedure on elbow completed Not Available [facility] 11/25/2022 13:52:37 Thyroid Surgery completed Not Available [facility] 11/25/2022 13:52:37 Back Surgery completed Not Available [facility] 11/25/2022 13:52:37 Cataract Surgery completed Not Available [facility] 11/25/2022 13:52:37 Partial hysterectomy completed Not Available [facility] 11/25/2022 13:52:37 Appendectomy completed Not Available [facility] 11/25/2022 13:52:37 Knee Surgery completed Not Available [facility] 11/25/2022 13:52:37 Carpal tunnel surgery completed Not Available [facility] 11/25/2022 13:52:37 Temporal Artery Biopsy completed EMILE Fallon [facility] [employer] [facility] 12/03/2022 15:50:35 Imaging Results Imaging Date Name Status LastModified by Organiz ation Details LastModified Time 04/12/2023 XR, knee completed [facility] [address], [place], [address], 04/13/2023 13:06:49 05/24/2023 XR, knee completed [facility] [place] [address], [place], [address], 05/24/2023 14:34:50 Procedure Notes None recorded. Medical Equipment None Reported. Medications Name Sig Start Date Stop Date Status Note LastModified by Organization Details LastModified Time albina rosario 8.6-50mg tablets TAKE 2 TABLETS BY MOUTH TWICE DAILY 05/10 completed Not Available Not Available Not Available pain rel x/s (acetaminop hen)500mg c TAKE 2 TABLETS BY MOUTH EVERY 6 HOURS 05/10 completed Not Available Not Available Not Available nifedipine ER 30 mg tablet,exte nded release 24 hr 02/11 completed Not Available Not Available Not Available celecoxib 200 mg capsule 02/11 completed Not Available Not Available Not Available fluoxetine 40 mg capsule Take 1 capsule every day by oral route. 03/13 completed Not Available Not Available Not Available amoxicillin 500 mg capsule TAKE 1 CAPSULE BY MOUTH EVERY 8 HOURS UNTIL FINISHED 02/11 completed Not Available Not Available Not Available prednisone 10 mg tablet 02/11 completed Not Available Not Available Not Available triazolam 0.25 mg tablet PLEASE SEE ATTACHED FOR DETAILED DIRECTION S 03/13 completed Not Available Not Available Not Available trazodone 50 mg tablet TAKE 1 TABLET BY MOUTH EVERY DAY AT BEDTIME 06/30 completed Not Available Not Available Not Available azithromyci n 250 mg tablet 02/11 completed Not Available Not Available Not Available IBU 800 mg tablet 02/11 completed Not Available Not Available Not Available metoprolol tartrate 100 mg tablet 02/11 completed Not Available Not Available Not Available metoprolol succinate ER 50 mg tablet,exte nded release 24 hr active Not Available Not Available Not Available hydrocodone 5 mg-acetamin ophen 325 mg tablet TAKE 1 TABLET BY MOUTH EVERY 8 HOURS NEEDED FOR PAIN active Not Available Not Available No t Available alendronate 70 mg tablet 02/11 completed Not Available Not Available Not Available clonazepam 0.5 mg tablet TAKE 1 TABLET BY MOUTH EVERY DAY AT BEDTIME active Not Available Not Available No t Available nifedipine ER 30 mg tablet,exte nded release Take 1 tablet every day by oral route. 02/11 completed Not Available Not Available Not Available amlodipine 5 mg tablet active Not Available Not Available Not Available tramadol 50 mg tablet 02/11 completed Not Available Not Available Not Available amoxicillin 500 mg tablet Take 4 tablet 1 hour before dental procedure 02/11 completed Not Available Not Available Not Available nortriptyli ne 25 mg capsule TAKE 1 CAPSULE BY MOUTH EVERY NIGHT AT BEDTIME 12/09 completed Not Available Not Available Not Available levothyroxi ne 100 mcg tablet active Not Available Not Available Not Available oxycodone-a cetaminophe n 5 mg-325 mg tablet 02/11 completed Not Available Not Available Not Available levothyroxi ne 88 mcg tablet active Not Available Not Available Not Available pravastatin 10 mg tablet active Not Available Not Available Not Available temazepam 15 mg capsule 02/11 completed Not Available Not Available Not Available Kenalog 10 mg/mL suspension for injection in office 03/24 completed [facility]: [phone] Not Available Not Available Not Available hydrocodone 7.5 mg-acetamin ophen 325 mg tablet TAKE 1 TABLET BY MOUTH EVERY 3 HOURS NEEDED 06/30 completed Not Available Not Available Not Available cephalexin 500 mg capsule TAKE 1 CAPSULE BY MOUTH EVERY 6 HOURS 04/26 completed Not Available Not Available Not Available pantoprazol e 40 mg tablet,regi yed release 02/10 completed Not Available Not Available Not Available hyoscyamine sulfate 0.125 mg tablet TAKE 1 TABLET BY MOUTH THREE TIMES DAILY NEEDED 02/11 completed Not Available Not Available Not Available fluoxetine 20 mg tablet 02/11 completed Not Available Not Available Not Available dexamethaso ne 4 mg tablet TAKE 2 TABLETS BY MOUTH ON DAY 1, 2 TABLETS ON DAY 2, AND 1 TABLET ON DAY 3 03/13 completed Not Available Not Available Not Available warfarin 5 mg tablet active Not Available Not Available No t Available flecainide 50 mg tablet 03/24 completed Not Available Not Available Not Available flecainide 100 mg tablet 12/03 completed Not Available Not Available Not Available sertraline 25 mg tablet TAKE 1 TABLET BY MOUTH TWICE DAILY active Not Available Not Available No t Available omeprazole 20 mg capsule,del ayed release 02/11 completed Not Available Not Available Not Available raloxifene 60 mg tablet 02/11 completed Not Available Not Available Not Available diclofenac sodium 75 mg tablet,regi yed release 02/11 completed Not Available Not Available Not Available hydrochloro thiazide 25 mg tablet 12/03 completed Not Available Not Available Not Available furosemide 20 mg tablet 02/11 completed Not Available Not Available Not Available gabapentin 100 mg capsule TAKE 1 CAPSULE BY MOUTH AT BEDTIME 02/01 completed Not Available Not Available Not Available metoprolol succinate ER 25 mg tablet,exte nded release 24 hr Take 1 tablet every day by oral route. 03/24 completed Not Available Not Available Not Available budesonide DR - ER 3 mg capsule,del ayed,extend ed release TAKE 3 CAPSULES BY MOUTH DAILY active Not Available Not Available No t Available methylpredn isolone 4 mg tablets in a dose pack FOLLOW PACKAGE DIRECTION S 03/24 completed Not Available Not Available Not Available celecoxib 100 mg capsule TAKE 1 CAPSULE BY MOUTH DAILY AT 8 AM 04/26 completed Not Available Not Available Not Available cefdinir 300 mg capsule 02/10 completed Not Available Not Available Not Available fluoxetine 20 mg capsule TAKE 1 CAPSULE BY MOUTH DAILY 12/03 completed Not Available Not Available Not Available colestipol 1 gram tablet TAKE 1 TABLET BY MOUTH TWICE DAILY active Not Available Not Available No t Available dicyclomine 10 mg capsule 02/11 completed Not Available Not Available Not Available diazepam 5 mg tablet TAKE 1 TABLET BY MOUTH TWICE DAILY NEEDED FOR MUSCLE SPASM 02/11 completed Not Available Not Available Not Available amoxicillin 875 mg-potassiu m clavulanate 125 mg tablet TAKE 1 TABLET BY MOUTH TWICE DAILY FOR 7 DAYS 12/03 completed Not Available Not Available Not Available oxycodone 5 mg tablet TAKE 1 TABLET BY MOUTH EVERY 4 HOURS 05/10 completed Not Available Not Available Not Available moxifloxaci n 0.5 % eye drops 02/11 completed Not Available Not Available Not Available ciprofloxac in 0.3 %-dexametha sone 0.1 % ear drops,suspe nsion SHAKE LIQUID AND INSTILL 4 DROPS TO LEFT EAR TWICE DAILY FOR 7 DAYS 03/13 completed Not Available Not Available Not Available cholestyram ine (with sugar) 4 gram oral powder MIX 4 GIVE OF POWDER WITH 4 OZ OF WATER TWICE DAILY. TAKE WITH FOOD AND AVOID OTHER MEDS 1 HOURS BEFORE AND 4-6 HOURS AFTER DOSE active Not Available Not Available No t Available eszopiclone 3 mg tablet TAKE 1 TABLET BY MOUTH ONCE DAILY AT BEDTIME active Not Available Not Available No t Available levalbutero l HFA 45 mcg/actuati on aerosol inhaler 05/10 completed Not Available Not Available Not Available chlorhexidi ne gluconate 0.12 % mouthwash RINSE WITH 1/2 OUNCE (15 MILLILITE RS) BY MOUTH FOR 30 SECONDS AND SPIT TWICE DAILY FOR 2 WEEKS 03/13 completed Not Available Not Available Not Available aspirin 03/13 completed Not Available Not Available Not Available calcium 2021 active Not Available Not Available Not Avai lable Vitamin D3 12/09 completed Not Available Not Available Not Available lidocaine (PF) 5 mg/mL (0.5 %) injection solution In office injection administe red by the provider 03/13 completed Not Available Not Available Not Available Durezol 0.05 % eye drops 02/11 completed Not Available Not Available Not Available Prevnar 13 (PF) 0.5 mL intramuscul ar syringe TO BE ADMINISTE RED BY PHARMACIS T FOR IMMUNIZAT ION active Not Available Not Available No t Available Xarelto 10 mg tablet 02/11 completed Not Available Not Available Not Available ropivacaine (PF) 5 mg/mL (0.5 %) injection solution in office 02/01 completed [facility] [phone] Not Available Not Available Not Available Xarelto 20 mg tablet active Not Available Not Available No t Available Ilevro 0.3 % eye drops,suspe nsion 02/11 completed Not Available Not Available Not Available Eliquis 5 mg tablet active Not Available Not Available No t Available Fluzone High-Dose [id number] (PF) 180 mcg/0.5 mL intramuscul ar syringe TO BE ADMINISTE RED BY PHARMACIS T FOR IMMUNIZAT ION active Not Available Not Available No t Available Shingrix (PF) 50 mcg/0.5 mL intramuscul ar suspension, kit TO BE ADMINISTE RED BY PHARMACIS T FOR IMMUNIZAT ION 02/11 completed Not Available Not Available Not Available Flucelvax Quad 60 mcg (15 mcg x 4)/0.5 mL intramuscul ar susp TO BE ADMINISTE RED BY PHARMACIS T FOR IMMUNIZAT ION 02/11 completed Not Available Not Available Not Available Vitals Date Recorded Body height Provider Name an d Address Organization Details Last Updated DateTime 04/26/2023 157.48 cm Anai Catalan [facility] [employer] [facility] 04/26/2023 13:40:08 Date Recorded Body height Provider Name an d Address Organization Details Last Updated DateTime 05/10/2023 157.48 cm Anai Catalan [facility] [employer] [facility] 05/10/2023 14:08:11 Date Recorded Body height Provider Name an d Address Organization Details Last Updated DateTime 05/24/2023 157.48 cm Madelaine Quinonez [facility] [employer] [facility] 05/24/2023 14:01:22 Date Recorded Body height Body mass index (BMI) Body weight Provider Name and Address Organization Details Last Updated DateTime 06/21/2023 157.48 cm 28 kg/m2 08539.63 g Madelaine Quinonez [facility] [employer] [facility] 06/21/2023 10:29:55 Date Recorded Body height Provider Name an d Address Organization Details Last Updated DateTime 06/30/2023 157.48 cm Anai Catalan [facility] [employer] [facility] 06/30/2023 08:38:42 Social History Question Answer Notes LastModified by Organizat ion Details LastModified Time Tobacco Smoking Status Never Smoker Not Available [facility] 11/25/2022 13:52:33 What Is Your Level Of Alcohol Consumption? None [id number] Information not available 11/25/2022 Sex: Unknown Functional Status None recorded. Mental Status None recorded. Family History Relationship Description Onset Age of this Age Resolved Age Notes LastModified by Organization Details LastModified Time Father Heart disease [id number] Not available 11/25/2022 13:52:38 Father Family history of stroke [id number] Not available 11/25/2022 13:52:38 Father Family history of malignant neoplasm [id number] Not available 11/25/2022 13:52:38 Mother Heart disease [id number] Not available 11/25/2022 13:52:38 Mother Family history of stroke [id number] Not available 11/25/2022 13:52:38 Mother Family history of malignant neoplasm [id number] Not available 11/25/2022 13:52:38 Mother Hypertensive disorder [id number] Not available 11/25/2022 13:52:38 Brother Heart disease [id number] Not available 11/25/2022 13:52:38 Brother Family history of malignant neoplasm [id number] Not available 11/25/2022 13:52:38 Sister Diabetes mellitus [id number] Not available 11/25/2022 13:52:38 Mother Blood coagulation disorder [email or web address] Not available 2022 11:34:21 Mother Kidney disease [email or web address] Not available 2022 11:34:30 Medical History Condition Response BLINDNESS N KIDNEY STONES N MRSA N CARPAL TUNNEL SYNDROME N LUNG DISEASE/DISORDER N HISTORY OF DRUG ABUSE N RADIATION / CHEMOTHERAPY N COPD N SPORTS INJURY N ANKLE PAIN N BLOOD DISEASES N SCHIZOPHRENIA N SHINGLES N SHOULDER PAIN N DEPRESSION (INCLUDING POST ) N BOWEL PROBLEMS N STROKE/TIA N ULCERS N KNEE PAIN N BENIGN PROSTATIC HYPERPLASIA N OBESITY N GERD/NAUSEA N ANEURYSM N URINARY/BLADDER/KIDNEY PROBLEMS N CORONARY ARTERY DISEASE (CAD) N ADDICTION CONCERNS N USE OF BLOOD THINNERS Y SKIN PROBLEMS N EMPHYSEMA N MUSCLE,JOINT OR BONE PROBLEMS N DVT N STOMACH ULCERS N BLOOD CLOTS N USE OF NSAIDS N CONCUSSION OR SPINAL TRAUMA N NEUROPATHY N AIDS/HIV N FRACTURES N HYPERTENSION Y ELBOW PAIN N TOURETTE'S N Metal allergy N ANXIETY DISORDER N BLOOD TRANSFUSION N ANEMIA/BLOOD DISORDER N BIPOLAR DISORDER N BRONCHITIS N OSTEOARTHRITIS N TUBERCULOSIS N FOOT PROBLEM N HEART VALVE DISORDERS N ALLERGIES/HAYFEVER N SOFT TISSUE INJURY N INFECTIOUS DISEASE N HEART ARRHYTHMIA N INSOMNIA N HIGH CHOLESTEROL / HYPERLIPIDEMIA N RHEUMATOID ARTHRITIS N EDEMA N CHRONIC PAIN SYNDROME N CAROTID BLOCKAGE N BACK / NECK PROBLEMS N HAVE YOU BEEN HOSPITALIZED OR SEEN IN [facility] IN THE PAST YEAR ? N BURSITIS N HERNIATED DISC N DIALYSIS N FIBROMYALGIA N OSTEOPOROSIS Y ARTHRITIS N NO SIGNIFICANT PAST MEDICAL HISTORY N PERIPHERAL NEUROPATHY N DIABETES, TYPE N HEARTBURN / REFLUX N HEPATITIS / LIVER DISEASE N GOUT N ALZHEIMER'S DISEASE N SLEEP DISORDER N HERPES N HEADACHES/MIGRAINES N SEIZURES/EPILEPSY N VASCULAR DISEASE N Blood Disorder N HIP PAIN N DIZZINESS N HEAD TRAUMA OR INJURY N HEART DISEASE/HEART PROBLEMS N MULTIPLE SCLEROSIS N CANCER: SPECIFY N CARDIAC ARRHYTHMIA N ANESTHESIA COMPLICATIONS N ATRIAL FIBRILLATION N AUTOIMMUNE DISEASE N Gynecological HistoryNo gynecological history recorded. Obstetrics History GPAL:G 0 P 0 0 0 0 Past Encounters Encounter ID Performer Location Encounter Start Date Encounter Closed Date Diagnosis/Indication Diagnosis SNOMED-CT Code Diagnosis ICD10 Code Diagnosis Note [id number] [facility] [address] [place] [address] 02/11/2022 00:00:00 02/11/2022 12:44:15 [id number] [facility] [address] [address] 03/13/2022 00:00:00 03/13/2022 11:33:28 [id number] MICHA Sierra [facility] [place] [id number] [place] [address] 12/03/2022 15:42:43 12/03/2022 16:51:50 Pain of right knee joint 1117326633 64321 M25.561 [id number] Chandler Richard MD [facility] [address] [facility] [facility] [address] [place] [address] 02/01/2023 16:09:01 02/03/2023 10:32:07 Pain of right knee joint [id number] M25.561 P [id number] Chandler Richard MD [facility] [address] [facility] [address] [place] [address] 02/10/2023 11:11:05 02/23/2023 09:40:55 Pain of right knee joint [id number] 13003 M25.561 [id number] Chandler Richard MD [facility] [address] [place] [address] 03/24/2023 11:09:26 03/29/2023 09:50:05 Osteoarthritis of right knee joint [id number] 57124 M17.11 [id number] Chandler Richard MD [facility] [address] [place] [address] 04/05/2023 16:54:01 04/08/2023 16:23:12 Osteoarthritis of right knee joint [id number] 42866 M17.11 [id number] MICHA Sierra [facility] [address] [place] [address] 04/26/2023 13:35:19 04/26/2023 14:52:46 History of right total knee replacement [id number] Z96.651 [id number] MICHA Sierra [facility] [address] [place] [address] 05/10/2023 14:06:36 05/10/2023 14:45:55 History of right total knee replacement [id number] Z96.979 [id number] MICHA Sierra [facility] [address] [place] [address] 05/24/2023 14:00:00 05/24/2023 14:55:20 Pain of right knee joint [id number] 60371 M25.250 [id number] MICHA Weinberg [facility] [address] [place] [address] 06/21/2023 10:22:31 06/21/2023 10:46:48 Pain of right knee joint [id number] 99124 M25.561 History of bilateral total knee replacement [id number] Z96.768 [id number] MICHA Sierra [facility] [address] [place] [address] 06/30/2023 08:34:44 06/30/2023 09:24:39 History of right total knee replacement [id number] Z96.651 Health Concerns Section Related Observation LastModified by Organization Detai ls LastModified Time None Recorded Concern Status LastModified by Organization Details LastModified Time None Recorded Advance Directives Directive None Recorded Payers Encounter Date Sequence Insurance Name Policy Number Policy Kan Covered Member ID Kan Member ID Guarantor Name 04/26/2023 1 [facility] (MEDICARE REPLACEMENT/A DVANTAGE - HMO) [id number] Eugenia Kirk Schlechte [id number] Eugenia Kirk Schlechte 05/10/2023 1 [facility] (MEDICARE REPLACEMENT/A DVANTAGE - HMO) [id number] Eugenia Sutherlandlechte [id number] Eugenia Kirk Schlechte 05/24/2023 1 [facility] (MEDICARE REPLACEMENT/A DVANTAGE - HMO) [id number] Eugenia Kirk Schlechte [id number] Eugenia Kirk Schlechte 06/21/2023 1 [facility] (MEDICARE REPLACEMENT/A DVANTAGE - HMO) [id number] Eugenia Kirk Schlechte [id number] Eugenia Kirk Schlechte 06/30/2023 1 [facility] (MEDICARE REPLACEMENT/A DVANTAGE - HMO) [id number] Eugenia Sutherlandlechte [id number] Eugenia Kirk Enalechte Notes Date Note Type Note Provider Name and Address Organization Details Recorded Time 06/21/2023 text/html patient returns for recheck of her right knee. She is now 10 weeks status post right total knee arthroplasty. She states she was doing very well until about a week ago. She was walking comfortably and continue with her daily exercise routine for total knee protocol postop. She states at 1 point she was doing a stair stepping type exercise when she stumbled forward caught herself and soon afterwards noted that her right knee was bothering her somewhat. Denies any specific direct trauma to the knee. She thinks the sudden motion while trying to support herself coming off a step may have aggravated her knee. She is on Eliquis chronically may have start-up a small bleed in the knee. Denies any ecchymosis but states she has some generalized aching pain particular through the arc of motion and with ambulation. She is walking with a limp now she is frustrated and concerned. Denies any erythema heat no effusion no signs of infection. States she has good strength and stability and was doing well until this recent episode. She denies any fevers chills night sweats no constitutional symptoms has had no other signs of infection. She comes in today to talk about her knee pain and for exam. MICHA Weinberg [address] [place] [address], [facility] [address], [place], [address], [facility] 06/21/2023 11:13:33 OBGyn Episode No OBEpisode recorded.
--- OUTSIDE RECORDS SUMMARY | 2024-12-01 08:58 | XMS_ITS | Patient Health Summary ---
Author Organization [facility] Address [address] [place] [address] Care Team Providers Care Take Out Waitress Name Role Phone Christine Parra MD Primary Care Provider + Note from [facility],non-owned Affiliates and Associated Physician Practices is amultiple site organization consisting of ambulatory clinics and hospital sitesin [place], [place], [place] and [place]. This disclosure is being madepursuant to the Care Everywhere program and may not contain all information available regarding this patient. Last updated 18.[facility] Allergies No known active allergies Medications * Be aware that medications may not be up to date on this document. Alwaysverify current medications with the patient. * LEVOTHYROXINE 10 MCG/ML PO CMPD SOLN (SYNTHROID) SOLN Take 10 mcg by mouth once daily * NIFEdipine CR 24hr (ADALAT CC) 30 MG tablet Take 30 mg by mouth once daily Take on an empty stomach. * METOPROLOL-HCTZ 50-25 MG Take 50 mg by mouth once daily * pravastatin (PRAVACHOL) 10 MG tablet Take 10 mg by mouth at bedtime * FLUoxetine (PROZAC) 20 MG/5ML oral solution Take 20 mg by mouth once daily * Calcium Carbonate-Vit D-Min (CALCIUM 1200 PO) Take 1,200 mcg by mouth 2 times daily * vitamin D, ergocalciferol, (DRISDOL) 1.25 MG (84953 UT) capsule Take 50,000 Units by mouth every 30 days * Aspirin (ASPIR-LOW) 81 MG Take 81 mg by mouth once daily * vitamin B-12 ([employer] VITAMIN B-12) 500 MCG tablet Take 6,000 mcg by mouth once daily Active Problems Problem Noted Date Diagnosed Date Osteoarthritis of knee 06/05/2015 Immunizations * INFLUENZA VACCINE, CELL CULTURE, QUADR. (FLUCELVAX QUADRIVALENT; 6MO+), 0.5 ML (CCIIV4)(Given 07/10/2019) * INFLUENZA VACCINE, HIGH-DOSE, QUADR. (FLUZONE HIGH-DOSE QUADRIVALENT; 65Y+), 0.7 ML (HD-IIV4)(Given 07/22/2020) * INFLUENZA VACCINE, QUADR. 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 Oxygen Saturation 96% 08/28/2019 10:35 AM COAT REPAIR INSPECTOR Inhaled Oxygen Concentration - - Weight 83.7 kg (184 lb 8 oz) 07/24/2020 10:51 AM CDT Height 160 cm (5' 3 ) 07/24/2020 10:51 AM CDT Body Mass Index 32.68 07/24/2020 10:51 AM CDT Procedures * STREP A SCREEN - POINT OF CARE (AMB) STL(Performed 08/28/2019) Performed for Acute maxillary sinusitis, recurrence not specified Results * STREP A SCREEN - POINT OF CARE (AMB) STL (08/28/2019) Strep A Rapid POCT Negative Negative Strep A Internal Control Present Lot # [id number] Expiration Date 12/25/2020 Throat ENTIRE THROAT (SURFACE REGION OF NECK) / Unknown 08/28/2019 [facility] - POINT OF CARE ORDERABLES Care Teams Take Out Waitress Relationship Specialty Start Date End Date Christine Parra MD [address] [place] [address] PCP - General 05/23/20
--- OUTSIDE RECORDS SUMMARY | 2024-12-01 08:58 | XMS_ITS | Referral Summary ---
Author Organization [facility] Address [address] [place] [address] Care Team Providers Care Measurement Superintendent Name Role Phone Joe Chavez MD Primary Care Provider Encounters Date Type Department Care Team Description 11/22/2024 9:08 AM SURGICAL SUPPLIES STERILIZER - 11/22/2024 11:59 PM [facility] Hospital Encounter [facility] [address] [place] [address] Dyspnea, unspecified type Discharge Disposition: Discharge to home or self care 11/22/2024 8:20 AM SURGICAL SUPPLIES STERILIZER Office Visit [facility] [address] [place] [address] Pau Emanuel MD Muscle tension dysphonia (Primary Dx); Paralysis of vocal cords and larynx, unilateral; Dyspnea, unspecified type; Thyroid nodule from Last 3 Months Allergies No known active allergies Medications pravastatin [...] to management today The patient has a CEM6HD7-NTLk score of 3. Given this, I recommended continued anticoagulation for thromboprophylaxis, about which she was disappointed. A newer indication for percutaneous left atrial appendage occlusion is personal preference (a IIB indication), and I provided her with material to review. The patient has inquired about following up with her buyer assistant, which is closer to her home. I [...] at this time. The patient has a OSC8SR6-GSCo score of 3. I have therefore recommended [...] of knee 06/05/2015 Overview (01/01/2017): Osteoarthritis, knee Immunizations Immunization Administration Dates Next Due Influenza, [...] Pneumococcal Polysaccharide PPV23 07/06/2018 ZOSTER Recombinant 09/22/2019,07/10/2019 Social History Tobacco Use Types Packs/Day Years [...] on file Legal Sex Female 2:09 AM SURGICAL SUPPLIES STERILIZER Gender Identity Female 11/24/2020 10:12 AM SURGICAL SUPPLIES STERILIZER Sexual Orientation Straight 11/24/2020 10 :12 AM SURGICAL SUPPLIES STERILIZER Last Filed Vital Signs Vital Sign Reading Time Taken Comments Blood Pressure 152/76 11/22/2024 8:14 AM SURGICAL SUPPLIES STERILIZER Pulse 65 11/22/2024 8:14 AM SURGICAL SUPPLIES STERILIZER Temperature 36.8 C (98.2 F) 12/25/2022 12:16 PM CDT Respiratory Rate 22 12/25/2022 12:16 PM CDT Oxygen Saturation 97% 01/17/2024 11:24 AM CDT Inhaled Oxygen Concentration - - Weight 75 kg (165 lb 6.4 oz) 11/22/2024 8:14 AM SURGICAL SUPPLIES STERILIZER Height 157.5 cm (5' 2 ) 11/22/2024 8:14 AM SURGICAL SUPPLIES STERILIZER Body Mass Index 30.25 11/22/2024 8:14 AM SURGICAL SUPPLIES STERILIZER Plan of Treatment Not on file Medical Devices Implanted Type Area Cat Dog Or Other Pet Groomer Device Identifier Shelf Expiration Date Model / Serial / Lot [employer] Vascade Mvp 6-12fr Venous Closure [id number] - [id number] - [id number] Implanted:Qty: 1 on 12/17/2022 by Miguel Angel Garay III, MD at [facility] [employer] 09/10/2024 800-612C-[id number] [id number] / [id number] / [id number] [employer] Vascade Mvp 6-12fr Venous Closure [id number] - [id number] - [id number] Implanted:Qty: 1 on 12/17/2022 by Miguel Angel Garay III, MD at [facility] [employer] 09/10/2024 800-612C-1 [id number] / [id number] / [id number] [employer] Vascade Mvp 6-12fr Venous Closure [id number] - [id number] - [id number] Implanted:Qty: 1 on 12/17/2022 by Miguel Angel Garay III, MD at [facility] [employer] 09/10/2024 800-612C-1 [id number] / [id number] / [id number] Procedures Procedure Name Priority Date/Time Associated Diagnosis Comments XR CHEST PA LATERAL 2 VIEWS Schedule Routine, Read Routine (OP Routine) 11/22/2024 9:21 AM SURGICAL SUPPLIES STERILIZER Dyspnea, unspecified type from Last 3 Months Results * XR Chest PA Lateral 2 Views (11/22/2024 9:21 AM SURGICAL SUPPLIES STERILIZER) Anatomical Region Laterality Modality Body, Chest N/A Computed Radiogr aphy 11/22/2024 9:24 AM SURGICAL SUPPLIES STERILIZER Impressions 11/22/2024 9:24 AM SURGICAL SUPPLIES STERILIZER No prior comparison. Right upper quadrant surgical clips. The lungs are clear without pneumothorax, pleural effusion, focal consolidation, or pulmonary edema. The cardiomediastinal contours are within normal limits. Electronically signed by: Hemant Glez M.D. Narrative 11/22/2024 9:24 AM SURGICAL SUPPLIES STERILIZER EXAMINATION: 2 view chest radiograph Procedure Note [...] MEDICARE SOLUTIONS Member Subscriber Plan / Payer (Ef fective 2022-Present) Name:Eugenia Chang Relation to Subscriber:Self Name:Eugenia Chang Payer ID:[id number] (NAIC) Type:[facility] MEDIC[facility] Address: [place] [phone] MEDICARE SOLUTIONS [place] [phone] MEDICARE SOLUTIONS Care Teams Measurement Superintendent Relationship Specialty Start Date End Date Joe Chavez MD [address] [facility] [address] [place] [id number] PCP - General Family Medicine 11/22/24
--- NOTE | 2024-12-01 09:02 | ECHO_ITS ---
Patient Info Name: Eugenia Chang Age: 74 years : 1950 Gender: Female Ht: 62 in Wt: 165 lbs BSA: 1.84 m2 HR: 56 bpm BP: 136 / 78 mmHg Heart Rhythm: Sinus Rhythm Technical Quality: Fair Exam Date: 12/01/2024 9:14 AM Exam Location: Echo Lab Patient Status: Outpatient Admit Date: 12/01/2024 Staff Ordering Physician: Neo Flores DO Construction Job Cost Estimator: Mihaela Zuniga RDCS Attending Provider: Neo Flores DO Referring Physician: Mark MOSELEY; Exam Type: CA echo doppler color flow Study Info Indications - Dyspnea Complete two-dimensional, color flow and Doppler transthoracic echocardiogram is performed. Summary 1. Complete two-dimensional, color flow and Doppler transthoracic echocardiogram is performed. 2. Left ventricular chamber dimension is normal. 3. Left ventricular systolic function is normal, estimated at 60-65%. 4. The left ventricular diastolic function is abnormal. 5. E/e' 15 is elevated. 6. Left atrial chamber dimension is moderately enlarged. 7. Right atrial chamber dimension is mildly enlarged. 8. There is mild aortic valve sclerosis. 9. The mitral valve has moderately calcified annulus. 10. There is mild to moderate mitral valve regurgitation. 11. There is mild tricuspid valve regurgitation. 12. Mild pulmonary hypertension, estimated pulmonary arterial systolic pressure is 43 mmHg. Left Ventricle E/e' 15 is elevated. Left ventricular chamber dimension is normal. Left ventricular systolic function is normal, estimated at 60-65%. The left ventricular diastolic function is abnormal. Right Ventricle Right ventricular systolic function is normal and with normal TAPSE 2.4 cm. Right ventricular chamber dimension is normal. Left Atria Left atrial chamber dimension is moderately enlarged. Right Atria Right atrial chamber dimension is mildly enlarged. Aortic Valve The aortic valve is trileaflet. There is mild aortic valve sclerosis. There is no aortic valve stenosis. There is no aortic valve regurgitation. Pulmonic Valve There is no pulmonic regurgitation. Mitral Valve The mitral valve has moderately calcified annulus. There is no mitral valve stenosis. There is mild to moderate mitral valve regurgitation. Tricuspid Valve There is mild tricuspid valve regurgitation. Mild pulmonary hypertension, estimated pulmonary arterial systolic pressure is 43 mmHg. Pericardium/Pleural There is no pericardial effusion. Inferior Vena Cava Normal inferior vena cava with >50% collapse upon inspiration consistent with normal right atrial pressure, 5 mmHg. Aorta The aortic root size at the sinus of Valsalva is normal. Left Ventricular Outflow Tract Name Value Normal LVOT 2D LVOT Diameter 2.0 cm LVOT Doppler LVOT Peak Velocity 102 cm/s LVOT Peak Gradient 4 mmHg LVOT Mean Gradient 2 mmHg LVOT VTI 29 cm LVOT VTI/AV VTI Ratio 0.8 LVOT Stroke Volume 92 ml LVOT CO 4.7 l/min LVOT CI 2.5 l/min/m2 Pulmonic Valve Name Value Normal RVOT Doppler RVOT Peak Gradient 3 mmHg PV Doppler PV Peak Velocity 88 cm/s PV Peak Gradient 3 mmHg Mitral Valve Name Value Normal MV Doppler MV Decel [place] 494 cm/s2 MV PHT 52 ms MV Area (PHT) 4.2 cm2 4.0-5.0 MV Diastolic Function MV E Peak Velocity 88 cm/s MV A Peak Velocity 59 cm/s MV E/A 1.5 MV Decel Time 179 ms MV Annular TDI MV Septal e' Velocity 5.6 cm/s >=8.0 MV E/e' (Septal) 15.8 <=8.0 MV Lateral e' Velocity 5.6 cm/s >=10.0 MV E/e' (Lateral) 15.7 <=8.0 MV e' Average 5.62 MV E/e' (Average) 15.7 Tricuspid Valve Name Value Normal TV Regurgitation Doppler TR Peak Velocity 306 cm/s TR Peak Gradient 38 mmHg Estimated PAP/RSVP RA Pressure 5 mmHg <=5 PA Systolic Pressure 43 mmHg <36 RV Systolic Pressure 43 mmHg <36 TV Annular TDI TV Lateral Veronica s' Velocity 10.2 cm/s 9.5-18.7 Aortic Valve Name Value Normal AV Doppler AV Peak Velocity 152 cm/s AV Peak Gradient 9 mmHg AV Mean Gradient 4 mmHg AV VTI 39 cm AV Area (Cont Eq VTI) 2.4 cm2 >=3.0 AV Area (Cont Eq Tej) 2.1 cm2 AV V1/V2 Ratio 0.67 AV Regurgitation 2D LVOT Area 3.1 cm2 Ventricles Name Value Normal LV Dimensions 2D/MM IVS Diastolic Thickness (2D) 1.1 cm 0.6-1.0 LVID Diastole (2D) 4.2 cm 3.8-5.2 LVIW Diastolic Thickness (2D) 0.9 cm 0.6-0.9 LVID Systole (2D) 3.1 cm 2.2-3.5 LVOT Diameter 2.0 cm LV Mass (2D Cubed) 137.80 g 67.00-162.00 LV Mass Index (2D Cubed) 75 g/m2 43-95 Relative Wall Thickness (2D) 0.45 LV Fractional Shortening/Ejection Fraction 2D/MM LV Fractional Shortening (2D) 27 % 27-45 LV EF (2D [place]) 53 % 54-74 LV Diastolic Volume (4C MOD) 97 ml LV EF (4C MOD) 62 % LV Diastolic Volume (2C MOD) 108 ml LV EF (2C MOD) 65 % LV Diastolic Volume (BP MOD) 103 ml 46-106 LV Diastolic Volume Index (BP MOD) 56 ml/m2 29-61 LV Systolic Volume (BP MOD) 37 ml 14-42 LV Systolic Volume Index (BP MOD) 20 ml/m2 8-24 LV EF (BP MOD) 64 % 54-74 LV Diastolic Length (4C) 8.3 cm LV Systolic Length (4C) 6.1 cm LV Stroke Volume (4C MOD) 59 ml Atria Name Value Normal LA Dimensions LA Volume (4C A-L) 69 ml LA Volume (BP A-L) 72 ml RA Dimensions RA Area (4C) 18.5 cm2 <=18.0 Report Signatures
== END 2024-12-01 08:43 | disposition home or self-care (01) ==
PROVIDERS: PCP Family Medicine; Visit Provider Internal Medicine Cardiovascular Disease
DX: R06.00 Dyspnea, unspecified (principal)
CPT/HCPCS: 93306

== ENCOUNTER 2025-04-10 11:10 | Emergency (ER) | payer MEDICARE, SELFPAY ==
--- NOTE | 2025-04-10 11:11 | ED.URI ---
HPI - URI/Sore Throat General Chief Complaint: Upper Respiratory Infection Stated Complaint: Cough/Sore Throat Time Seen by Provider: 04/10/25 11:30 Source: patient and RN notes reviewed Mode of arrival: ambulatory Limitations: no limitations History of Present Illness HPI Narrative: 74-year-old female presents with concern for one-week history of cough, chest congestion. She denies history of asthma or other breathing problems. She reports she has been having chills. She has some runny nose and stuffy nose. She also reports sore throat. She denies any trouble breathing. MD elicited complaint: cough Related Data Home Medications ?Medication ?Instructions ?Recorded ?Confirmed ?Last Taken ?Type multivitamin 1 tablet PO DAILY 09/29/19 03/09/25 05/20/20 History calcium carbonate (Calcium 600) 2,400 mg PO HS 12/01/19 03/09/25 05/20/20 History cholecalciferol (vitamin D3) 125 5,000 unit PO HS 12/01/19 03/09/25 05/20/20 History mcg (5,000 unit) tablet (Vitamin D3) magnesium oxide 600 mg PO HS 01/31/24 03/09/25 Unknown History Allergies Allergy/AdvReac Type Severity Reaction Status Date / Time alendronate sodium Allergy Intermediate Hives Verified 04/10/25 11:26 lisinopril Allergy Mild dizzy Verified 04/10/25 11:26 nortriptyline AdvReac Severe Nightmare Verified 04/10/25 11:26 Review of Systems Review of Systems: CONSTITUTIONAL: Denies malaise, sweats, or fever.. Reports chills EYES: Denies visual changes, redness, or discharge. ENT: Reports rhinorrhea, congestion, sore throat. CARDIOVASCULAR: Denies chest pain, palpitations, or edema. RESPIRATORY: Reports cough and chest congestion. Denies dyspnea. GASTROINTESTINAL: Denies abdominal pain, nausea, vomiting, diarrhea SKIN: Denies rash or itching. MUSCULOSKELETAL: Denies myalgia. NEUROLOGIC: Denies headache. All systems reviewed & are unremarkable except as noted in HPI and below PMFSH Past Medical History Medical History Carpal tunnel syndrome on both sides Postmenopausal Mixed hyperlipidemia MDD (major depressive disorder), recurrent episode, moderate Diarrhea Clostridium difficile infection (11/2019) Obstructive sleep apnea on CPAP Depression Irritable bowel syndrome Gastroesophageal reflux disease Stress Atherosclerosis of aorta Intractable headache UTI (urinary tract infection) Stress at home Hemicrania continua Vertiginous migraine Right temporal headache Amaurosis fugax of right eye Temporal arteritis syndrome TMJ arthropathy C. difficile colitis Dehydration Antibiotic-associated diarrhea Colitis Dehydration Hypokalemia Anxiety Degenerative joint disease Hypertension Hypothyroidism Paroxysmal atrial fibrillation On metoprolol. She is not on long-term anticoagulation. History of rectal polyps Mixed hyperlipidemia Surgical History Surgical History History of partial hysterectomy History of spinal surgery (2018) L3-L4 herniated disc. History of total right knee replacement (04/12/23) History of partial thyroidectomy History of carpal tunnel release History of cataract surgery History of appendectomy History of cholecystectomy History of tubal ligation History of biopsy of temporal artery (04/2020) Negative for inflammation. History of total left knee replacement (2014) With revision in 2017. Family History Family History Mother Hypertension Uterine cancer High cholesterol Sibling PAD (peripheral artery disease) Hx of heart artery stent DVT (deep venous thrombosis) Afib Father Family history of heart disease in male family member before age 55, Onset Age: 70 CHF (congestive heart failure) Sibling Hypertension High cholesterol Sibling Pancreatic cancer History of quadruple bypass CHF (congestive heart failure) Social History Social History Social History: The patient is and lives with her in [place]. 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 She smoked remotely in her teens. No alcohol or drug abuse. She designates her as her surrogate decision maker and she wishes to be a full code. Smoking status: Never smoker Second hand tobacco smoke exposure: No Alcohol intake: never Substance use: never Substance use type: does not use Do You Feel Safe in your Home?: Yes Lack of Transportation: No Lack of Food: Never True Current Housing: I Have Housing Concerned About Future Housing: No Difficulty Paying Gas/Electric Bills: No Difficulty Paying for Meds: No Currently Unemployed: No Education: High School Diploma/GED Difficulty w/ Childcare or Family Care: No Living arrangements: with family Occupation/Education: retired Gender identity (if verbalized by the patient): Female Sexual Orientation (if Verbalized by the Patient): Straight or Heterosexual Spiritual care concerns: No Agree to blood products: Yes Comments At time of signature, agree with nursing past medical, surgical, social and family history. There is no relevant family history pertinent to the presenting complaint Exam Narrative: GENERAL: Well-appearing, well-nourished, and in no acute distress. HEAD: Normocephalic EYES: PERRLA, conjunctivae clear ENT: Nares clear. Mucous membranes moist. TM pearly yarbrough with dull light reflex bilaterally; no tragal tenderness. Oropharynx not erythematous without lesions. Tonsils not enlarged and without exudate, no drooling, no hoarseness, no trismus, uvula midline. NECK: Supple. No lymphadenopathy CHEST: Scattered wheeze and rhonchi, otherwise breath sounds equal. No rales, or stridor. No respiratory distress, speaks in full sentences. HEART: Regular rate and rhythm. No murmur heard. SKIN: Warm, dry, no rash. NEURO: Alert and oriented x3. PSYCH: Normal mood and affect Course Course Emergency Course: Patient is aware of diagnosis, understands and agrees to treatment plan. Anticipatory guidance given. Patient agrees to follow-up as directed and is aware of reasons to seek care at the emergency department. Portions of this record may have been created with voice recognition software Level of Care: Express Care Visit Vital Signs Vital signs: Vital Signs Temperature 97.6 F 04/10/25 11:26 Pulse Rate 61 04/10/25 11:26 Respiratory Rate 04/10/25 11:26 Blood Pressure 152/68 H 04/10/25 11:26 Pulse Oximetry 99 04/10/25 11:26 Temperature 97.6 F 04/10/25 11:26 Pulse Rate 61 04/10/25 11:26 Respiratory Rate 20 04/10/25 11:26 Blood Pressure 152/68 H 04/10/25 11:26 Pulse Oximetry 99 04/10/25 11:26 Reviewed. MDM - URI/Sore Throat MDM Narrative Medical decision making narrative: Differential diagnosis considered: Hwang virus, strep pharyngitis, allergic rhinitis, upper respiratory tract infection, sinusitis, rhinosinusitis, nasopharyngitis. viral pharyngitis, otitis media, otitis externa, pneumonia, bronchitis, viral cough syndrome, viral syndrome, and influenza. Exam findings show no acute concerns or changes; patient is non-toxic appearing and is in no distress. Patient is appropriate for outpatient treatment and follow-up. Lab Data Attestation: I reviewed the patient's lab results. Critical Care Time Critical Care Time Critical Care Time: No Discharge Plan Discharge Clinical Impression: Lower respiratory tract infection Patient Disposition: Home Condition: Stable Instructions: Antibiotic Form Additional Instructions: Take medication as directed Recommend antihistamine such as Benadryl at night time and Zyrtec or Agueda during the day Use inhaler as needed for cough, wheezing, shortness of breath or chest tightness. Also, recommend symptomatic treatment includes: rest, fluids, and increase humidity of the air at home. Recommend Acetaminophen as directed on the bottle to reduce fever, pain, headache. Avoid smoking/second-hand smoke. Please schedule a follow-up visit with your personal physician for further evaluation and treatment within 3-5days. Including recheck and discussion of your blood pressure. If your symptoms persist, change or worsen significantly before you can contact your personal physician then please, without delay, go to the emergency department for further evaluation. Patient Language: Japanese Prescriptions: New (DME) BreatheRite Valved MDI Chamber Spacer See Rx Instructions .Route Qty: 1 0RF Rx Instructions: As directed azithromycin [Zithromax Z-Neri] 250 mg tablet See Rx Instructions .ROUTE .COMPLEX Qty: 6 0RF Rx Instructions: take 500 mg today (day 1), then 250 mg for 4 days (days 2-5) methylprednisolone [Medrol (Neri)] 4 mg tablets,dose pack See Rx Instructions .ROUTE .COMPLEX Qty: 21 0RF Rx Instructions: orally per package directions albuterol sulfate 90 mcg/actuation HFA aerosol inhaler 2 puff INHALATION QID PRN (Reason: shortness of breath or wheezing) Qty: 8.5 0RF No Action losartan 25 mg tablet 25 mg PO DAILY Qty: 90 1RF multivitamin Tablet,Chewable 1 tablet PO DAILY omeprazole 40 mg capsule,delayed release(DR/EC) 40 mg PO DAILY Qty: 90 1RF sertraline 25 mg tablet 25 mg PO DAILY Qty: 90 1RF magnesium oxide 300 mg magnesium Tablet 600 mg PO HS calcium carbonate [Calcium 600] 600 mg calcium (1,500 mg) Tablet 2,400 mg PO HS cholecalciferol (vitamin D3) [Vitamin D3] 125 mcg (5,000 unit) Tablet 5,000 unit PO HS pravastatin 10 mg tablet 10 mg PO HS Qty: 100 1RF Rx Instructions: TAKE 1 TABLET BY MOUTH AT BEDTIME amlodipine 5 mg tablet See Rx Instructions .ROUTE .COMPLEX Qty: 90 2RF Dose Instruction: TAKE 1 TABLET BY MOUTH DAILY Rx Instructions: TAKE 1 TABLET BY MOUTH DAILY metoprolol succinate 50 mg tablet extended release 24 hr See Rx Instructions .ROUTE .COMPLEX Qty: 90 2RF Dose Instruction: TAKE 1 TABLET BY MOUTH DAILY Rx Instructions: TAKE 1 TABLET BY MOUTH DAILY eszopiclone [Lunesta] 3 mg tablet 3 mg PO QHS Qty: 30 2RF levothyroxine 88 mcg tablet See Rx Instructions .ROUTE .COMPLEX Qty: 64 3RF Dose Instruction: TAKE 1 TABLET BY MOUTH DAILY WEDNESDAY THROUGH WEDNESDAY SKIP WEDNESDAY AND WEDNESDAY Rx Instructions: TAKE 1 TABLET BY MOUTH DAILY WEDNESDAY THROUGH WEDNESDAY SKIP WEDNESDAY AND WEDNESDAY Follow-up/Referrals: Joe Chavez MD [Primary Care Provider] - Time of Disposition: 11:55
[2025-04-10 11:26] VITALS: BP 152/68; PULSE 61; RESP 20; TEMP 36.4; O2SAT 99
== END 2025-04-10 12:08 | disposition home or self-care (01) ==
PROVIDERS: Emergency Provider Nurse Practitioner; PCP Family Medicine
DX: J22 Unspecified acute lower respiratory infection (principal); E78.2 Mixed hyperlipidemia; G47.33 Obstructive sleep apnea (adult) (pediatric); K21.9 Gastro-esophageal reflux disease without esophagitis; I70.0 Atherosclerosis of aorta; Z86.19 Personal history of other infectious and parasitic diseases; I10 Essential (primary) hypertension; E03.9 Hypothyroidism, unspecified; I48.91 Unspecified atrial fibrillation; Z90.89 Acquired absence of other organs; F41.9 Anxiety disorder, unspecified; F33.9 Major depressive disorder, recurrent, unspecified; Z96.653 Presence of artificial knee joint, bilateral; Z90.711 Acquired absence of uterus with remaining cervical stump
CPT/HCPCS: 99213; G0463

== ENCOUNTER 2025-04-13 13:27 | Outpatient (CLI) | payer MEDICARE, SELFPAY ==
--- NOTE | ~2025-04-13 | XR_ITS ---
Clinical Indication: Cough PA and lateral views of the chest: Comparison: None Findings: The lungs are clear, without evidence of focal consolidation or pleural effusion. Cardiome diastinal silhouette is within normal limits. Bones and soft tissues are unremarkable. Impression: Normal chest. Reviewed, dictated and finalized at location . Impression: Normal chest.
== END 2025-04-13 13:28 | disposition home or self-care (01) ==
LOC: MICIMG 13:29
PROVIDERS: PCP Family Medicine; Visit Provider Physician Assistant
DX: R05.9 Cough, unspecified (principal); R06.02 Shortness of breath; R53.83 Other fatigue; R09.89 Other specified symptoms and signs involving the circulatory and respiratory systems
CPT/HCPCS: 71046

== ENCOUNTER 2025-04-30 09:25 | Emergency (ER) | payer MEDICARE, SELFPAY ==
[2025-04-30 09:40] VITALS: BP 139/62; PULSE 61; RESP 18; TEMP 36.4; O2SAT 99
--- NOTE | 2025-04-30 10:17 | ED_ITS ---
HPI - URI/Sore Throat General Chief Complaint: Upper Respiratory Infection Stated Complaint: Cough/Sore Throat/Dizzy Time Seen by Provider: 04/30/25 10:17 Source: patient, RN notes reviewed and old records reviewed Mode of arrival: ambulatory Limitations: no limitations History of Present Illness HPI Narrative: 75-year-old female presents to the [facility] with complaints of cough, sore throat. Patient seen on April 10 in the urgent care, prescribed azithromycin, Medrol Dosepak and albuterol. Patient did follow-up with primary care provider. PCMhad ordered a chest x-ray which per medical record was normal. Patient reports symptoms did improve after medications, symptoms returned approximately 10 days ago. Related Data Home Medications ?Medication ?Instructions ?Recorded ?Confirmed ?Last Taken ?Type multivitamin 1 tablet PO DAILY 09/29/19 04/30/25 05/20/20 History calcium carbonate (Calcium 600) 2,400 mg PO HS 12/01/19 04/30/25 05/20/20 History cholecalciferol (vitamin D3) 125 5,000 unit PO HS 12/01/19 04/30/25 05/20/20 History mcg (5,000 unit) tablet (Vitamin D3) magnesium oxide 600 mg PO HS 01/31/24 04/30/25 Unknown History Allergies Allergy/AdvReac Type Severity Reaction Status Date / Time alendronate sodium Allergy Intermediate Hives Verified 04/30/25 09:50 lisinopril Allergy Mild dizzy Verified 04/30/25 09:50 nortriptyline AdvReac Severe Nightmare Verified 04/30/25 09:50 Review of Systems Review of Systems: All systems reviewed & are unremarkable except as noted in HPI and below Constitutional: Constitutional: Reports no additional constitutional complaints ENT: Reports as per HPI and Reports sore throat Cardiovascular: Cardiovascular: Reports no additional cardiovascular complaints, Denies chest pain and Denies dyspnea Respiratory: Respiratory: Reports as per HPI, Denies chest congestion, Reports cough and Denies dyspnea Musculoskeletal: Musculoskeletal: Reports no additional musculoskeletal complaints Integumentary/Breasts: Skin/Breast: Reports system reviewed and no additional complaints, except as docu PMFSH Past Medical History Medical History Carpal tunnel syndrome on both sides Postmenopausal Mixed hyperlipidemia MDD (major depressive disorder), recurrent episode, moderate Diarrhea Clostridium difficile infection (11/2019) Obstructive sleep apnea on CPAP Depression Irritable bowel syndrome Gastroesophageal reflux disease Stress Atherosclerosis of aorta Intractable headache UTI (urinary tract infection) Stress at home Hemicrania continua Vertiginous migraine Right temporal headache Amaurosis fugax of right eye Temporal arteritis syndrome TMJ arthropathy C. difficile colitis Dehydration Antibiotic-associated diarrhea Colitis Dehydration Hypokalemia Anxiety Degenerative joint disease Hypertension Hypothyroidism Paroxysmal atrial fibrillation On metoprolol. She is not on long-term anticoagulation. History of rectal polyps Mixed hyperlipidemia Surgical History Surgical History History of partial hysterectomy History of spinal surgery (2018) L3-L4 herniated disc. History of total right knee replacement (04/12/23) History of partial thyroidectomy History of carpal tunnel release History of cataract surgery History of appendectomy History of cholecystectomy History of tubal ligation History of biopsy of temporal artery (04/2020) Negative for inflammation. History of total left knee replacement (2014) With revision in 2017. Family History Family History Mother Hypertension Uterine cancer High cholesterol Sibling PAD (peripheral artery disease) Hx of heart artery stent DVT (deep venous thrombosis) Afib Father Family history of heart disease in male family member before age 55, Onset Age: 70 CHF (congestive heart failure) Sibling Hypertension High cholesterol Sibling Pancreatic cancer History of quadruple bypass CHF (congestive heart failure) Social History Social History Social History: The patient is and lives with her in [place]. 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 She smoked remotely in her teens. No alcohol or drug abuse. She designates her as her surrogate decision maker and she wishes to be a full code. Smoking status: Never smoker Second hand tobacco smoke exposure: No Alcohol intake: never Substance use: never Substance use type: does not use Do You Feel Safe in your Home?: Yes Lack of Transportation: No Lack of Food: Never True Current Housing: I Have Housing Concerned About Future Housing: No Difficulty Paying Gas/Electric Bills: No Difficulty Paying for Meds: No Currently Unemployed: No Education: High School Diploma/GED Difficulty w/ Childcare or Family Care: No Living arrangements: with family Occupation/Education: retired Gender identity (if verbalized by the patient): Female Sexual Orientation (if Verbalized by the Patient): Straight or Heterosexual Spiritual care concerns: No Agree to blood products: Yes Comments At the time of my signature, I reviewed and agree with the nursing past medical, surgical, social, and family history. There is no relevant family history pertinent to the patient complaint. Exam Const: General: cooperative, healthy appearing, comfortable, no acute distress, well developed, alert and well nourished Nutritional Appearance: well nourished Orientation/consciousness: patient oriented x3 Limitations: no limitations HENMT: Head: normal to inspection Ears: hearing grossly normal bilaterally, external ears normal, TM's normal bilaterally, EAC's normal, mastoids normal and no periauricular adenopathy Mouth: Yes Normal oral and palatal mucosa present, Yes lip normal, Yes tongue normal and Yes moist mucous membranes Throat: posterior oropharynx normal, uvula midline and no uvular edema Eyes: General: appearance normal, both eyes and all related structures Alignment and Position: alignment normal Neck: Neck: normal visual inspection, full ROM, no lymphadenopathy and no meningeal signs Chest: Chest palpation & inspection: normal inspection of the chest Resp: Effort & Inspection: normal respiratory effort and able to speak in complete sentences Auscultation: clear to auscultation bilaterally, no crackles, no rales, no rhonchi and no wheezes Cardio: Rate: regular rate Skin: General skin exam: normal color and no rashes or lesions noted Neuro: General: patient oriented x3, gait normal, moves all extremities and no meningeal signs Cognition (Neuro): normal cognition Speech: normal speech Gait exam (Neuro): Normal gait present Extrem: General: normal to inspection, full ROM, capillary refill normal and normal gait Psych: Appearance: grossly normal and well kempt Mental Status: mental status grossly normal Speech and movement: Normal speech and movement present and Clear speech present Affect: normal affect Attitude: cooperative Course Course Level of Care: Express Care Visit Vital Signs Vital signs: Vital Signs Temperature 97.6 F 04/30/25 09:40 Pulse Rate 61 04/30/25 09:40 Respiratory Rate 18 04/30/25 09:40 Blood Pressure 139/62 04/30/25 09:40 Pulse Oximetry 99 04/30/25 09:40 Oxygen Delivery Room Air 04/30/25 09:40 Temperature 97.6 F 04/30/25 09:40 Pulse Rate 61 04/30/25 09:40 Respiratory Rate 18 04/30/25 09:40 Blood Pressure 139/62 04/30/25 09:40 Pulse Oximetry 99 04/30/25 09:40 Oxygen Delivery Room Air 04/30/25 09:40 Reviewed MDM - URI/Sore Throat MDM Narrative Medical decision making narrative: Patient sitting in exam room. Patient is nontoxic, vitals stable. Reviewed previous notes, reviewed recent x-ray which was negative. Patient has a returning cough after some improvement with treatment. Switching antibiotic, discussed [id number] products which she should be taking daily. Patient appropriate for outpatient treatment with close follow-up. Discharge instructions reviewed with patient, as well as provided in writing per nursing staff. The instructions also include specific and strict return/GO TO THE ER as well as f/u information. All questions have been answered, and the patient deny any further questions with discharge and discharge plan. Some parts of this dictation were generated by voice recognition software and may contain typographical and/or grammatical inaccuracies. Differential Diagnosis Differential diagnosis: Likely upper respiratory infection, otitis media, sinusitis, viral infection, bronchitis, influenza and pharyngitis Critical Care Time Critical Care Time Critical Care Time: No Discharge Plan Discharge Clinical Impression: Bronchitis Patient Disposition: Home Condition: Stable Instructions: Antibiotic Form, Acute Bronchitis (ED) Additional Instructions: It is very important to treat your symptoms. Drink plenty of water, Gatorade, Pedialyte, ice pops or Jell-O. Use the albuterol inhaler as prescribed -Alternate Tylenol and Motrin per package directions for fever or pain. You can alternate every 4 hours -Antihistamine medication such as Zyrtec/Claritin/Agueda during the day can help improve symptoms. -doing daily nasal irrigations can help relieve pressure your sinuses. Things like a Neti pot -Use Flonase twice a day for 5 days then daily to help reduce the inflammation and dry up your sinuses. -You can also use Coricidin HBP. Be sure to drink plenty of water with this medication at least 8 ounces with every dose and it is important to drink 8 to 10 glasses of water per day. Water is a natural decongestant -Eat and drink things that are easy to swallow, like tea or soup, or popsicles. -Oral rinses such as: Salt water gargles and/or may use topical anesthetic (eg. Chloraseptic spray) or lozenges to relieve dryness or throat pain). -Frequent hand washing or hand optical brightener maker helper is one of the best ways to prevent spread of infection. -Using a vaporizer or humidifier at night will also help thin secretions and help with coughing up phlegm. -Follow up with primary care provider in 7-10 days if condition is not improving - For new or worsening symptoms go directly to the nearest ER Patient Language: Pashto Prescriptions: New doxycycline monohydrate 100 mg tablet 100 mg PO BID Qty: 14 0RF No Action (DME) BreatheRite Valved MDI Chamber Spacer See Rx Instructions .Route Qty: 1 0RF Rx Instructions: As directed albuterol sulfate 90 mcg/actuation HFA aerosol inhaler 2 puff INHALATION QID PRN (Reason: shortness of breath or wheezing) Qty: 8.5 0RF losartan 25 mg tablet 25 mg PO DAILY Qty: 90 1RF multivitamin Tablet,Chewable 1 tablet PO DAILY sertraline 25 mg tablet 25 mg PO DAILY Qty: 90 1RF magnesium oxide 300 mg magnesium Tablet 600 mg PO HS calcium carbonate [Calcium 600] 600 mg calcium (1,500 mg) Tablet 2,400 mg PO HS cholecalciferol (vitamin D3) [Vitamin D3] 125 mcg (5,000 unit) Tablet 5,000 unit PO HS pravastatin 10 mg tablet 10 mg PO HS Qty: 100 1RF Rx Instructions: TAKE 1 TABLET BY MOUTH AT BEDTIME amlodipine 5 mg tablet See Rx Instructions .ROUTE .COMPLEX Qty: 90 2RF Dose Instruction: TAKE 1 TABLET BY MOUTH DAILY Rx Instructions: TAKE 1 TABLET BY MOUTH DAILY metoprolol succinate 50 mg tablet extended release 24 hr See Rx Instructions .ROUTE .COMPLEX Qty: 90 2RF Dose Instruction: TAKE 1 TABLET BY MOUTH DAILY Rx Instructions: TAKE 1 TABLET BY MOUTH DAILY levothyroxine 88 mcg tablet See Rx Instructions .ROUTE .COMPLEX Qty: 64 3RF Dose Instruction: TAKE 1 TABLET BY MOUTH DAILY WEDNESDAY THROUGH WEDNESDAY SKIP WEDNESDAY AND WEDNESDAY Rx Instructions: TAKE 1 TABLET BY MOUTH DAILY WEDNESDAY THROUGH WEDNESDAY SKIP WEDNESDAY AND WEDNESDAY omeprazole 40 mg capsule,delayed release(DR/EC) See Rx Instructions .ROUTE .COMPLEX Qty: 100 1RF Dose Instruction: TAKE 1 CAPSULE BY MOUTH DAILY Rx Instructions: TAKE 1 CAPSULE BY MOUTH DAILY eszopiclone [Lunesta] 3 mg tablet 3 mg PO QHS Qty: 30 2RF Follow-up/Referrals: Joe Chavez MD [Primary Care Provider[facility] - [facility] Time of Disposition: 10:33
== END 2025-04-30 10:38 | disposition home or self-care (01) ==
PROVIDERS: Emergency Provider Nurse Practitioner; PCP Family Medicine
DX: J40 Bronchitis, not specified as acute or chronic (principal); E78.2 Mixed hyperlipidemia; G47.33 Obstructive sleep apnea (adult) (pediatric); K21.9 Gastro-esophageal reflux disease without esophagitis; I70.0 Atherosclerosis of aorta; I10 Essential (primary) hypertension; E03.9 Hypothyroidism, unspecified; I48.0 Paroxysmal atrial fibrillation; Z90.711 Acquired absence of uterus with remaining cervical stump; Z90.89 Acquired absence of other organs; Z96.653 Presence of artificial knee joint, bilateral; F33.9 Major depressive disorder, recurrent, unspecified; F41.9 Anxiety disorder, unspecified
CPT/HCPCS: 99213; G0463

== ENCOUNTER 2025-05-16 09:07 | Emergency (ER) | payer MEDICARE, SELFPAY ==
--- NOTE | ~2025-05-16 | XR_ITS ---
EXAMINATION: XR chest 2V 05/16/2025 09:41 INDICATION: Dizzy TECHNIQUE:Frontal and lateral images of the chest were obtained. COMPARISON: 04/13/2025 FINDINGS: Heart is mildly enlarged. No pneumothorax. No pleural effusion. No free air in the diaphragm. Small opacities in the mid and lower lungs. IMPRESSION: 1: Small opacities in the mid and lower lungs which represents atelectasis/scarring or infiltrates. Reviewed, dictated and finalized at location A. IMPRESSION: 1: Small opacities in the mid and lower lungs which represents atelectasis/sca rring or infiltrates.
--- NOTE | ~2025-05-16 | CT_ITS ---
EXAM: CT brain wo con - 05/16/2025 9:20 CDT History: 75 years old Female with dizziness COMPARISON: None available. PROCEDURE: CT of the head without contrast. Axial, sagittal and coronal reformatted planes were evaluated. Automatic exposure control was used for this study. FINDINGS: BRAIN PARENCHYMA: No acute hemorrhage. No mass effect or herniation. Nazario-white matter differentiation is maintained. Mild chronic volume loss. Scattered hypodensities in subcortical and periventricular white matter, likely representing chronic microvascular ischemic changes in this age group. Atherosc lerotic calcification of the intracranial vessels is noted. VENTRICLES/ EXTRA-AXIAL SPACES: No hydrocephalus or extra-axial fluid collection. EXTRACRANIAL STRUCTURES: No calvarial fracture. IMPRESSION: No evidence for acute intracranial hemorrhage or calvarial fracture. Reviewed, dictated and finalized at location A.
--- NOTE | 2025-05-16 09:11 | ECG_ITS ---
Test Date: 2025-05-16 09:17:51 Measurements Intervals [place] Rate: 61 P: 61 MD: 205 QRS: 26 QRSD: 106 T: 40 QT: 450 QTc: 454 Interpretive Statements SINUS RHYTHM BORDERLINE AV CONDUCTION DELAY BORDERLINE ECG No previous ECG available for comparison Electronically Signed On 05-16-2025 09:22:21 CDT by Neo Flores D.O.
--- OUTSIDE RECORDS SUMMARY | 2025-05-16 09:14 | XMS_ITS | Clinical Summary ---
Author Organization [facility] Address [address] [place] [id number] Care Team Providers Care Non Categorical Preschool Teacher Name Role Phone Joe Chavez MD [...] daily with breakfast 90 tablet 3 4 Active Active Problems Problem Noted Date Diagnosed Date Anticoagulation management encounter 05/23/2023 S/P ablation of atrial fibrillation 05/23/2023 Closed fracture of distal end of radius 12/26/19 Fracture of forearm 12/25/2022 Low back pain [...] to management today The patient has a [id number] score of 3. Given this, I recommended continued anticoagulation for thromboprophylaxis, about which she was disappointed. A newer indication for percutaneous left atrial appendage occlusion is personal preference (a IIB indication), and I provided her with material to review. 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 I [...] at this time. The patient has a [id number]-OGIy score of 3. I have therefore recommended [...] Encounters Date Type Department Care Team Description 02/13/2025 11:00 AM CDT Therapy [facility] Medicine Otolaryngology [address] [place] [address] Medical Office Building [address] [place] [address] Celena Haro, MOUNTAIN BIKE GUIDE Muscle tension dysphonia (Primary Dx) from Last 3 Months Immunizations Immunization Administration [...] EXTRACTION 2017 HYSTERECTOMY 1982 JOINT REPLACEMENT 2014, 2017 LASIK 2017 SPINE SURGERY 2018 Medical History Medical History Date Comments Disorder of thyroid Thyroid dise ase Hx Other Medical Headache, migra ine Hypertension Hypertension Hx Other Medical gerd Anxiety Depression Migraines Family History Medical History Relation Name Comments Clotting disorder Brother 1 Carlitos Coronary artery disease Brother 1 Carlitos kovacs artery disease; Cancer Brother 2 Anish Early [...] on file Legal Sex Female 2:09 AM NATUROPATH Gender Identity Female 02/24/2025 8:44 AM CDT Sexual Orientation Straight 11/24/2020 10 :12 AM NATUROPATH Obstetrics History Last Filed Vital Signs Vital Sign Reading Time Taken Comments Blood Pressure 152/76 11/22/2024 8:14 AM NATUROPATH Pulse 65 11/22/2024 8:14 AM NATUROPATH Temperature 36.8 C (98.2 F) 12/25/2022 12:16 PM CDT Respiratory Rate 22 12/25/2022 12:16 PM CDT Oxygen Saturation 97% 01/17/2024 11:24 AM CDT Inhaled Oxygen Concentration - - Weight 75 kg (165 lb 6.4 oz) 11/22/2024 8:14 AM NATUROPATH Height 157.5 cm (5' 2) 11/22/2024 8:14 AM NATUROPATH Body Mass Index 30.25 11/22/2024 8:14 AM NATUROPATH Plan of Treatment Health Maintenance Due Date Last Done Comments Breast Cancer Screening-Mammogram 1951 Colon Cancer Screening-Colonoscopy 1950 Depression Screening 1951 Fall Risk Assessment 1951 Hepatitis C Screening 1951 Osteoporosis Screening-Bone Density Scan 1951 DTaP/Tdap/Td Vaccine (1 - Tdap) 1962 Hepatitis B Screening 1969 Well Visit 65+ 2016 Influenza Vaccine (#1) 2025 0, 07/10/2019, 07/06/2018, Additional history exists Pneumococcal vaccine 65+ Completed 07/06/2018, 06/27 Zoster Vaccine Completed 09/22/2019, 07/10/2019 Medical Devices Implanted Type Area Unbundler Device Identifier Shelf Expiration Date Model / Serial / Lot [employer] Vascade Mvp 6-12fr Venous Closure [id number] - [id number] - [id number] Implanted:Qty: 1 on 12/17/2022 by Miguel Angel Garay III, MD at [facility] [employer] 09/10/2024 800-612C-1 0U / [id number] / [id number] [employer] Vascade Mvp 6-12fr Venous Closure [id number] - [id number] - [id number] Implanted:Qty: 1 on 12/17/2022 by Miguel Angel Garay III, MD at [facility] [employer] 09/10/2024 800-612C-1 0U / [id number] / [id number] [employer] Vascade Mvp 6-12fr Venous Closure [id number] - [id number] - [id number] Implanted:Qty: 1 on 12/17/2022 by Miguel Angel Garay III, MD at [facility] [employer] 09/10/2024 800-612C-1 0U / [id number] / [id number] Insurance [facility] MEDICARE ADVANTAGE UHC MEDICARE ADVANTAGE [facility] MEDICARE ADVANTAGE Care Teams Non Categorical Preschool Teacher Relationship Specialty Start Date End Date Joe Chavez MD [address] [facility] [place] [address] [place] [address] PCP - General Family Medicine 11/22/24
--- OUTSIDE RECORDS SUMMARY | 2025-05-16 09:14 | XMS_ITS | Clinical Summary ---
Author Organization [facility] Address [address] [place] [address] Care Team Providers Care Skinner Pelts Name Role Phone Christine Parra MD Primary Care Provider + Source Comments [facility],non-owned Affiliates and Associated Physician Practices is amultiple site organization consisting of ambulatory clinics and hospital sitesin [place], [place], [place] and [place]. This disclosure is being madepursuant to the Care Everywhere program and may not contain all information available regarding this patient. Last updated 18.[facility] Allergies No known active allergies Medications * Be aware that medications may not be up to date on this document. Alwaysverify current medications with the patient. LEVOTHYROXINE 10 MCG/ML PO CMPD SOLN (SYNTHROID) [...] Active vitamin D, ergocalciferol, (DRISDOL) 1.25 MG (21715 UT) capsule Take 50,000 Units by mouth every 30 days Active Aspirin (ASPIR-LOW) 81 MG Take 81 mg by mouth once daily Active vitamin B-12 ([facility] VITAMIN B-12) 500 MCG tablet Take 6,000 mcg by mouth once daily Active Active Problems Problem Noted Date Diagnosed Date Osteoarthritis of knee 06/05/2015 Overview (07/24/2020): Osteoarthritis, knee Immunizations Immunization Administration Dates Next Due INFLUENZA VACCINE, CELL [...] Average Number of Drinks Not on file Frequency of Binge Drinking Not on file 10/2018 Comments Unknown Sex and Gender Information Value Date Recorded Sex Assigned at Not on file Legal Sex Female 9:32 AM VULCANIZED FIBER UNIT OPERATOR Gender Identity Not on file Sexual Orientation Not on file Last Filed Vital Signs Vital Sign Reading Time Taken Comments Blood Pressure 154/70 07/24/2020 10:51 AM CDT Pulse 52 07/24/2020 10:51 AM CDT Temperature 36.6 C (97.8 F) 07/24/2020 10:51 AM CDT Respiratory Rate 16 08/28/2019 10:35 AM VULCANIZED FIBER UNIT OPERATOR Oxygen Saturation 96% 08/28/2019 10:35 AM VULCANIZED FIBER UNIT OPERATOR Inhaled Oxygen Concentration - - Weight 83.7 kg (184 lb 8 oz) 07/24/2020 10:51 AM CDT Height 160 cm (5' 3) 07/24/2020 10:51 AM CDT Body Mass Index [...] 2001 SCREENING FOR DIABETES 08/28/2019 COVID-19 VACCINE (1 - 2023-2 5 season) 2024 DEPRESSION SCREENING 09/27/2024 MEDICARE AWV CALENDAR YEAR 2024 INFLUENZA VACCINE (#1) 2025 , 07/10/2019, 07/04/2015 Respiratory Syncytial Virus (RSV) Vaccine Pt: or [...] complete this topic MENINGOCOCCAL (Group B) VACCINE SHARED DECISION-MAKING Aged Out No longer eligible based on patient's age to complete this topic MENINGOCOCCAL GROUPS A/C/Y/W VACCINE Aged Out No longer eligible b ased on patient's age [place] [address] [facility] MANAGED MEDICARE ADV Member Subscriber Plan / Payer (Ef fective 2018-Present) Name:Eugenia Chang Relation to Subscriber:Self Name:Eugenia Chang Payer ID:[id number] (NAIC) Type:Medicare-Managed Care Address: [address] * Guarantor: EUGENIA CHANG Account Type Relation to Patient Date of Phone Billing Address Personal/Family [address] [place] [address] SELF PAY NO INSURANCE Member Subscriber Plan / Payer (Ef fective for All Dates) Name:Eugenia Chang Member ID:Not on file Relation to Subscriber:Not on file Name:EUGENIA CHANG Subscriber ID:Not on file Address: [address] [place] [address] Payer ID:Not on file Group ID:Not on file Type:Self Pay Address: [facility] MANAGED MEDICARE ADV * Guarantor: MORIAHSUSYEUGENIA Younger Account Type Relation to Patient Date of Phone Billing Address Personal/Family [address] [place] [address] SELF PAY NO INSURANCE Member Subscriber Plan / Payer (Ef fective for All Dates) Name:Eugenai Chang Member ID:Not on file Relation to Subscriber:Not on file Name:ELIZABETHCOREYEUGENIA Younger Subscriber ID:Not on file Address: [address] [place] [address] Payer ID:Not on file Group ID:Not on file Type:Self Pay Address: [facility] MANAGED MEDICARE ADV * Guarantor: MORIAHSUSYEUGENIA Younger Account Type Relation to Patient Date of Phone Billing Address Personal/Family [address] [place] [address] SELF PAY NO INSURANCE Member Subscriber Plan / Payer (Ef fective for All Dates) Name:Eugenia Chang Member ID:Not on file Relation to Subscriber:Not on file Name:MORIAHSUSYArenEUGENIA Subscriber ID:Not on file Address: [address] [place] [address] Payer ID:Not on file Group ID:Not on file Type:Self Pay Address: [facility] MEDICARE ADV Care Teams Skinner Pelts Relationship Specialty Start Date End Date Christine Parra MD [address] [facility] [address] [place] [address] PCP - General 05/23/20
[2025-05-16 09:15] VITALS: BP 128/68; PULSE 60; RESP 17; TEMP 36.4; O2SAT 97
[2025-05-16 09:35] LABS: Hematocrit 39.5 % (37.0-47.0); Hemoglobin 12.8 g/dL (12.0-15.0); Immature Granulocyte Percent A 0.5 % (0-0.5); Lymphocytes Absolute Auto 0.98 K/mm3 (0.9-3.2); Mean Corpuscular HGB Conc 32.4 g/dl (32-36); Mean Corpuscular Hemoglobin 29.2 pg (26-34); Mean Corpuscular Volume 90.0 fl (80-100); Nucleated Red Blood Cells Absolute Auto 0.000 K/mm3 (0.0-0.012); Nucleated Red Blood Cells Perc 0.0 % (0.0-0.2); Platelet Count Result 396 k/mm3 (150-375); Red Blood Count 4.39 M/mm3 (4.2-5.4); White Blood Count 9.9 K/mm3 (4.5-10.0)
--- OUTSIDE RECORDS SUMMARY | 2025-05-16 09:48 | XMS_ITS | Clinical Summary ---
Author Organization [facility] Address [address] [place] [address] Care Team Providers Care Car Driver Name Role Phone Joe Chavez MD Primary [...] to management today The patient has a [id number]-PYTc score of 3. Given this, I recommended continued anticoagulation for thromboprophylaxis, about which she was disappointed. A newer indication for percutaneous left atrial appendage occlusion is personal preference (a IIB indication), and I provided her with material to review. 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 I [...] at this time. The patient has a DXM8NE5-VHVx score of 3. I have therefore recommended [...] Team Description 02/13/2025 11:00 AM CDT Therapy [facility] Medicine Otolaryngology [address] [place] [address] Medical Office Building [address] [place] [address] Celena Haro, CAR RENTAL SALES ASSISTANT Muscle tension dysphonia (Primary Dx) from Last [...] on file Legal Sex Female 2:09 AM ORDNANCE ARTIFICER HELPER Gender Identity Female 02/24/2025 8:44 AM CDT Sexual Orientation Straight 11/24/2020 10 :12 AM ORDNANCE ARTIFICER HELPER Obstetrics History Last Filed Vital Signs Vital Sign Reading Time Taken Comments Blood Pressure 152/76 11/22/2024 8:14 AM ORDNANCE ARTIFICER HELPER Pulse 65 11/22/2024 8:14 AM ORDNANCE ARTIFICER HELPER Temperature 36.8 C (98.2 F) 12/25/2022 12:16 PM CDT Respiratory Rate 22 12/25/2022 12:16 PM CDT Oxygen Saturation 97% 01/17/2024 11:24 AM CDT Inhaled Oxygen Concentration - - Weight 75 kg (165 lb 6.4 oz) 11/22/2024 8:14 AM ORDNANCE ARTIFICER HELPER Height 157.5 cm (5' 2) 11/22/2024 8:14 AM ORDNANCE ARTIFICER HELPER Body Mass Index 30.25 11/22/2024 8:14 AM ORDNANCE ARTIFICER HELPER Plan of Treatment Health Maintenance Due Date [...] 09/22/2019, 07/10/2019 Medical Devices Implanted Type Area Master Certified Rv Technician Device Identifier Shelf Expiration Date Model / Serial / Lot [employer] Vascade Mvp 6-12fr Venous Closure [id number] - [id number] - [id number] Implanted:Qty: 1 on 12/17/2022 by Miguel Angel Garay III, MD at [facility] [employer] 09/10/2024 800-612C-1 0U / [id number] / [id number] [employer] Vascade Mvp 6-12fr Venous Closure [id number] - [id number] - [id number] Implanted:Qty: 1 on 12/17/2022 by Miguel Angel Garay III, MD at [facility] [employer] 09/10/2024 800-612C-1 0U / [id number] / [id number] [employer] Vascade Mvp 6-12fr Venous Closure [id number] - [id number] - [id number] Implanted:Qty: 1 on 12/17/2022 by Miguel Angel Garay III, MD at [facility] [employer] 09/10/2024 800-612C-1 0U / [id number] / [id number] Insurance [facility] MEDICARE ADVANTAGE [facility] Address: [id number] [place] [address] UHC MEDICARE ADVANTAGE [facility] MEDICARE Address: [address] [address] [place] [address] [facility] MEDICARE ADVANTAGE [facility] Address: [facility] [address] [place] [address] Care Teams Car Driver Relationship Specialty Start Date End Date Joe Chavez MD [address] [facility] [address] [place] [address] PCP - General Family Medicine 11/22/24
--- OUTSIDE RECORDS SUMMARY | 2025-05-16 09:48 | XMS_ITS | Clinical Summary ---
Author Organization [facility] Address [address] [facility] [place] [address] Care Team Providers Care Customs Opener Verifier Packer Name Role Phone Christine Parra MD Primary Care Provider + Source Comments [facility],non-owned Affiliates and Associated Physician Practices is amultiple site organization consisting of ambulatory clinics and hospital sitesin [place], [place], [place] and [place]. This disclosure is being madepursuant to the Care Everywhere program and may not contain all information available regarding this patient. Last updated 18.[facility] Allergies No known active allergies Medications * [...] Active vitamin D, ergocalciferol, (DRISDOL) 1.25 MG (12256 UT) capsule Take 50,000 Units by mouth [...] on file Legal Sex Female 9:32 AM ELECTRICIAN DECK Gender Identity Not on file Sexual Orientation Not on file Last Filed Vital Signs Vital Sign Reading Time Taken Comments Blood Pressure 154/70 07/24/2020 10:51 AM CDT Pulse 52 07/24/2020 10:51 AM CDT Temperature 36.6 C (97.8 F) 07/24/2020 10:51 AM CDT Respiratory Rate 16 08/28/2019 10:35 AM ELECTRICIAN DECK Oxygen Saturation 96% 08/28/2019 10:35 AM ELECTRICIAN DECK Inhaled Oxygen Concentration - - Weight 83.7 [...] patient's age to [place] [address] [facility] MANAGED MEDICARE ADV Member Subscriber Plan / Payer (Ef fective 2018-Present) Name:Eugenia Chang Relation to Subscriber:Self Name:Eugenia Chang Payer ID:[id number] (NAIC) Type:Medicare-Managed Care Address: [address] * Guarantor: EUGENIA CHANG Account Type Relation to Patient Date of Phone Billing Address Personal/Family [address] [place] [address] SELF PAY NO INSURANCE Member Subscriber Plan / Payer (Ef fective for All Dates) Name:Eugenia Chang Member ID:Not on file Relation to Subscriber:Not on file Name:EUGENIA CHANG Subscriber ID:Not on file Address: [address] [place] [address] Payer ID:Not on file Group ID:Not on file Type:Self Pay Address: [facility] MANAGED MEDICARE ADV * Guarantor: MORIAHSUSYEUGENIA Younger Account Type Relation to Patient Date of Phone Billing Address Personal/Family [address] [place] [address] SELF PAY NO INSURANCE Member Subscriber Plan / Payer (Ef fective for All Dates) Name:Eugenia Chang Member ID:Not on file Relation to Subscriber:Not on file Name:ELIZABETHCOREYEUGENIA Younger Subscriber ID:Not on file Address: [address] [place] [address] Payer ID:Not on file Group ID:Not on file Type:Self Pay Address: [facility] MANAGED MEDICARE ADV * Guarantor: OMRIAHSUSYEUGENIA Younger Account Type Relation to Patient Date of Phone Billing Address Personal/Family [address] [place] [address] SELF PAY NO INSURANCE Member Subscriber Plan / Payer (Ef fective for All Dates) Name:Eugenia Chang Member ID:Not on file Relation to Subscriber:Not on file Name:MORIAHSUSYArenEUGENIA Subscriber ID:Not on file Address: [address] [place] [address] Payer ID:Not on file Group ID:Not on file Type:Self Pay Address: [facility] [place] [address] Care Teams Customs Opener Verifier Packer Relationship Specialty Start Date End Date Christine Parra MD [address] [facility] [address] [place] [address] PCP - General 05/23/20
[2025-05-16 09:49] LABS: Alanine Aminotransferase 20 U/L (6-35); Albumin Level 4.2 g/dL (3.5-5.1); Alkaline Phosphatase 69 U/L (38-126); Anion Gap 10 mmol/L (4-12); Aspartate Amino Transferase 30 U/L (14-36); Bilirubin,Total 0.6 mg/dL (0.2-1.3); Blood Urea Nitrogen 26 mg/dL (7-17); Calcium 9.0 mg/dL (8.4-10.2); Carbon Dioxide 24 mmol/L (22-30); Chloride 100 mmol/L (98-107); Estimated CRCL calculation 58 ml/min; Estimated Glomerular Filt Rate > 60; Glucose 115 mg/dL (65-110); Potassium 3.9 mmol/L (3.4-5.0); Sodium 134 mmol/L (137-145); Total Protein 7.1 g/dL (6.3-8.2)
[2025-05-16] MEDS: SODIUM CHLORIDE 0.9% IV 500 ML 999 ML IV CONT (10:37)
[2025-05-16] MEDS: ONDANSETRON INJ 4 MG/2 ML VIAL IV PUSH (10:37)
[2025-05-16] MEDS: ACETAMINOPHEN 500 MG TABLET 1000 MG PO (10:37)
[2025-05-16] MEDS: MECLIZINE HCL 25 MG TABLET PO (10:38)
[2025-05-16 10:40] VITALS: BP 122/61; PULSE 61; RESP 15; O2SAT 98
--- NOTE | 2025-05-16 10:55 | ED.DIZZY ---
HPI - Dizziness General Chief Complaint: Dizziness Stated Complaint: DIZZINESS Time Seen by Provider: 05/16/25 09:15 Source: patient and family Mode of arrival: wheelchair Limitations: no limitations History of Present Illness HPI Narrative: This is a 75 year old female that presents to the ER for dizziness/lightheadedness. Ongoing since last night. Does report she walked outside in the heat for a while yesterday. Reports associated nausea. Reports while seated on the toilet she had a brief syncopal episode. She did not fall. She reports feeling lightheaded prior. Reports history of similar previous syncopal epusodes. Related Data Home Medications ?Medication ?Instructions ?Recorded ?Confirmed ?Last Taken ?Type multivitamin 1 tablet PO DAILY 09/29/19 05/07/25 05/20/20 History calcium carbonate (Calcium 600) 2,400 mg PO HS 12/01/19 05/07/25 05/20/20 History cholecalciferol (vitamin D3) 125 5,000 unit PO HS 12/01/19 05/07/25 05/20/20 History mcg (5,000 unit) tablet (Vitamin D3) magnesium oxide 600 mg PO HS 01/31/24 05/07/25 Unknown History Allergies Allergy/AdvReac Type Severity Reaction Status Date / Time alendronate sodium Allergy Intermediate Hives Verified 05/16/25 09:07 nortriptyline AdvReac Severe Nightmare Verified 05/16/25 09:07 lisinopril AdvReac Mild dizzy Verified 05/16/25 10:27 Review of Systems Review of Systems: All systems reviewed & are unremarkable except as noted in HPI and below PMFSH Past Medical History Medical History Carpal tunnel syndrome on both sides Postmenopausal Mixed hyperlipidemia MDD (major depressive disorder), recurrent episode, moderate Diarrhea Clostridium difficile infection (11/2019) Obstructive sleep apnea on CPAP Depression Irritable bowel syndrome Gastroesophageal reflux disease Stress Atherosclerosis of aorta Intractable headache UTI (urinary tract infection) Stress at home Hemicrania continua Vertiginous migraine Right temporal headache Amaurosis fugax of right eye Temporal arteritis syndrome TMJ arthropathy C. difficile colitis Dehydration Antibiotic-associated diarrhea Colitis Dehydration Hypokalemia Anxiety Degenerative joint disease Hypertension Hypothyroidism Paroxysmal atrial fibrillation On metoprolol. She is not on long-term anticoagulation. History of rectal polyps Mixed hyperlipidemia Surgical History Surgical History History of partial hysterectomy History of spinal surgery (2018) L3-L4 herniated disc. History of total right knee replacement (04/12/23) History of partial thyroidectomy History of carpal tunnel release History of cataract surgery History of appendectomy History of cholecystectomy History of tubal ligation History of biopsy of temporal artery (04/2020) Negative for inflammation. History of total left knee replacement (2014) With revision in 2017. Family History Family History Mother Hypertension Uterine cancer High cholesterol Sibling PAD (peripheral artery disease) Hx of heart artery stent DVT (deep venous thrombosis) Afib Father Family history of heart disease in male family member before age 55, Onset Age: 70 CHF (congestive heart failure) Sibling Hypertension High cholesterol Sibling Pancreatic cancer History of quadruple bypass CHF (congestive heart failure) Social History Social History (Updated 05/07/25 @ 10:34 by Malia Jorgensen MA) Social History: The patient is and lives with her in [place]. 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 She smoked remotely in her teens. No alcohol or drug abuse. She designates her as her surrogate decision maker and she wishes to be a full code. Smoking status: Never smoker Second hand tobacco smoke exposure: No Alcohol intake: never Substance use: never Substance use type: does not use Do You Feel Safe in your Home?: Yes Lack of Transportation: No Lack of Food: Never True Current Housing: I Have Housing Concerned About Future Housing: No Difficulty Paying Gas/Electric Bills: No Difficulty Paying for Meds: No Currently Unemployed: No Education: High School Diploma/GED Difficulty w/ Childcare or Family Care: No Living arrangements: with family Occupation/Education: retired Gender identity (if verbalized by the patient): Female Sexual Orientation (if Verbalized by the Patient): Straight or Heterosexual Spiritual care concerns: No Agree to blood products: Yes Exam Narrative: GENERAL: Well-appearing, well-nourished, and in no acute distress. HEAD: Normocephalic, atraumatic. EYES: PERRLA and EOMI. ENT: Nares clear, no rhinorrhea or epistaxis. Mucous membranes moist. Oropharynx without tonsillar hypertrophy exudate or other lesions. Bilateral TMs pearly yarbrough non-bulging NECK: Supple. No adenopathy or masses. CHEST: Clear to auscultation. No respiratory distress. No wheezes rales or rhonchi HEART: Regular rate and rhythm. No murmur heard. Normal peripheral pulses. EXTREMITIES: Normal range of motion. No edema. SKIN: Warm, dry, no rash. NEURO: No focal deficits. Alert and oriented x3. Cranial nerves 2-12 grossly intact PSYCH: Normal mood and affect Course Course Emergency Course: Patient was updated on her workup and recommendation for admission. She does not wish to stay in the hospital at this time. Reports feeling much better. Will be continued on oral antibiotics for UTI Vital Signs Vital signs: Vital Signs Temperature 97.6 F 05/16/25 09:15 Pulse Rate 60 05/16/25 09:15 Respiratory Rate 17 05/16/25 09:15 Blood Pressure 128/68 05/16/25 09:15 Pulse Oximetry 97 05/16/25 09:15 Oxygen Delivery Room Air 05/16/25 09:15 Temperature 97.6 F 05/16/25 09:15 Pulse Rate 85 05/16/25 13:49 Respiratory Rate 16 05/16/25 13:49 Blood Pressure 123/84 05/16/25 13:49 Pulse Oximetry 98 05/16/25 13:49 Oxygen Delivery Room Air 05/16/25 09:15 MDM - Dizziness MDM Narrative Medical decision making narrative: Patient presents to the emergency department for dizziness/lightheadedness, headache, urinary symptoms. Reporting a possible brief syncopal episode this morning. She is afebrile and nontoxic appearing. Her vitals are stable. She is neurologically intact. CBC without leukocytosis. Metabolic panel without concerning findings. Urine is consistent with infection. Patient given 1st dose of antibiotics IV in the ED. Hydrated with IV fluids, given antiemetic. CT brain without acute findings. Chest x-ray shows likely atelectasis. Patient was updated on her workup and recommendation for admission. She does not wish to stay in the hospital at this time. Reports feeling much better. Will be continued on oral antibiotics for UTI. She is to follow up with PCP. She was given warnings to return to the ER Differential Diagnosis Differential diagnosis: Likely benign paroxysmal positional vertigo, orthostatic hypotension and other (UTI, dehydration, rhabdomyolysis) Lab Data Attestation: I reviewed the patient's lab results. 05/16/25 09:25 05/16/25 09:25 Labs: Lab Results 05/16/25 05/16/25 Range/Units 09:25 11:11 WBC 9.9 (4.5-10.0) K/mm3 RBC 4.39 (4.2-5.4) M/mm3 Hgb 12.8 (12.0-15.0) g/dL Hct 39.5 (37.0-47.0) % MCV 90.0 (80-100) fl MCH 29.2 (26-34) pg MCHC 32.4 (32-36) g/dl RDW 14.0 (11.5-14.5) % Plt Count 396 H (150-375) k/mm3 MPV 9.5 (7.4-10.4) fl Immature Gran % (Auto) 0.5 (0-0.5) % Neut % (Auto) 79.4 H (45.5-73.1) % Lymph % (Auto) 9.9 L (18.3-44.2) % [place] % (Auto) 8.2 (2.6-8.5) % Eos % (Auto) 1.5 (0-4.4) % Baso % (Auto) 0.5 (0.2-1.2) % Lymph # (Auto) 0.98 (0.9-3.2) K/mm3 [place] # (Auto) 0.8 H (0.1-0.6) K/mm3 Eos # (Auto) 0.2 (0-0.3) K/mm3 Baso # (Auto) 0.1 (0.0-0.1) K/mm3 Abs Immat Gran (auto) 0.05 H (0.00-0.031) K/mm3 Absolute Neuts (auto) 7.9 H (1.3-6.7) K/mm3 Absolute Nucleated RBC 0.000 (0.0-0.012) K/mm3 Nucleated RBC % 0.0 (0.0-0.2) % Sodium 134 L (137-145) mmol/L Potassium 3.9 (3.4-5.0) mmol/L Chloride 100 (98-107) mmol/L Carbon Dioxide 24 (22-30) mmol/L Anion Gap 10 (4-12) mmol/L BUN 26 H D (7-17) mg/dL Creatinine 0.70 (0.7-1.0) mg/dL Estim Creat Clear Calc 58 ml/min Estimated GFR > 60 (59 - ) Glucose 115 H (65-110) mg/dL Calcium 9.0 (8.4-10.2) mg/dL Total Bilirubin 0.6 (0.2-1.3) mg/dL AST 30 (14-36) U/L ALT 20 (6-35) U/L Alkaline Phosphatase 69 (38-126) U/L Total Creatine Kinase 36 (30-135) U/L Troponin I 0.017 (0.000-0.034) ng/mL Total Protein 7.1 (6.3-8.2) g/dL Albumin 4.2 (3.5-5.1) g/dL Urine Color Yellow (Yellow) Urine Appearance Cloudy H (Clear) Urine pH 7.5 (5.0-9.0) Ur Specific [place] 1.017 (1.001-1.035) Urine Protein Negative (Negative) mg/dL Urine Glucose (UA) Negative (Negative) mg/dL Urine Ketones Negative (Negative) mg/dL Ur Blood (Man) 1+ H (Negative) Urine Nitrate Negative (Negative) Urine Bilirubin Negative (Negative) Urine Urobilinogen 0.2 (<2.0) mg/dL Leukocyte Esterase Rfl 3+ H (Negative) RUI/UL Urine RBC 0-2 (0-2) /hpf Urine WBC >100 H (0-3) /hpf Ur Squamous Epith Cells None seen (Few) /hpf Urine Bacteria 4+ H /hpf Urine Casts 0-2 Imaging Data Radiologist's impression: ITS Impressions Head CT 05/16/25 09:37 IMPRESSION: No evidence for acute intracranial hemorrhage or calvarial fracture. Chest X-Ray 05/16/25 09:49 IMPRESSION: 1: Small opacities in the mid and lower lungs which represents atelectasis/scarring or infiltrates. ECG Data EKG #1: ECG completion date: 05/16/25 EKG Interpretation: normal rate, sinus rhythm, no ST changes and normal QT Critical Care Time Critical Care Time Critical Care Time: No Discharge Plan Discharge Clinical Impression: Acute UTI, Acute dehydration Syncope Qualifiers: Syncope type: unspecified Qualified Code(s): R55 - Syncope and collapse Patient Disposition: Home Condition: Stable Instructions: Antibiotic Form, Dehydration (ED), Urinary Tract Infection in Women (ED), Syncope (ED) Additional Instructions: Return to the emergency department if you experience fever, chest pain, shortness of breath, abdominal pain with nausea and vomiting, you pass out, or any other symptoms that are concerning to you. Rest. Remain well hydrated. Take oral antibiotic as prescribed Follow up with your primary care doctor Patient Language: Kiswahili Prescriptions: New cephalexin 500 mg capsule 500 mg PO Q12H 5 Days Qty: 10 0RF No Action multivitamin Tablet,Chewable 1 tablet PO DAILY losartan-hydrochlorothiazide 50-12.5 mg tablet 1 tablet PO DAILY Qty: 30 5RF sertraline 25 mg tablet 25 mg PO DAILY Qty: 90 1RF magnesium oxide 300 mg magnesium Tablet 600 mg PO HS calcium carbonate [Calcium 600] 600 mg calcium (1,500 mg) Tablet 2,400 mg PO HS cholecalciferol (vitamin D3) [Vitamin D3] 125 mcg (5,000 unit) Tablet 5,000 unit PO HS pravastatin 10 mg tablet 10 mg PO HS Qty: 100 1RF Rx Instructions: TAKE 1 TABLET BY MOUTH AT BEDTIME amlodipine 5 mg tablet See Rx Instructions .ROUTE .COMPLEX Qty: 90 2RF Dose Instruction: TAKE 1 TABLET BY MOUTH DAILY Rx Instructions: TAKE 1 TABLET BY MOUTH DAILY metoprolol succinate 50 mg tablet extended release 24 hr See Rx Instructions .ROUTE .COMPLEX Qty: 90 2RF Dose Instruction: TAKE 1 TABLET BY MOUTH DAILY Rx Instructions: TAKE 1 TABLET BY MOUTH DAILY levothyroxine 88 mcg tablet See Rx Instructions .ROUTE .COMPLEX Qty: 64 3RF Dose Instruction: TAKE 1 TABLET BY MOUTH DAILY WEDNESDAY THROUGH WEDNESDAY SKIP WEDNESDAY AND WEDNESDAY Rx Instructions: TAKE 1 TABLET BY MOUTH DAILY WEDNESDAY THROUGH WEDNESDAY SKIP WEDNESDAY AND WEDNESDAY omeprazole 40 mg capsule,delayed release(DR/EC) See Rx Instructions .ROUTE .COMPLEX Qty: 100 1RF Dose Instruction: TAKE 1 CAPSULE BY MOUTH DAILY Rx Instructions: TAKE 1 CAPSULE BY MOUTH DAILY eszopiclone [Lunesta] 3 mg tablet 3 mg PO QHS Qty: 30 2RF Follow-up/Referrals: Joe Chavez MD [Primary Care Provider, Family Practice]
--- NOTE | 2025-05-16 11:16 | PC.NURSE ---
Bedside report provided by Etelvina CARPENTER to this RN. All questions answered.
[2025-05-16 11:24] LABS: Add Urine Microscopic? YES; Appearance Urine Cloudy (Clear); Glucose Urine UA Negative (Negative); Leukocyte Esterase Ur 3+ LEU/UL (Negative); Nitrate Urine Negative (Negative); Non Pathogenic Casts 0-2; Specific Grav Ur 1.017 (1.001-1.035)
[2025-05-16] MEDS: cefTRIAXone 1 GM in SODIUM CHLORIDE 0.9% IV 50 ML 100 ML IVPB (12:49)
[2025-05-16 13:49] VITALS: BP 123/84; PULSE 85; RESP 16; O2SAT 98
--- NOTE | 2025-05-16 13:55 | PC.NURSE ---
Pt. states I'm ready to go home. MICHA Costa notified. Lab called for update on CK and troponin. Carlitos with lab reports that they should result in approximately 20 minutes. MICHA Costa and pt. updated.
[2025-05-16 14:01] LABS: Creatine Kinase 36 U/L (30-135)
--- NOTE | 2025-05-16 14:06 | PC.NURSE ---
Pt. walked to bathroom by this RN. Gait steady. Pt. reports dizziness. Pt. able to use bathroom independently and states she feels safe going home.
[2025-05-16 14:15] LABS: Troponin I 0.017 ng/mL (0.000-0.034)
== END 2025-05-16 14:42 | disposition home or self-care (01) ==
PROVIDERS: Emergency Medicine; Emergency Provider Physician Assistant; PCP Family Medicine
DX: N39.0 Urinary tract infection, site not specified (principal); E86.0 Dehydration; E78.2 Mixed hyperlipidemia; F33.9 Major depressive disorder, recurrent, unspecified; G47.33 Obstructive sleep apnea (adult) (pediatric); Z99.89 Dependence on other enabling machines and devices; K21.9 Gastro-esophageal reflux disease without esophagitis; E03.9 Hypothyroidism, unspecified; I10 Essential (primary) hypertension; I48.0 Paroxysmal atrial fibrillation; Z96.653 Presence of artificial knee joint, bilateral
CPT/HCPCS: 36415; 70450; 71046; 80053; 81001; 82550; 84484; 85025; 87086; 93005; 96365; 96375; 99284; A9270; J0696; J2405; J7040

== ENCOUNTER 2025-05-18 07:35 | Outpatient (CLI) | payer MEDICARE, SELFPAY ==
--- NOTE | ~2025-05-18 | MM_ITS ---
EXAMINATION: MM screening fabiola BI w diogo HISTORY: Screening mammogram, family history of breast cancer in her daughter. TECHNIQUE: Craniocaudal and mediolateral oblique 3-D tomosynthesis images were obtained and synthetic 2-D images were generated. CAD analysis was submitted and interpreted. COMPARISON: 12/29/2023, 04/22/2022 BREAST PARENCHYMAL COMPOSITION:Not Dense. There are scattered areas of fibroglandular density. FINDINGS: No suspicious mass, calcification, or architectural distortion are identified in either breast to suggest malignancy. There has been no suspicious interval change. IMPRESSION: No mammographic evidence of malignancy. Recommend routine screening mammography in one year. BI-RADS Category 1: Negative Reviewed, dictated and finalized at location .
== END 2025-05-18 07:36 | disposition home or self-care (01) ==
LOC: ANHFOHIMG 07:37
PROVIDERS: PCP Family Medicine; Visit Provider Student in an Organized Health Care Education/Training Program
DX: Z12.31 Encounter for screening mammogram for malignant neoplasm of breast (principal)
CPT/HCPCS: 77063; 77067

== ENCOUNTER 2025-08-28 13:03 | Outpatient (CLI) | payer MEDICARE, SELFPAY ==
--- NOTE | ~2025-08-28 | XR_ITS ---
EXAMINATION: XR hip RT 2V w AP pelvis, 08/28/2025 13:10 [employer]ATIONS MANAGER HISTORY: Pain in right hip x 6 weeks, no inj, no surg COMPARISON: No comparisons available. Findings: No acute fracture or malalignment. No significant degenerative changes. Soft tissues unremarkable. Impression: No acute fracture or malalignment. Reviewed, dictated and finalized at location P. 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
== END 2025-08-28 13:04 | disposition home or self-care (01) ==
LOC: GOSHIMG 13:03
PROVIDERS: PCP Family Medicine; Visit Provider Student in an Organized Health Care Education/Training Program
DX: M25.551 Pain in right hip (principal)
CPT/HCPCS: 73502